=== PATIENT | female | born 1960 | race Caucasian/White ===

== ENCOUNTER → 2017-01-19 | Day surgery (SDC) | payer OTHER ==
[2017-01-11 07:52] VITALS: Ht 175.3 cm; Wt 90.9 kg
[~2017-01-19] VITALS: Ht 175.3 cm; Wt 90.9 kg
[~2017-01-19] MED LIST: 500ML BSS 0.3ML EPI 1:1000PF IRRIG ONE; ACETAMINOPHEN 325 MG TAB PO PRN; AMVISC PLUS 0.8ML SYRINGE INT OCU ONE; ATROPINE SULFATE 0.1 MG/ML 5ML SYR IV PRN; BSS FLUSH ONE; EpHEDrine SULFATE INJ 50 MG/ML AMP IV PRN; EpINEphrine INJ 1MG/ML AMP 1 MG/ML AMP ONE; FURO-85 PO; LACTATED RINGER'S 1000ML 500 ML IV SCH; LIDOCAINE 3.5% OPH GEL PER APPLICATION CHARGE ONE; LIDOCAINE HCL 1% MPF 2 ML VIAL ONE; METH10TA6 PO; MIDAZOLAM HCL 1 MG/ML 2ML VIAL ONE; OCUCOAT 1 ML SOLN IO ONE; PHENYLEPHRINE HCL 10% OP SOLN 5 ML BTL OPL ONE; POVIDONE-IODINE OP SOLN 30 ML BTL ONE; PRED1SUS3 OPL; PROPARACAINE 0.5% OP SOLN PER DROP CHARGE OPL SCH; PROPARACAINE HCL 0.5% OP SOLN 15 ML BTL OPL ONE; TOBRAMYCIN/DEXAMETHASONE OPH OINT PER APPLN CHARGE ONE; TRAZ50TA35 PO
[2017-01-19] MEDS: PHENYLEPHRINE HCL 2.5% OP SOLN PER DROP CHARGE OPL SCH ×2 (08:10→08:15)
[2017-01-19] MEDS: TROPICAMIDE 1% OP SOLN PER DROP CHARGE OPL SCH ×2 (08:11→08:16)
[2017-01-19] MEDS: CYCLOPENTOLATE HCL 1% OP SOLN PER DROP CHARGE OPL SCH ×2 (08:12→08:17)
[2017-01-19] MEDS: KETOROLAC 0.5% OP SOLN PER DROP CHARGE OPL SCH ×2 (08:13→08:18)
[2017-01-19] MEDS: GATIFLOXACIN OP SOLN PER DROP CHARGE OPL SCH ×2 (08:14→08:24)
--- NOTE | 2017-01-19 08:25 | History & Physical Bridge - [place] ---
H&P Re-Evaluation Bridge Note: I have examined the patient, reviewed the History & Physical and in the interval since the performance of the History & Physical I have noted the following changes of clinical significance: Diagnosis: Left Cataract Procedure: Left Cataract Removal with femtosecond laser with Lens Implant No changes noted
--- NOTE | 2017-01-19 09:19 | Discharge Instructions-SurgCtr ---
Discharge Instructions Visit Reason for Visit: Cataract Left Eye Discharge Discharge Diagnosis / Problem: cataract Discharge Goals Goal(s): Improve function Activity Recommendations Activity Limitations: per Instructions/Follow-up section Anesthesia . Post Anesthesia Instructions: If you have had General Anesthesia or IV Sedation: * Do not drive today. * Resume driving when surgeon permits. * Do not make important decisions or sign legal documents today. * Call surgeon for: 1. Temperature elevations greater than 101 degrees F. 2. Uncontrollable pain. 3. Excessive bleeding. 4. Persistent nausea and vomiting. 5. Medication intolerance (nausea, vomiting or rash). * For nausea and vomiting use only clear liquids such as: tea, soda, bouillon until nausea subsides, then gradually increase diet as tolerated. * If you have any concerns or questions, call your surgeon's office. If physician is unavailable and it is an emergency, call 911 or go to the nearest emergency room. . Instructions / Follow-Up Instructions / Follow-Up ACTIVITY RECOMMENDATIONS: * No strenuous lifting, jogging or running for 4 days * No swimming or yard work for 1 week. * Limited bending is permitted, such as putting on shoes. RETURN TO SCHOOL/WORK: No work until seen by physician in office. MEDICATIONS: Resume previous medications unless instructed otherwise by your surgeon. This includes eye drops for glaucoma. Zymaxid/Gatifloxacin (lee cap) - one drop every 2 hours until bedtime Nevanac/Ilevro/Prolensa/Ketorolac (bocanegra cap) - one drop every 4 hours until bedtime Prednisolone (white/pink cap, SHAKE WELL) - one drop every 2 hours until bedtime Starting tomorrow - all 3 drops every 4 hours until seen in the office Optive drops - as needed for discomfort SPECIAL CARE INSTRUCTIONS: * Wear eyeshield when sleeping, for four nights. * You may wear your own glasses or sunglasses while awake. * You may read or watch TV * You may shower and wash your face, but be gentle around the eye and pat dry. * Blurry vision and mild irritation are normal. * Call office if pain is more severe or vision becomes dark at . FOLLOW UP VISIT: Follow-up with Dr Valladares tomorrow. Diet Recommendations Home Diet: resume previous diet Procedures Procedures Performed: Left Cataract Phacoemulsification With Intraocular Lens Implant Pending Studies Studies pending at discharge: no Medical Emergencies . Who to Call and When: Medical Emergencies: If at any time you feel your situation is an emergency, please call 911 immediately. . Non-Emergent Contact Non-Emergency issues call your: [place] . . "Provider Documentation" section prepared by Brody Valladares.
[2017-01-19 09:21] VITALS: TEMP 36.5
--- NOTE | 2017-01-19 09:21 | [facility] Operative Report ---
Operative Report Date of Service Jan 19, 2017. Operative Report 1. PREOPERATIVE DIAGNOSIS: Cataract of the left eye. 2. POSTOPERATIVE DIAGNOSIS: Same. 3. PROCEDURE: Phacoemulsification with femtosecond intraocular lens implantation of the left eye. SURGEON: Dr. Brody Valladares. ANESTHESIA: Topical Lidocaine gel, 1% Non- Preserved intracameral Lidocaine, and monitored intravenous sedation. INDICATIONS FOR THE PROCEDURE: The patient is a 56 - year-old female with a history of cataract of the left eye causing significant visual impairment. The details of the proposed procedure were explained to the patient who asked appropriate questions and following discussion of all risks, benefits and alternatives agreed to have the procedure done. 4. OPERATION AND FINDINGS: DESCRIPTION OF PROCEDURE: After informed consent was obtained, the patient was brought to the Laser room at the [facility]. After docking with the LenSx Laser the capsulorhexis, lens chopping, and primary corneal incision were accomplished. The patient was brought to the Operating Room at the [facility]. The patient was placed in a supine position and then the left eye was prepped and draped in the usual sterile fashion for intraocular surgery. A drop of topical Lidocaine gel was placed in the operative eye. A wire lid speculum was then placed in the fornices. A corneal paracentesis was then created temporally. The Non-Preserved Lidocaine was then instilled into the anterior chamber. The anterior chamber was then pressurized with viscoelastic. A 2.0 mm clear corneal incision was then created temporally. A cystotome was inserted into the anterior chamber and used to verify a continuous curvilinear capsulorrhexis. Hydrodissection was accomplished with balanced salt solution. Phacoemulsification of the lens nucleus was then performed in a standard [id number] technique. The phaco time was 11 seconds with an average power of 4 %. The remaining cortical material was removed using irrigation aspiration. The capsular bag was then filled with viscoelastic. A Bausch & Lomb MI60L +05.0 diopters lens was then loaded into the injector and injected into the capsular bag. The remaining viscoelastic was removed with the irrigation aspiration handpiece. The wound was hydrated and then checked and found to be watertight. The intraocular pressure was checked and found to be adequate. The wire lid speculum was removed and the patient's face was cleaned and dried. TobraDex ointment was placed in the inferior fornix. The patient was discharged to the Recovery Room having tolerated the procedure well. There were no complications. The patient will be seen tomorrow in the office for follow-up. I attest to the content of the Intraoperative Record and any orders documented therein. Any exceptions are noted below.
[2017-01-19 09:36] VITALS: BP 160/89; PULSE 61; O2SAT 99
--- NOTE | 2017-01-19 09:45 | Anesthesia Progress Nt - [facility] ---
Anesthesia Post Op Note Date & Time Jan 19, 2017 at 09:45 Vital Signs Pain Intensity: 0 Vital Signs Past 12 Hours Date Time Temp Pulse Resp B/P Pulse Ox O2 Delivery O2 Flow Rate FiO2 01/19/17 09:36 61 16 160/89 99 Room Air 01/19/17 09:21 36.5 60 16 159/89 98 Room Air 01/19/17 08:58 65 16 177/108 98 01/19/17 08:53 68 16 179/98 99 01/19/17 08:00 36.4 63 16 138/87 97 Room Air Notes Mental Status: alert / awake / arousable, participated in evaluation Pt Amnestic to Procedure: Yes Nausea / Vomiting: adequately controlled Pain: adequately controlled Airway Patency, RR, SpO2: stable & adequate BP & HR: stable & adequate Hydration State: stable & adequate Anesthetic Complications: no major complications apparent
== END | disposition home or self-care (01) ==
LOC: X.SURG 07:49
PROVIDERS: ATTEND Ophthalmology
DX: H26.9 Unspecified cataract (principal); F17.200 Nicotine dependence, unspecified, uncomplicated; E05.00 Thyrotoxicosis with diffuse goiter without thyrotoxic crisis or storm; Z79.899 Other long term (current) drug therapy; E66.9 Obesity, unspecified; Z68.29 Body mass index [BMI] 29.0-29.9, adult; Z83.511 Family history of glaucoma; Z83.3 Family history of diabetes mellitus; Z82.3 Family history of stroke

== ENCOUNTER → 2017-02-09 | Day surgery (SDC) | payer OTHER ==
[2017-01-29 10:32] VITALS: Ht 175.3 cm; Wt 90.9 kg
[~2017-02-09] VITALS: Ht 175.3 cm; Wt 90.9 kg
[~2017-02-09] MED LIST changes: -EpHEDrine SULFATE INJ 50 MG/ML AMP IV PRN; -PHENYLEPHRINE HCL 10% OP SOLN 5 ML BTL OPL ONE; -PROPARACAINE 0.5% OP SOLN PER DROP CHARGE OPL SCH; +PROPARACAINE 0.5% OP SOLN PER DROP CHARGE OPR SCH; -PROPARACAINE HCL 0.5% OP SOLN 15 ML BTL OPL ONE
[2017-02-09] MEDS: PHENYLEPHRINE HCL 2.5% OP SOLN PER DROP CHARGE OPR SCH ×2 (07:38→07:43)
[2017-02-09] MEDS: TROPICAMIDE 1% OP SOLN PER DROP CHARGE OPR SCH ×2 (07:39→07:44)
[2017-02-09] MEDS: CYCLOPENTOLATE HCL 1% OP SOLN PER DROP CHARGE OPR SCH ×2 (07:40→07:45)
[2017-02-09] MEDS: KETOROLAC 0.5% OP SOLN PER DROP CHARGE OPR SCH ×2 (07:41→07:46)
[2017-02-09] MEDS: GATIFLOXACIN OP SOLN PER DROP CHARGE OPR SCH ×2 (07:42→07:52)
--- NOTE | 2017-02-09 07:43 | History & Physical Bridge - [place] ---
H&P Re-Evaluation Bridge Note: I have examined the patient, reviewed the History & Physical and in the interval since the performance of the History & Physical I have noted the following changes of clinical significance: No changes noted
--- NOTE | 2017-02-09 08:28 | [facility] Operative Report ---
Operative Report Date of Service Feb 09, 2017. Operative Report 1. PREOPERATIVE DIAGNOSIS: Cataract of the right eye. 2. POSTOPERATIVE DIAGNOSIS: Same. 3. PROCEDURE: Phacoemulsification with intraocular lens implantation of the right eye. SURGEON: Dr. Brody Valladares. ANESTHESIA: Topical Lidocaine gel, 1% Non- Preserved intracameral Lidocaine, and monitored intravenous sedation. INDICATIONS FOR THE PROCEDURE: The patient is a 56 - year-old female with a history of cataract of the right eye causing significant visual impairment. The details of the proposed procedure were explained to the patient who asked appropriate questions and following discussion of all risks, benefits and alternatives agreed to have the procedure done. 4. OPERATION AND FINDINGS: DESCRIPTION OF PROCEDURE: After informed consent was obtained, the patient was brought to the Operating Room at the [facility]. The patient was placed in a supine position and then the right eye was prepped and draped in the usual sterile fashion for intraocular surgery. A drop of topical Lidocaine gel was placed in the operative eye. A wire lid speculum was then placed in the fornices. A corneal paracentesis was then created temporally. The Non-Preserved Lidocaine was then instilled into the anterior chamber. The anterior chamber was then pressurized with viscoelastic. A 2.0 mm clear corneal incision was then created temporally. A cystotome was inserted into the anterior chamber and used to create a tear in the anterior lens capsule. This capsular tear was then used to create a small flap and the flap was dragged in a counterclockwise direction in order to create a continuous curvilinear capsulorrhexis. Hydrodissection was accomplished with balanced salt solution. Phacoemulsification of the lens nucleus was then performed in a standard [id number] technique. The phaco time was 18 seconds with an average power of 6 %. The remaining cortical material was removed using irrigation aspiration. The capsular bag was then filled with viscoelastic. A Bausch & Lomb MI60L +08.0 diopters lens was then loaded into the injector and injected into the capsular bag. The remaining viscoelastic was removed with the irrigation aspiration handpiece. The wound was hydrated and then checked and found to be watertight. The intraocular pressure was checked and found to be adequate. The wire lid speculum was removed and the patient's face was cleaned and dried. TobraDex ointment was placed in the inferior fornix. The patient was discharged to the Recovery Room having tolerated the procedure well. There were no complications. The patient will be seen tomorrow in the office for follow-up. I attest to the content of the Intraoperative Record and any orders documented therein. Any exceptions are noted below.
--- NOTE | 2017-02-09 08:28 | Discharge Instructions-SurgCtr ---
Discharge Instructions Date of Service Feb 09, 2017. Visit Reason for Visit: Cataract Right Eye Discharge Discharge Diagnosis / Problem: cataract Discharge Goals Goal(s): Improve function Activity Recommendations Activity Limitations: per Instructions/Follow-up section Anesthesia . Post Anesthesia Instructions: If you have had General Anesthesia or IV Sedation: * Do not drive today. * Resume driving when surgeon permits. * Do not make important decisions or sign legal documents today. * Call surgeon for: 1. Temperature elevations greater than 101 degrees F. 2. Uncontrollable pain. 3. Excessive bleeding. 4. Persistent nausea and vomiting. 5. Medication intolerance (nausea, vomiting or rash). * For nausea and vomiting use only clear liquids such as: tea, soda, bouillon until nausea subsides, then gradually increase diet as tolerated. * If you have any concerns or questions, call your surgeon's office. If physician is unavailable and it is an emergency, call 911 or go to the nearest emergency room. . Instructions / Follow-Up Instructions / Follow-Up ACTIVITY RECOMMENDATIONS: * No strenuous lifting, jogging or running for 4 days * No swimming or yard work for 1 week. * Limited bending is permitted, such as putting on shoes. RETURN TO SCHOOL/WORK: No work until seen by physician in office. MEDICATIONS: Resume previous medications unless instructed otherwise by your surgeon. This includes eye drops for glaucoma. Zymaxid/Gatifloxacin (lee cap) - one drop every 2 hours until bedtime Nevanac/Ilevro/Prolensa/Ketorolac (bocanegra cap) - one drop every 4 hours until bedtime Prednisolone (white/pink cap, SHAKE WELL) - one drop every 2 hours until bedtime Starting tomorrow - all 3 drops every 4 hours until seen in the office Optive drops - as needed for discomfort SPECIAL CARE INSTRUCTIONS: * Wear eyeshield when sleeping, for four nights. * You may wear your own glasses or sunglasses while awake. * You may read or watch TV * You may shower and wash your face, but be gentle around the eye and pat dry. * Blurry vision and mild irritation are normal. * Call office if pain is more severe or vision becomes dark at . FOLLOW UP VISIT: Follow-up with Dr Valladares tomorrow. Diet Recommendations Home Diet: resume previous diet Procedures Procedures Performed: Right Cataract Phacoemulsification With Intraocular Lens Implant Pending Studies Studies pending at discharge: no Medical Emergencies . Who to Call and When: Medical Emergencies: If at any time you feel your situation is an emergency, please call 911 immediately. . Non-Emergent Contact Non-Emergency issues call your: Office Support Assistant . . "Provider Documentation" section prepared by Brody Valladares.
[2017-02-09 08:29] VITALS: TEMP 36.5
--- NOTE | 2017-02-09 08:31 | Anesthesia Progress Nt - [facility] ---
Anesthesia Post Op Note Date & Time Feb 09, 2017 at 08:31 Vital Signs Pain Intensity: 0 Vital Signs Past 12 Hours Date Time Temp Pulse Resp B/P Pulse Ox O2 Delivery O2 Flow Rate FiO2 02/09/17 07:18 36.5 69 16 149/87 95 Room Air Notes Mental Status: alert / awake / arousable, participated in evaluation Pt Amnestic to Procedure: Yes Nausea / Vomiting: adequately controlled Pain: adequately controlled Airway Patency, RR, SpO2: stable & adequate BP & HR: stable & adequate Hydration State: stable & adequate Anesthetic Complications: no major complications apparent
[2017-02-09 08:51] VITALS: BP 155/88; PULSE 64; O2SAT 100
== END | disposition home or self-care (01) ==
LOC: X.SURG 07:03
PROVIDERS: ATTEND Ophthalmology
DX: H26.9 Unspecified cataract (principal); H54.7 Unspecified visual loss; E05.00 Thyrotoxicosis with diffuse goiter without thyrotoxic crisis or storm; F17.200 Nicotine dependence, unspecified, uncomplicated

== ENCOUNTER 2023-02-06 13:29 | Inpatient (IN) ==
--- NOTE | 2023-02-06 14:16 | XRay Report ---
XR chest 1V portable CLINICAL HISTORY: Sepsis COMPARISON STUDY: Chest radiograph June 19, 2014. Chest CT January 13, 2013. FINDINGS: Right internal jugular [id number] is in place. There is no pneumothorax or pleural effus ion. Linear bilateral densities favor atelectasis or scarring. No evidence for pulmonary edema. Cardi omediastinal silhouette is unremarkable. IMPRESSION: 1. No acute cardiopulmonary findings. 2. Linear lower lung densities suggestive of atelectasis. ACT 112: Negative or not required by law. Electronically signed by: Leonides Aiken M.D. 02/06/2023 2:15 PM
[2023-02-06] MEDS ORDERED: CEFEPIME 2,000 MG/20 ML VIAL IV STA (14:26)
[2023-02-06] MEDS ORDERED: MoRPHine SULFATE 4 MG/ML 1 ML CARP\\VIAL IV STA (14:26)
[2023-02-06] MEDS ORDERED: ONDANSETRON INJ 2 MG/ML 2 ML VIAL IV STA (14:26)
--- NOTE | 2023-02-06 14:26 | Emergency Department Note ---
Impression & Plan Perforated bowel, Metastatic colon cancer in female, Abdominal abscess ED Provider Note NAME: ANISA BAXTER AGE: 62 SEX: F : 1960 ARRIVES VIA: Walk-In INFORMANT: Patient ED PROVIDER(S): Reese Lewis DO CHIEF COMPLAINT: Fever HPI: Patient is a 62-year-old female with a past medical history of metastatic colon cancer whs currently undergoing radiation that started this week. She was received radiation all week. She is currently receiving it here at [place]. She notes that she is having lower back pain as well as fevers of 101-102 and abdominal pain. She does not think her abdominal pain got significantly worse. She denies any headache or change in vision. No cough or congestion. No runny nose or sore throat. No chest pain or shortness of breath. No dysuria, urgency, or frequency. No other exacerbating or remitting factors. She has not started chemotherapy yet. PAST MEDICAL HISTORY:See Below PAST SURGICAL HISTORY:See Below FAMILY HISTORY:See Below SOCIAL HISTORY:See Below HOME MEDICATIONS:See Below ALLERGIES:See Below VITALS:See Below PHYSICAL EXAMINATION: GENERAL: Sitting up in bed, alert, disheveled, slightly ill-appearing EYE EXAM: normal conjunctiva. OROPHARYNX: mucous membranes are dry NECK: supple, no nuchal rigidity, no adenopathy, non-tender LUNGS: Clear to auscultation. Normal chest wall mechanics HEART: no murmurs, S1 normal and S2 normal ABDOMEN: abdomen soft, diffuse tenderness throughout the lower r, normo-active bowel sounds, no masses, no rebound or guarding. UPPER EXTREMITIES: upper extremities are grossly normal. LOWER EXTREMITIES: No pitting edema. NEURO EXAM: Normal sensorium, cranial nerves II-XII grossly intact, normal speech, no gross weakness of arms, no gross weakness of legs. MEDICAL DECISION MAKING: Patient is a 62-year-old female who with known rectal cancer that presents ER for abdominal pain and fever as well as back pain. IV was established blood work is obtained. Labs show mild leukocytosis of 11,000. Mild anemia 8.5 consistent with previous. BMP with mild hypokalemia 3.3. LFTs bilirubin was unremarkable. Troponin slightly up at 20 but was downward trending. Pro-Ke elevated at 1.8. UA was clean. Bio fire was negative including COVID. CT abdomen pelvis shows rectal cancer with perforation and contained in a likely abscess. Did discuss with Sina Aiken from IR who recommended transferring. Discussed with Dr. Cornelius from general surgery who recommended transferring. Jovani candelario this discussed with Dr. Montilla from [facility] after discussion with the patient who prefer to go to [facility]. Patient was accepted in transfer. She was given IV cefepime and Flagyl while in the ER as well as 2.5 L of IV fluids. She is updated bedside. Due to the current transportation issues she will not be able to go until midmorning tomorrow and consequently she was discussed with Dr. Pedraza approved for further observation management overnight. She was given multiple doses of morphine while in the ER. Is currently a full code. Triage Nursing notes reviewed. Limited review of prior medical records performed Vital Signs: reviewed and remarkable for tachy Differential diagnosis: Differential diagnosis includes etiologies such as sepsis, UTI, pneumonia, metabolic, electrolyte abnormalities, cardiac sources, intracerebral event, toxicologic, neurological, as well as others were entertained. ER treatment provided: See below Diagnostics interpreted by me include EKG and cardiac monitoring as listed below: -Cardiac Monitoring: An order was placed for continuous cardiac monitoring. The monitor shows a rate of 80 with sinus rhythm. -ECG: none -Laboratory studies:Interpreted by me as stated above in MDM and shown below. Imaging studies: Xrays: As interpreted by me:none CTs show: CT abdomen pelvis per radiology shows perforated bowel with a walled off likely abscess Consultation(s): Discussed with our radiologist/IR, her surgeon as well is [facility]'s acute care surgery Dr. Montilla and her hospitalist Dr. Pedraza approved for admission while awaiting transfer Procedures:none Critical Care: None Past Med/Surg History Medical History (Updated 02/06/23 @ 19:54 by Reese Lewis DO) Graves disease Metastatic colon cancer in female (01/01/23) No pertinent past medical history Surgical History (Updated 01/25/23 @ 08:22 by Faiza Lombardo, SUJEY) History of cervical cerclage History of liver biopsy 01/01/23 Hx of cataract surgery Bilateral Hx of colonoscopy 01/01/23 with biopsy of colon mass Previous section S/P fine needle aspiration Pancreas on 01/01/23 Family History (Updated 01/25/23 @ 08:25 by Faiza Lombardo, SUJEY) Mother , 86yo Cervical cancer Hypertension Father , 86yo Diverticulitis CHF (congestive heart failure) Hypertension Brother No problems noted. Brother No problems noted. Brother No problems noted. Sister Hypertension Sister Hypertension Sister No problems noted. Daughter No problems noted. Daughter No problems noted. 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 How many Children do You have: 2 Feels Safe at Home: Yes caffeine: Yes (3-4 cups/day) during the past year weight has: decreased > 10 lbs Allergies Allergies Allergy/AdvReac Type Severity Reaction Status Date / Time amoxicillin Allergy Severe FACE Verified 02/06/23 15:07 SWELLED bupropion Allergy Severe ANAPHYLAXIS Verified 02/06/23 15:07 Home Meds Home Medications Medication Instructions Recorded Confirmed multivitamin 1 tab PO DAILY 12/30/22 02/06/23 docusate sodium 100 mg capsule 100 mg PO DAILY PRN Constipation 01/25/23 02/06/23 (Colace) lisinopril 10 mg tablet 10 mg PO DAILY 01/25/23 02/06/23 ondansetron HCl 4 mg tablet 4 mg PO Q8H PRN Nausea 01/25/23 02/06/23 sennosides 8.6 mg tablet 8.6 mg PO DAILY PRN Constipation 01/25/23 02/06/23 (Evac-U-Gen (sennosides)) tramadol 50 mg tablet 50 mg PO Q6H PRN Pain 01/25/23 02/06/23 acetaminophen 650 mg 650 mg PO Q12H PRN Pain 02/06/23 02/06/23 tablet,extended release (Tylenol Arthritis Pain) Results & Data (ED) Vital Signs Vital Signs - 24 hr 02/06/23 13:36 02/06/23 14:39 02/06/23 15:09 Temperature 36 C L Temperature Source Temporal Artery Scan Pulse Rate 107 H 97 H Pulse Rate [Apical] Pulse Rate from SpO2 Sensor 95 H Pulse Rhythm [Apical] Respiratory Rate 16 19 Respiratory Effort / Characteristics Non-Labored Respiratory Depth Normal Respiratory Pattern Blood Pressure 134/63 166/77 H 154/81 H Blood Pressure [Right Arm] Blood Pressure Mean 86 106 105 Blood Pressure Mean [Right Arm] Blood Pressure Position [Right Arm] Pulse Oximetry 96 95 Oxygen Delivery Method Room Air Room Air Sepsis Recent Fever Within 48 Hours Yes Sepsis New/Unexplained Change in Mental Status No Sepsis Action Taken by Nursing No Action Required 02/06/23 15:50 02/06/23 15:09 02/06/23 15:15 Temperature Temperature Source Pulse Rate 89 93 H 93 H Pulse Rate [Apical] Pulse Rate from SpO2 Sensor 94 H 94 H Pulse Rhythm [Apical] Respiratory Rate 21 Respiratory Effort / Characteristics Respiratory Depth Respiratory Pattern Blood Pressure 154/81 H 161/70 H Blood Pressure [Right Arm] Blood Pressure Mean 105 100 Blood Pressure Mean [Right Arm] Blood Pressure Position [Right Arm] Pulse Oximetry 94 Oxygen Delivery Method Sepsis Recent Fever Within 48 Hours Sepsis New/Unexplained Change in Mental Status Sepsis Action Taken by Nursing 02/06/23 15:30 02/06/23 15:45 02/06/23 16:00 Temperature Temperature Source Pulse Rate 92 H 93 H 90 Pulse Rate [Apical] Pulse Rate from SpO2 Sensor 92 H 93 H Pulse Rhythm [Apical] Respiratory Rate 18 20 15 Respiratory Effort / Characteristics Respiratory Depth Respiratory Pattern Blood Pressure 165/72 H 159/82 H 149/60 H Blood Pressure [Right Arm] Blood Pressure Mean 103 107 89 Blood Pressure Mean [Right Arm] Blood Pressure Position [Right Arm] Pulse Oximetry 93 94 94 Oxygen Delivery Method Sepsis Recent Fever Within 48 Hours Sepsis New/Unexplained Change in Mental Status Sepsis Action Taken by Nursing 02/06/23 17:21 02/06/23 17:25 02/06/23 17:21 Temperature 36.9 C Temperature Source Oral Pulse Rate 84 Pulse Rate [Apical] 85 82 Pulse Rate from SpO2 Sensor Pulse Rhythm [Apical] Regular Respiratory Rate 19 18 20 Respiratory Effort / Characteristics Non-Labored Spontaneous Non-Labored Spontaneous Respiratory Depth Normal Respiratory Pattern Blood Pressure Blood Pressure [Right Arm] 159/88 H 159/88 H Blood Pressure Mean Blood Pressure Mean [Right Arm] 111 111 Blood Pressure Position [Right Arm] Semi-fowlers Pulse Oximetry 95 97 95 Oxygen Delivery Method Room Air Room Air Sepsis Recent Fever Within 48 Hours Sepsis New/Unexplained Change in Mental Status Sepsis Action Taken by Nursing 02/06/23 18:00 02/06/23 18:45 02/06/23 19:28 Temperature Temperature Source Pulse Rate 82 Pulse Rate [Apical] 83 83 Pulse Rate from SpO2 Sensor Pulse Rhythm [Apical] Respiratory Rate 14 16 Respiratory Effort / Characteristics Non-Labored Spontaneous Respiratory Depth Normal Respiratory Pattern Regular Blood Pressure Blood Pressure [Right Arm] 168/102 H 161/89 H Blood Pressure Mean Blood Pressure Mean [Right Arm] 124 113 Blood Pressure Position [Right Arm] Pulse Oximetry 95 92 Oxygen Delivery Method Room Air Room Air Sepsis Recent Fever Within 48 Hours Sepsis New/Unexplained Change in Mental Status Sepsis Action Taken by Nursing Laboratory Data 02/06/23 14:32 02/06/23 14:32 Lab Results 02/06/23 02/06/23 02/06/23 Range/Units 14:32 14:32 14:32 WBC 11.48 H (4.8-10.8) K/ul RBC 3.72 L (4.20-5.40) M/uL Hgb 8.5 L (12.0-16.0) g/dl Hct 27.5 L (37.0-47.0) % MCV 73.9 L (80.0-100.0) fL MCH 22.8 L (25.0-34.0) pg MCHC 30.9 L (32.0-36.0) g/dL RDW Std Deviation 59.4 H (36.4-46.3) fL RDW Coeff of Roberto Carlos 23.9 H (11.5-14.5) % Plt Count 359 (130-400) K/uL MPV 9.9 (9.4-12.4) fL Immature Gran % (Auto) 2.0 % Neut % (Auto) 92.8 % Lymph % (Auto) 1.6 % [place] % (Auto) 3.0 % Eos % (Auto) 0.1 % Baso % (Auto) 0.5 % Neut # (Auto) 10.66 H (1.40-6.50) K/uL Lymph # (Auto) 0.18 L (1.2-3.4) K/uL [place] # (Auto) 0.34 (0.11-0.59) K/uL Eos # (Auto) 0.01 (0-0.50) K/uL Baso # (Auto) 0.06 (0-0.2) K/uL Immature Gran # (Auto) 0.23 H (0.01-0.20) K/uL Polychromasia 1+ Anisocytosis Present Sodium 132 L (136-145) mmol/L Potassium 3.3 L (3.5-5.1) mmol/L Chloride 99 (98-107) mmol/L Carbon Dioxide 23 (21-32) mmol/L Anion Gap 10 (3-11) BUN 14 (6-23) mg/dl Creatinine 0.54 L (0.6-1.2) mg/dl Est Cr Clr Drug Dosing 125.6 ml/min Est GFR ( Amer) 117.2 ml/min Est GFR (Non-Af Amer) 101.1 ml/min BUN/Creatinine Ratio 25.9 H (10-20) Glucose 102 H (70-99(Fasting)) mg/dl Lactate (0.4-2.0) mmol/L Calcium 9.3 (8.5-10.1) mg/dl Magnesium 1.8 (1.7-2.4) mg/dl Total Bilirubin 0.7 (0.2-1.0) mg/dl Direct Bilirubin 0.3 H (0-0.2) mg/dl AST 53 H (13-39) U/L ALT 20 (7-52) U/L Alkaline Phosphatase 493 H (34-104) U/L Troponin I High Sens 23.7 H (0-14) pg/ml Total Protein 6.7 (6.0-8.3) gm/dl Albumin 3.2 L (3.4-5.0) gm/dl Procalcitonin 1.84 H (0-0.5) ng/ml Urine Color Urine Appearance (Clear) Urine pH (4.5-7.5) Ur Specific [place] (1.000-1.030) Urine Protein (Negative) Urine Glucose (UA) (Negative) Urine Ketones (Negative) Urine Blood (Negative) Urine Nitrite (Negative) Urine Bilirubin (Negative) Urine Urobilinogen (Negative) Ur Leukocyte Esterase (Negative) Adenovirus (PCR) (NotDetected) B. pertussis DNA (PCR) (NotDetected) B.parapertussis DNA PCR (NotDetected) C. pneumoniae DNA (PCR) (NotDetected) Coronavirus OC43 (PCR) (NotDetected) Coronavirus HKU1 (PCR) (NotDetected) Coronavirus 229E (PCR) (NotDetected) SARS-CoV-2 (PCR) (NotDetected) Coronavirus NL63 (PCR) (NotDetected) Human Metapneumovir PCR (NotDetected) Influenza Type A (PCR) (NotDetected) Influenza Type B (PCR) (NotDetected) M. pneumoniae (PCR) (NotDetected) Parainfluenza 1 (PCR) (NotDetected) Parainfluenza 2 (PCR) (NotDetected) Parainfluenza 3 (PCR) (NotDetected) Parainfluenza 4 (PCR) (NotDetected) RSV (PCR) (NotDetected) Entero/Rhino (PCR) (NotDetected) 02/06/23 02/06/23 02/06/23 Range/Units 14:37 14:46 16:36 WBC (4.8-10.8) K/ul RBC (4.20-5.40) M/uL Hgb (12.0-16.0) g/dl Hct (37.0-47.0) % MCV (80.0-100.0) fL MCH (25.0-34.0) pg MCHC (32.0-36.0) g/dL RDW Std Deviation (36.4-46.3) fL RDW Coeff of Roberto Carlos (11.5-14.5) % Plt Count (130-400) K/uL MPV (9.4-12.4) fL Immature Gran % (Auto) % Neut % (Auto) % Lymph % (Auto) % [place] % (Auto) % Eos % (Auto) % Baso % (Auto) % Neut # (Auto) (1.40-6.50) K/uL Lymph # (Auto) (1.2-3.4) K/uL [place] # (Auto) (0.11-0.59) K/uL Eos # (Auto) (0-0.50) K/uL Baso # (Auto) (0-0.2) K/uL Immature Gran # (Auto) (0.01-0.20) K/uL Polychromasia Anisocytosis Sodium (136-145) mmol/L Potassium (3.5-5.1) mmol/L Chloride (98-107) mmol/L Carbon Dioxide (21-32) mmol/L Anion Gap (3-11) BUN (6-23) mg/dl Creatinine (0.6-1.2) mg/dl Est Cr Clr Drug Dosing ml/min Est GFR ( Amer) ml/min Est GFR (Non-Af Amer) ml/min BUN/Creatinine Ratio (10-20) Glucose (70-99(Fasting)) mg/dl Lactate 2.3 H* 1.8 (0.4-2.0) mmol/L Calcium (8.5-10.1) mg/dl Magnesium (1.7-2.4) mg/dl Total Bilirubin (0.2-1.0) mg/dl Direct Bilirubin (0-0.2) mg/dl AST (13-39) U/L ALT (7-52) U/L Alkaline Phosphatase (34-104) U/L Troponin I High Sens (0-14) pg/ml Total Protein (6.0-8.3) gm/dl Albumin (3.4-5.0) gm/dl Procalcitonin (0-0.5) ng/ml Urine Color Urine Appearance (Clear) Urine pH (4.5-7.5) Ur Specific [place] (1.000-1.030) Urine Protein (Negative) Urine Glucose (UA) (Negative) Urine Ketones (Negative) Urine Blood (Negative) Urine Nitrite (Negative) Urine Bilirubin (Negative) Urine Urobilinogen (Negative) Ur Leukocyte Esterase (Negative) Adenovirus (PCR) Not Detected (NotDetected) B. pertussis DNA (PCR) Not Detected (NotDetected) B.parapertussis DNA PCR Not Detected (NotDetected) C. pneumoniae DNA (PCR) Not Detected (NotDetected) Coronavirus OC43 (PCR) Not Detected (NotDetected) Coronavirus HKU1 (PCR) Not Detected (NotDetected) Coronavirus 229E (PCR) Not Detected (NotDetected) SARS-CoV-2 (PCR) Not Detected (NotDetected) Coronavirus NL63 (PCR) Not Detected (NotDetected) Human Metapneumovir PCR Not Detected (NotDetected) Influenza Type A (PCR) Not Detected (NotDetected) Influenza Type B (PCR) Not Detected (NotDetected) M. pneumoniae (PCR) Not Detected (NotDetected) Parainfluenza 1 (PCR) Not Detected (NotDetected) Parainfluenza 2 (PCR) Not Detected (NotDetected) Parainfluenza 3 (PCR) Not Detected (NotDetected) Parainfluenza 4 (PCR) Not Detected (NotDetected) RSV (PCR) Not Detected (NotDetected) Entero/Rhino (PCR) Not Detected (NotDetected) 02/06/23 02/06/23 Range/Units 17:20 17:57 WBC (4.8-10.8) K/ul RBC (4.20-5.40) M/uL Hgb (12.0-16.0) g/dl Hct (37.0-47.0) % MCV (80.0-100.0) fL MCH (25.0-34.0) pg MCHC (32.0-36.0) g/dL RDW Std Deviation (36.4-46.3) fL RDW Coeff of Roberto Carlos (11.5-14.5) % Plt Count (130-400) K/uL MPV (9.4-12.4) fL Immature Gran % (Auto) % Neut % (Auto) % Lymph % (Auto) % [place] % (Auto) % Eos % (Auto) % Baso % (Auto) % Neut # (Auto) (1.40-6.50) K/uL Lymph # (Auto) (1.2-3.4) K/uL [place] # (Auto) (0.11-0.59) K/uL Eos # (Auto) (0-0.50) K/uL Baso # (Auto) (0-0.2) K/uL Immature Gran # (Auto) (0.01-0.20) K/uL Polychromasia Anisocytosis Sodium (136-145) mmol/L Potassium (3.5-5.1) mmol/L Chloride (98-107) mmol/L Carbon Dioxide (21-32) mmol/L Anion Gap (3-11) BUN (6-23) mg/dl Creatinine (0.6-1.2) mg/dl Est Cr Clr Drug Dosing ml/min Est GFR ( Amer) ml/min Est GFR (Non-Af Amer) ml/min BUN/Creatinine Ratio (10-20) Glucose (70-99(Fasting)) mg/dl Lactate (0.4-2.0) mmol/L Calcium (8.5-10.1) mg/dl Magnesium (1.7-2.4) mg/dl Total Bilirubin (0.2-1.0) mg/dl Direct Bilirubin (0-0.2) mg/dl AST (13-39) U/L ALT (7-52) U/L Alkaline Phosphatase (34-104) U/L Troponin I High Sens 17.0 H D (0-14) pg/ml Total Protein (6.0-8.3) gm/dl Albumin (3.4-5.0) gm/dl Procalcitonin (0-0.5) ng/ml Urine Color Yellow Urine Appearance Clear (Clear) Urine pH 6.5 (4.5-7.5) Ur Specific [place] 1.010 (1.000-1.030) Urine Protein Negative (Negative) Urine Glucose (UA) Negative (Negative) Urine Ketones Trace H (Negative) Urine Blood Negative (Negative) Urine Nitrite Negative (Negative) Urine Bilirubin Negative (Negative) Urine Urobilinogen Negative (Negative) Ur Leukocyte Esterase Negative (Negative) Adenovirus (PCR) (NotDetected) B. pertussis DNA (PCR) (NotDetected) B.parapertussis DNA PCR (NotDetected) C. pneumoniae DNA (PCR) (NotDetected) Coronavirus OC43 (PCR) (NotDetected) Coronavirus HKU1 (PCR) (NotDetected) Coronavirus 229E (PCR) (NotDetected) SARS-CoV-2 (PCR) (NotDetected) Coronavirus NL63 (PCR) (NotDetected) Human Metapneumovir PCR (NotDetected) Influenza Type A (PCR) (NotDetected) Influenza Type B (PCR) (NotDetected) M. pneumoniae (PCR) (NotDetected) Parainfluenza 1 (PCR) (NotDetected) Parainfluenza 2 (PCR) (NotDetected) Parainfluenza 3 (PCR) (NotDetected) Parainfluenza 4 (PCR) (NotDetected) RSV (PCR) (NotDetected) Entero/Rhino (PCR) (NotDetected) Administered Medications Discontinued Medications Cefepime HCl (Maxipime) 2,000 mg in 20 mls @ 5 mls/min IV NOW STA; Protocol Stop: 02/06/23 14:29 Last Admin: 02/06/23 14:43 Dose: 5 mls/min Documented By: AB Sodium Chloride (Nss 1000ml) 1,000 mls @ 999 mls/hr IV .Q1H1M ONE Stop: 02/06/23 15:30 Last Infusion: 02/06/23 15:55 Dose: 0 mls/hr Documented By: Admin: 02/06/23 14:43 Dose: 999 mls/hr Documented By: AB Sodium Chloride (Nss) 500 mls @ 999 mls/hr IV .Q31M ONE Stop: 02/06/23 18:12 Last Infusion: 02/06/23 18:39 Dose: 0 mls/hr Documented By: Admin: 02/06/23 18:06 Dose: 999 mls/hr Documented By: AB Metronidazole (Flagyl) 500 mg in 100 mls @ 100 mls/hr IV NOW STA Stop: 02/06/23 19:25 Last Admin: 02/06/23 18:54 Dose: 100 mls/hr Documented By: AB Ioversol (Optiray 350 100ml) 83 ml IV ONCE ONE Stop: 02/06/23 16:50 Last Admin: 02/06/23 16:50 Dose: 83 ml Documented By: DAYTON Morphine Sulfate (Morphine Sulfate 4 Mg/Ml 1 Ml Carp\Vial) 4 mg IV NOW STA Stop: 02/06/23 14:27 Last Admin: 02/06/23 14:43 Dose: 4 mg Documented By: AB Morphine Sulfate (Morphine Sulfate 10 Mg/Ml Carp/Vial) 6 mg IV NOW STA Stop: 02/06/23 17:43 Last Admin: 02/06/23 18:04 Dose: 6 mg Documented By: VERA Ondansetron HCl (Ondansetron Inj 2 Mg/Ml 2 Ml Vial) 4 mg IV NOW STA Stop: 02/06/23 14:27 Last Admin: 02/06/23 14:43 Dose: 4 mg Documented By: AB Imaging Data Radiologist's Impression: Chest X-Ray 02/06/23 13:51 XR chest 1V portable CLINICAL HISTORY: Sepsis COMPARISON STUDY: Chest radiograph June 19, 2014. Chest CT January 13, 2013. FINDINGS: Right internal jugular [id number] is in place. There is no pneumothorax or pleural effusion. Linear bilateral densities favor atelectasis or scarring. No evidence for pulmonary edema. Cardiomediastinal silhouette is unremarkable. IMPRESSION: 1. No acute cardiopulmonary findings. 2. Linear lower lung densities suggestive of atelectasis. ACT 112: Negative or not required by law. Electronically signed by: Leonides Aiken M.D. 02/06/2023 2:15 PM Abdomen/Pelvis CT 02/06/23 15:37 CT OF THE ABDOMEN AND PELVIS WITH CONTRAST CLINICAL HISTORY: Abdominal pain and fever. Cancer. COMPARISON STUDY: CT of the abdomen and pelvis December 30, 2022. Treatment planning CT January 27, 2023. TECHNIQUE: Following IV administration of 83 mL of Optiray, axial images of the abdomen and pelvis were obtained from the lung bases to the proximal femurs. Images were reviewed in the axial, sagittal, and coronal planes. IV contrast was administered without complication. Automated exposure control was utilized for the study. A dose lowering technique was utilized adhering to the principles of ALARA. CT DOSE: 563.39 mGy.cm FINDINGS: A few small nodules within the lower lungs are unchanged since prior CT. Linear densities within the lower lungs favor atelectasis. No pneumatosis, free air or portal venous gas is present. Extensive hepatic metastases have mildly increased in size since CT of December 30, 2022. Index right hepatic dome lesion on axial image 44 of 471 measures 6.6 cm. It previously measured 5.9 cm. Lateral segment lesion on image 81 measures 5.9 cm. It previously measured 5 cm. There is no biliary or pancreatic ductal dilatation. The enhancing mass within the pancreatic body is unchanged. This measures 5.5 x 4.8 cm. The spleen, adrenal glands and kidneys are unremarkable. There is no hydronephrosis. A cystic left adnexal lesion measuring 6.4 cm likely arises from the left ovary. There is no evidence for a bowel obstruction. The appendix is normal. Ulcerated rectosigmoid mass is again noted. Adjacent metastatic implants have mildly progressed since CT of December 30, 2022. Gas and fluid containing collection at the site of tumor is noted. The fluid collection measures 6.3 x 5.9 cm. This is new since prior exam. Rectal wall thickening with stranding is unchanged. The mass displaces the uterus, as before. No suspicious osseous lesions are present. There is a moderate amount stool within the colon. Major vasculature is patent. IMPRESSION: 1. Redemonstration of an ulcerated rectosigmoid mass consistent with malignancy. Interval development of gas and fluid containing collection at the site of tumor which favors a contained perforation with possible abscess formation. No bowel obstruction. Progression of adjacent metastatic implants. 2. Extensive hepatic metastases which have mildly increased since prior CT. 3. No change in the pancreatic body mass which remains indeterminate. 4. Moderate amount of stool within the colon. ACT 112: Negative or not required by law. Electronically signed by: Leonides Aiken M.D. 02/06/2023 5:25 PM Discharge Plan Visit Data Chief Complaint: Fever Stated Complaint: FEVER, BACK PAIN ED Provider: Reese Lewis Discharge Problem: Perforated bowel, Metastatic colon cancer in female, Abdominal abscess Forms Stand Alone Forms: My [employer] Prescriptions Prescriptions: No Action tramadol 50 mg tablet 50 mg PO Q6H PRN (Reason: Pain) docusate sodium [Colace] 100 mg capsule 100 mg PO DAILY PRN (Reason: Constipation) lisinopril 10 mg tablet 10 mg PO DAILY sennosides [Evac-U-Gen (sennosides)] 8.6 mg tablet 8.6 mg PO DAILY PRN (Reason: Constipation) ondansetron HCl 4 mg tablet 4 mg PO Q8H PRN (Reason: Nausea) multivitamin Tablet 1 tab PO DAILY acetaminophen [Tylenol Arthritis Pain] 650 mg Tablet Extended Release 650 mg PO Q12H PRN (Reason: Pain) Referrals Referrals: PCP,NO [Physician] -
[2023-02-06] MEDS ORDERED: SODIUM CHLORIDE 0.9% 1000ML 1,000 ML IV ONE (14:30)
[2023-02-06 14:54] LABS: Hematocrit (blood only) 27.5 % (37.0-47.0); Hemoglobin 8.5 g/dl (12.0-16.0); Mean Corpuscular Hemoglobin 22.8 pg (25.0-34.0); Mean Corpuscular Hgb Conc 30.9 g/dL (32.0-36.0); Mean Corpuscular Volume 73.9 fL (80.0-100.0); Mean Platelet Volume 9.9 fL (9.4-12.4); Platelet Count 359 K/uL (130-400); RDW Coefficient of Variation 23.9 % (11.5-14.5); RDW Standard Deviation 59.4 fL (36.4-46.3); Red Blood Count 3.72 M/uL (4.20-5.40); White Blood Count 11.48 K/ul (4.8-10.8)
[2023-02-06 15:06] LABS: Albumin Level 3.2 gm/dl (3.4-5.0); BUN Creatinine Ratio 25.9 (10-20); Bilirubin Direct 0.3 mg/dl (0-0.2); Bilirubin,Total 0.7 mg/dl (0.2-1.0); Calcium 9.3 mg/dl (8.5-10.1); Creatinine Clr Calc Pharmacy 125.6 ml/min; Est GFR (African American) 117.2 ml/min; Est GFR (Non-African American) 101.1 ml/min; Magnesium 1.8 mg/dl (1.7-2.4); Potassium 3.3 mmol/L (3.5-5.1); Total Protein 6.7 gm/dl (6.0-8.3)
[2023-02-06 15:11] LABS: Anisocytosis Present; Basophils # (auto) 0.06 K/uL (0-0.2); Basophils % (auto) 0.5 %; Eosinophils # (auto) 0.01 K/uL (0-0.50); Eosinophils % (auto) 0.1 %; Immature Granulocytes # (auto) 0.23 K/uL (0.01-0.20); Lymphocytes # (auto) 0.18 K/uL (1.2-3.4); Lymphocytes % (auto) 1.6 %; Monocytes # (auto) 0.34 K/uL (0.11-0.59); Neutrophils # (auto) 10.66 K/uL (1.40-6.50); Neutrophils % (auto) 92.8 %; Polychromasia 1+
[2023-02-06 15:12] LABS: Troponin I High Sensitivity 23.7 pg/ml (0-14)
[2023-02-06 15:35] LABS: Adenovirus PCR Not Detected (NotDetected); Bordetella parapertussis PCR Not Detected (NotDetected); Bordetella pertussis PCR Not Detected (NotDetected); Chlamydia pneumoniae PCR Not Detected (NotDetected); Coronavirus 229E PCR Not Detected (NotDetected); Coronavirus CoV-2 (COVID19)PCR Not Detected (NotDetected); Coronavirus HKU1 PCR Not Detected (NotDetected); Coronavirus NL63 PCR Not Detected (NotDetected); Coronavirus OC43PCR Not Detected (NotDetected); Human Metapneumovirus PCR Not Detected (NotDetected); Influenza A PCR Not Detected (NotDetected); Influenza B PCR Not Detected (NotDetected); Mycoplasma pneumoniae PCR Not Detected (NotDetected); Parainfluenza Virus 1 PCR Not Detected (NotDetected); Parainfluenza Virus 2 PCR Not Detected (NotDetected); Parainfluenza Virus 3 PCR Not Detected (NotDetected); Parainfluenza Virus 4 PCR Not Detected (NotDetected); Respiratory Syncytial VirusPCR Not Detected (NotDetected); Rhinovirus/Enterovirus PCR Not Detected (NotDetected)
[2023-02-06] MEDS ORDERED: OPTIRAY 350 100ml IV ONE (16:49)
--- NOTE | 2023-02-06 17:27 | CT Scan Report ---
CT OF THE ABDOMEN AND PELVIS WITH CONTRAST CLINICAL HISTORY: Abdominal pain and fever. Cancer. COMPARISON STUDY: CT of the abdomen and pelvis December 30, 2022. Treatment planning CT January 27, 2023 . TECHNIQUE: Following IV administration of 83 mL of Optiray, axial images of the abdomen and pelvis we re obtained from the lung bases to the proximal femurs. Images were reviewed in the axial, sagittal, and coronal planes. IV contrast was administered without complication. Automated exposure control wa s utilized for the study. A dose lowering technique was utilized adhering to the principles of ALARA . CT DOSE: 563.39 mGy.cm FINDINGS: A few small nodules within the lower lungs are unchanged since prior CT. Linear densities w ithin the lower lungs favor atelectasis. No pneumatosis, free air or portal venous gas is present. Ex tensive hepatic metastases have mildly increased in size since CT of December 30, 2022. Index right he patic dome lesion on axial image 44 of 471 measures 6.6 cm. It previously measured 5.9 cm. Lateral se gment lesion on image 81 measures 5.9 cm. It previously measured 5 cm. There is no biliary or pancrea tic ductal dilatation. The enhancing mass within the pancreatic body is unchanged. This measures 5.5 x 4.8 cm. The spleen, adrenal glands and kidneys are unremarkable. There is no hydronephrosis. A cyst ic left adnexal lesion measuring 6.4 cm likely arises from the left ovary. There is no evidence for a bowel obstruction. The appendix is normal. Ulcerated rectosigmoid mass is again noted. Adjacent meta static implants have mildly progressed since CT of December 30, 2022. Gas and fluid containing collect ion at the site of tumor is noted. The fluid collection measures 6.3 x 5.9 cm. This is new since prio r exam. Rectal wall thickening with stranding is unchanged. The mass displaces the uterus, as before. No suspicious osseous lesions are present. There is a moderate amount stool within the colon. Major vasculature is patent. IMPRESSION: 1. Redemonstration of an ulcerated rectosigmoid mass consistent with malignancy. Interval development of gas and fluid containing collection at the site of tumor which favors a contained perforation wit h possible abscess formation. No bowel obstruction. Progression of adjacent metastatic implants. 2. Extensive hepatic metastases which have mildly increased since prior CT. 3. No change in the pancreatic body mass which remains indeterminate. 4. Moderate amount of stool within the colon. ACT 112: Negative or not required by law. Electronically signed by: Leonides Aiken M.D. 02/06/2023 5:25 PM
[2023-02-06] MEDS ORDERED: MoRPHine SULFATE 10 MG/ML CARP/VIAL IV STA (17:42)
[2023-02-06] MEDS ORDERED: SODIUM CHLORIDE 0.9% 500 ML IV ONE (17:42)
[2023-02-06 17:43] LABS: Appearance Urine Clear (Clear); Bilirubin Urine Negative (Negative); Blood Urine Negative (Negative); Color Urine Yellow; Glucose Urine UA Negative (Negative); Ketones Urine Trace (Negative); Leukocyte Esterase Urine Negative (Negative); Nitrite Urine Negative (Negative); Protein Urine Negative (Negative); Urobilinogen Urine Negative (Negative); pH Urine 6.5 (4.5-7.5)
[2023-02-06] MEDS ORDERED: metroNIDAZOLE 500 MG/100 ML BAG IV STA (18:26)
--- NOTE | 2023-02-06 18:46 | Surgery Consultation ---
Date of Consultation February 06, 2023 Assessment & Plan (1) Metastatic colon cancer in female: pt is a 62 year-old female who presents to ER with fever after radiation for treat rectosigmoid cancer. IMP: metastatic rectosigmoid cancer, contain abscess, pt is stable, base on H/P, labs and Ct scan finding- recommend to transfer higher level care colorectal surgeon for further diagnosis and treatment, D/W benefits, risks and alternatives of the transfer, pt and her daughter understood, they agreed with transfer, I answered all questions, D/W ER attending. History of Present Illness Reason for Consultation: rectal cancer Requesting Physician: Reese Lewis MD History of Present Illness CHIEF COMPLAINT: Fever HPI: Patient is a 62-year-old female with a past medical history of metastatic colon cancer is currently undergoing radiation ( start on 01/26/2023) that started this week. She was received radiation all week. She currently receiving it here. She notes that she is having lower back pain as well as fevers of 10 1-1 02 and abdominal pain. She does not think her abdominal pain got significantly worse. She denies any headache or change in vision. No cough or congestion. No runny nose or sore throat. No chest pain or shortness of breath. No dysuria urgency or frequency. No other exacerbating or remitting factors. She has not started chemotherapy yet. pt had port insertion last week. I ( Sacha Cornelius MD ) got a call for consult metastatic rectosigmoid cancer, I reviewed pt's H/P, labs and CT scan with pt. now T 36.9. no significant abdominal pain, [facility] colorectal surgeon saw pt last month. Allergies Allergy/AdvReac Type Severity Reaction Status Date / Time amoxicillin Allergy Severe FACE Verified 02/06/23 15:07 SWELLED bupropion Allergy Severe ANAPHYLAXIS Verified 02/06/23 15:07 Home Medications Medication Instructions Recorded Confirmed Type multivitamin 1 tab PO DAILY 12/30/22 02/06/23 History docusate sodium 100 mg capsule 100 mg PO DAILY PRN Constipation 01/25/23 02/06/23 History (Colace) lisinopril 10 mg tablet 10 mg PO DAILY 01/25/23 02/06/23 History ondansetron HCl 4 mg tablet 4 mg PO Q8H PRN Nausea 01/25/23 02/06/23 History sennosides 8.6 mg tablet 8.6 mg PO DAILY PRN Constipation 01/25/23 02/06/23 History (Evac-U-Gen (sennosides)) tramadol 50 mg tablet 50 mg PO Q6H PRN Pain 01/25/23 02/06/23 History acetaminophen 650 mg 650 mg PO Q12H PRN Pain 02/06/23 02/06/23 History tablet,extended release (Tylenol Arthritis Pain) Patient History Medical History (Updated 01/25/23 @ 09:09 by Kati Mercedes PA-C) Graves disease Metastatic colon cancer in female (01/01/23) No pertinent past medical history Surgical History (Updated 01/25/23 @ 08:22 by Faiza Lombardo, SUJEY) History of cervical cerclage History of liver biopsy 01/01/23 Hx of cataract surgery Bilateral Hx of colonoscopy 01/01/23 with biopsy of colon mass Previous section S/P fine needle aspiration Pancreas on 01/01/23 Family History (Updated 01/25/23 @ 08:25 by Faiza Lombardo, RN) Mother , 86yo Cervical cancer Hypertension Father , 86yo Diverticulitis CHF (congestive heart failure) Hypertension Brother No problems noted. Brother No problems noted. Brother No problems noted. Sister Hypertension Sister Hypertension Sister No problems noted. Daughter No problems noted. Daughter No problems noted. Social History (Updated 01/25/23 @ 08:27 by Faiza Lombardo, RN) Smoking Status: Current every day smoker Tobacco Type: Cigarettes Cigarettes Per Day: Less than 1 PPD x 25yrs; Hx Alcohol Use: No Hx Substance Use: No Preferred Language: Turkish Communication Ability: Effective Visual Impairment: No Limitations Hearing Ability: Normal Shale Processing Technician Required: No Beliefs That Will Affect Care: None marital status: / Current Living Situation Comment: Lives w/brother current occupational status: retired current occupation: Cooked at [employer] How many Children do You have: 2 Feels Safe at Home: Yes caffeine: Yes (3-4 cups/day) during the past year weight has: decreased > 10 lbs Review of Systems Constitutional: as per Subjective / HPI Respiratory: as per Subjective / HPI Cardiovascular: as per Subjective / HPI Gastrointestinal: 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 Genitourinary: as per Subjective / HPI Neurologic: as per Subjective / HPI Psychiatric: as per Subjective / HPI Endocrine: as per Subjective / HPI Hematologic / Lymphatic: as per Subjective / HPI Physical Exam Constitutional: WD/WN, vitals as above no distress Eyes: PERRL, conjunctivae normal, anicteric sclerae Neck: trachea midline, no thyromegaly Respiratory: normal respiratory effort, lungs clear to auscultation Cardiovascular: RRR, no murmur, no edema Gastrointestinal (Abdomen): soft, mild tenderness at LLQ , no rebound pain, no distend, BS +, Musculoskeletal: no cyanosis or clubbing, extremities motor strength 5/5 Neurologic: patellar DTR's 2+ bilat, sensation intact Psychiatric: A+Ox3, euthymic affect Results & Data Vital Signs (Past 12 Hours) Vital Signs Temp Pulse Pulse Resp BP BP Pulse Ox 02/06/23 18:00 83 14 168/102 H 95 02/06/23 17:21 82 20 159/88 H 95 02/06/23 17:25 84 18 97 02/06/23 17:21 36.9 C 85 19 159/88 H 95 02/06/23 16:00 90 15 149/60 H 94 02/06/23 15:45 93 H 20 159/82 H 94 02/06/23 15:30 92 H 18 165/72 H 93 02/06/23 15:15 93 H 21 161/70 H 94 02/06/23 15:09 93 H 154/81 H 02/06/23 15:50 89 02/06/23 15:09 97 H 19 154/81 H 95 02/06/23 14:39 166/77 H 02/06/23 13:36 36 C L 107 H 16 134/63 96 O2 Del Method 02/06/23 18:00 Room Air 02/06/23 17:21 Room Air 02/06/23 17:25 Room Air 02/06/23 17:21 02/06/23 16:00 02/06/23 15:45 02/06/23 15:30 02/06/23 15:15 02/06/23 15:09 02/06/23 15:50 02/06/23 15:09 Room Air 02/06/23 14:39 02/06/23 13:36 Room Air Laboratory Results Abnormal lab results 02/06/23 02/06/23 02/06/23 Range/Units 14:32 14:32 14:32 WBC 11.48 H (4.8-10.8) K/ul RBC 3.72 L (4.20-5.40) M/uL Hgb 8.5 L (12.0-16.0) g/dl Hct 27.5 L (37.0-47.0) % MCV 73.9 L (80.0-100.0) fL MCH 22.8 L (25.0-34.0) pg MCHC 30.9 L (32.0-36.0) g/dL RDW Std Deviation 59.4 H (36.4-46.3) fL RDW Coeff of Roberto Carlos 23.9 H (11.5-14.5) % Neut # (Auto) 10.66 H (1.40-6.50) K/uL Lymph # (Auto) 0.18 L (1.2-3.4) K/uL Immature Gran # (Auto) 0.23 H (0.01-0.20) K/uL Sodium 132 L (136-145) mmol/L Potassium 3.3 L (3.5-5.1) mmol/L Creatinine 0.54 L (0.6-1.2) mg/dl BUN/Creatinine Ratio 25.9 H (10-20) Glucose 102 H (70-99(Fasting)) mg/dl Lactate (0.4-2.0) mmol/L Direct Bilirubin 0.3 H (0-0.2) mg/dl AST 53 H (13-39) U/L Alkaline Phosphatase 493 H (34-104) U/L Troponin I High Sens 23.7 H (0-14) pg/ml Albumin 3.2 L (3.4-5.0) gm/dl Procalcitonin 1.84 H (0-0.5) ng/ml Urine Ketones (Negative) 02/06/23 02/06/23 02/06/23 Range/Units 14:46 17:20 17:57 WBC (4.8-10.8) K/ul RBC (4.20-5.40) M/uL Hgb (12.0-16.0) g/dl Hct (37.0-47.0) % MCV (80.0-100.0) fL MCH (25.0-34.0) pg MCHC (32.0-36.0) g/dL RDW Std Deviation (36.4-46.3) fL RDW Coeff of Roberto Carlos (11.5-14.5) % Neut # (Auto) (1.40-6.50) K/uL Lymph # (Auto) (1.2-3.4) K/uL Immature Gran # (Auto) (0.01-0.20) K/uL Sodium (136-145) mmol/L Potassium (3.5-5.1) mmol/L Creatinine (0.6-1.2) mg/dl BUN/Creatinine Ratio (10-20) Glucose (70-99(Fasting)) mg/dl Lactate 2.3 H* (0.4-2.0) mmol/L Direct Bilirubin (0-0.2) mg/dl AST (13-39) U/L Alkaline Phosphatase (34-104) U/L Troponin I High Sens 17.0 H D (0-14) pg/ml Albumin (3.4-5.0) gm/dl Procalcitonin (0-0.5) ng/ml Urine Ketones Trace H (Negative) Diagnostic Findings T OF THE ABDOMEN AND PELVIS WITH CONTRAST CLINICAL HISTORY: Abdominal pain and fever. Cancer. COMPARISON STUDY: CT of the abdomen and pelvis December 30, 2022. Treatment planning CT January 27, 2023. TECHNIQUE: Following IV administration of 83 mL of Optiray, axial images of the abdomen and pelvis were obtained from the lung bases to the proximal femurs. Images were reviewed in the axial, sagittal, and coronal planes. IV contrast was administered without complication. Automated exposure control was utilized for the study. A dose lowering technique was utilized adhering to the principles of ALARA. CT DOSE: 563.39 mGy.cm FINDINGS: A few small nodules within the lower lungs are unchanged since prior CT. Linear densities within the lower lungs favor atelectasis. No pneumatosis, free air or portal venous gas is present. Extensive hepatic metastases have mildly increased in size since CT of December 30, 2022. Index right hepatic dome lesion on axial image 44 of 471 measures 6.6 cm. It previously measured 5.9 cm. Lateral segment lesion on image 81 measures 5.9 cm. It previously measured 5 cm. There is no biliary or pancreatic ductal dilatation. The enhancing mass within the pancreatic body is unchanged. This measures 5.5 x 4.8 cm. The spleen, adrenal glands and kidneys are unremarkable. There is no hydronephrosis. A cystic left adnexal lesion measuring 6.4 cm likely arises from the left ovary. There is no evidence for a bowel obstruction. The appendix is normal. Ulcerated rectosigmoid mass is again noted. Adjacent metastatic implants have mildly progressed since CT of December 30, 2022. Gas and fluid containing collection at the site of tumor is noted. The fluid collection measures 6.3 x 5.9 cm. This is new since prior exam. Rectal wall thickening with stranding is unchanged. The mass displaces the uterus, as before. No suspicious osseous lesions are present. There is a moderate amount stool within the colon. Major vasculature is patent. IMPRESSION: 1. Redemonstration of an ulcerated rectosigmoid mass consistent with malignancy. Interval development of gas and fluid containing collection at the site of tumor which favors a contained perforation with possible abscess formation. No bowel obstruction. Progression of adjacent metastatic implants. 2. Extensive hepatic metastases which have mildly increased since prior CT. 3. No change in the pancreatic body mass which remains indeterminate. 4. Moderate amount of stool within the colon. ACT 112: Negative or not required by law.
--- NOTE | 2023-02-06 22:11 | History and Physical Report ---
DATE OF ADMISSION: 02/06/2023 CHIEF COMPLAINT: Fever, chills. HISTORY OF PRESENT ILLNESS: This is a 62-year-old female with past medical history significant for Grave's disease with orbitopathy, tobacco use, recent diagnosis of metastatic colon cancer in December of this year. The patient had a port last Wednesday and she had radiation treatment starting on last Wednesday until Wednesday. There is a plan for starting chemo on February. She is also getting IV iron infusions, last infusion was last Wednesday. The patient states she has been having some , on and off rectal bleeding.. She is getting iron infusions because of anemia. Today, after breakfast, she went to sleep and when she woke up, was having shaking chills, she never had this kind of chills before. She called her daughter and checked the temperature, it was high, so the patient came here. CT scan showing ulcerative sigmoid mass and also interval development of gas and fluid containing collection at the site of tumor, which favors a contained perforation, possible abscess formation. Surgery saw the patient and recommended transfer to tertiary care for a colorectal evaluation. ER called to [place] and was accepted by acute care surgery, Dr. Montilla, but currently beds are not available until tomorrow. The patient is currently hemodynamically stable, admitted to the hospital and while the patient awaiting transfer to [place], received cefepime and fluids and pain control and antiemetics. Currently resting comfortably, hemodynamically stable. Denies any headache. When she walks, she has some dizziness. No blurred visions, no double visions, no earache, no runny nose, no sore throat, no cough, no difficulty swallowing. Denies any chest pain or shortness of breath, no nausea. She has some abdominal pain in the left lower quadrant, but bearable and has some back pain. ALLERGIES: AMOXICILLIN, BUPROPION. PAST MEDICAL HISTORY: As mentioned above. PAST SURGICAL HISTORY: , colonoscopy, EGD with endoscopic ultrasound, a port MEDICATIONS: The patient is on Tylenol 650 mg p.o. b.i.d. p.r.n., Colace 100 mg p.o. daily p.r.n., lisinopril 10 mg p.o. daily, multivitamin 1 tablet p.o. daily, Zofran 4 mg p.o. q. 8 hours p.r.n., Senokot 8.6 mg p.o. daily p.r.n., tramadol 50 mg p.o. q. 6 hours p.r.n. FAMILY HISTORY: Significant for paternal grandfather had diabetes. Maternal grandmother had diabetes. Maternal grandfather had stroke. SOCIAL HISTORY: Smokes 1 pack a day for the last 26 years. No alcohol, no drug use. REVIEW OF SYSTEMS: As per HPI. Rest of the review of systems is negative. PHYSICAL EXAMINATION: GENERAL: The patient is of moderate build, not in acute distress. VITAL SIGNS: Temperature 36.9, pulse 83, respiratory rate 16, blood pressure 161/89, oxygen 92% on room air. HEENT: Pupils equal, round and reactive to light. Oral mucosa moist. NECK: No JVD or neck masses. CARDIOVASCULAR: S1 and S2 heard. Regular rate and rhythm. No murmur, no gallop. RESPIRATORY SYSTEM: Normal AP diameter. No accessory muscle use. No wheezing, no crackles. ABDOMEN: Soft, bowel sounds present. Tenderness in left lower quadrant region and mild guarding. No obvious distention. CENTRAL NERVOUS SYSTEM: Cranial nerves II through XII are grossly intact, nonfocal. EXTREMITIES: No edema, no erythema. LABORATORY DATA: WBC 11.4, hemoglobin 8.5, hematocrit 27.5, platelets 359. Sodium 132, potassium 3.3, chloride 99, CO2 33, BUN 14, creatinine 0.5, serum glucose 102. Lactate when she came in was 2.3, repeat is 1.8. Calcium 9.3, magnesium 1.8, total bilirubin 0.7, direct bilirubin 0.3, AST 53, ALT 20, alkaline phosphatase 193. Troponin I high sensitivity 17. Procalcitonin 1.8. Urinalysis negative. SARS-CoV-2 rapid test negative. IMAGING DATA: CT of abdomen and pelvis with contrast shows redemonstration of ulcerative rectosigmoid mass consistent with malignancy. Interval development of gas and fluid containing collection at the site of the tumor, which favors a contained perforation with possible abscess formation. No bowel obstruction, progression of her distant metastatic implants, extensive hepatic metastasis, which have mildly increased since prior CT. No change in the pancreatic body mass, indeterminate moderate amount of stool in the colon. Chest x-ray, no acute findings. Lower lung densities suggestive of atelectasis. EKG: Sinus tachycardia at a rate of 102, possible left atrial enlargement. ASSESSMENT AND PLAN: This 62-year-old female was recently diagnosed with metastatic colon cancer, started radiation last week, plan for chemo in February, presents with fever and chills and found to have perforation of rectal mass with contained perforation, possible abscess development. 1. Possible sepsis with fever at home, elevated lactic acid 2.3, elevated white count. Secondary to contained perforation of colon mass with possible abscess formation. Seen by Surgery and recommended transfer to tertiary care. The patient required transfer for a [facility] for colorectal evaluation, was accepted by [place], awaiting for bed. Received cefepime. The patient is allergic to AMOXICILLIN, we will place her on Cipro and Flagyl. IV fluids, n.p.o., IV drugs p.r.n., IV antiemetics. Monitor in the [employer]. 2. Hypokalemia. We will replace. 3. Mild elevation of troponin, mostly demand ischemia. We will follow the labs. 4. Anemia, hemoglobin 8.5, iron deficiency anemia from colon cancer. Getting iron transfusion. We will follow the labs. 5. History of hypertension: We will hold lisinopril for the planned procedure, place her on IV hydralazine p.r.n. 6. Deep venous thrombosis prophylaxis: Sequential compression devices for now. DISPOSITION: Monitor in the [employer] tele. Expect to transfer to [facility] when bed available. Level 1 full code. Job ID: [id number] MTDD
[2023-02-06] MEDS ORDERED: HYDROmorphone INJ 0.5 MG/0.5 ML SYR IV STA (22:17)
[2023-02-06] MEDS ORDERED: ACETAMINOPHEN 325 MG TAB PO PRN (23:54)
[2023-02-06] MEDS ORDERED: traMADol HCL 50 MG TABLET PO PRN (23:54)
[2023-02-06] MEDS ORDERED: hydrALAZINE HCL 20 MG/ML VIAL IV PRN (23:54)
[2023-02-06] MEDS ORDERED: NITROGLYCERIN SL 0.4 MG/TAB TAB SL PRN (23:54)
[2023-02-06] MEDS ORDERED: ONDANSETRON INJ 2 MG/ML 2 ML VIAL IV PRN (23:54)
[2023-02-07] MEDS: D5W AND NSS 1,000 ML IV SCH ×2 (00:51→16:45)
[2023-02-07] MEDS: HYDROmorphone INJ 0.5 MG/0.5 ML SYR IV PRN ×4 (03:54→17:55)
[2023-02-07 05:15] LABS: Basophils # (auto) 0.16 K/uL (0-0.2); Basophils % (auto) 1.4 %; Eosinophils # (auto) 0.02 K/uL (0-0.50); Eosinophils % (auto) 0.2 %; Hematocrit (blood only) 24.6 % (37.0-47.0); Hemoglobin 7.5 g/dl (12.0-16.0); Immature Granulocytes # (auto) 0.41 K/uL (0.01-0.20); Immature Granulocytes % (auto) 3.6 %; Lymphocytes % (auto) 4.4 %; Mean Corpuscular Hemoglobin 22.7 pg (25.0-34.0); Mean Corpuscular Hgb Conc 30.5 g/dL (32.0-36.0); Mean Corpuscular Volume 74.5 fL (80.0-100.0); Mean Platelet Volume 10.3 fL (9.4-12.4); Monocytes # (auto) 0.97 K/uL (0.11-0.59); Monocytes % (auto) 8.5 %; Neutrophils # (auto) 9.33 K/uL (1.40-6.50); Neutrophils % (auto) 81.9 %; Platelet Count 330 K/uL (130-400); RDW Coefficient of Variation 24.2 % (11.5-14.5); RDW Standard Deviation 61.8 fL (36.4-46.3); White Blood Count 11.39 K/ul (4.8-10.8)
[2023-02-07 05:24] LABS: Calcium 8.8 mg/dl (8.5-10.1); Creatinine Clr Calc Pharmacy 132.3 ml/min; Est GFR (African American) 120.2 ml/min; Est GFR (Non-African American) 103.7 ml/min; Potassium 3.4 mmol/L (3.5-5.1)
[2023-02-07 05:41] LABS: Hypochromasia Present
[2023-02-07] MEDS: metroNIDAZOLE 500 MG/100 ML BAG IV SCH ×2 (05:42→13:53)
--- NOTE | 2023-02-07 07:39 | Electrocardiogram Report ---
Test Reason : Blood Pressure : / mmHG Vent. Rate : 102 BPM Atrial Rate : 102 BPM P-R Int : 124 ms QRS Dur : 084 ms QT Int : 326 ms P-R-T Axes : 035 -08 034 degrees QTc Int : 424 ms Sinus tachycardia Possible Left atrial enlargement Left ventricular hypertrophy Poor R wave progression, consider anterior OK vs. lead placement vs. LVH possible Inferior infarct , age undetermined Abnormal ECG No previous ECGs available Confirmed by Ori Muhammad ([id number]) on 02/07/2023 7:39:03 AM Referred By: REFERRED SELF Confirmed By:Lukas Muhammad
[2023-02-07] MEDS ORDERED: CIPROFLOXACIN / D5W 400 MG/200 ML BAG IV SCH (08:00)
[2023-02-07] MEDS ORDERED: MULTIVITAMIN TAB PO SCH (09:00)
[2023-02-07] MEDS ORDERED: HYDROmorphone INJ 0.5 MG/0.5 ML SYR IV PRN (11:08)
[2023-02-07] MEDS: POTASSIUM CHLORIDE / WTR 10 MEQ/100 ML PLCT IV SCH ×2 (11:51→11:54)
--- NOTE | 2023-02-07 12:02 | Discharge Summary ---
Date of Service February 07, 2023 Admission HPI Per Admitting Provider This is a 62-year-old female with past medical history significant for Grave's disease with orbitopathy, tobacco use, recent diagnosis of metastatic colon cancer in December of this year. The patient had a port last Wednesday and she had radiation treatment starting on last Wednesday until Wednesday. There is a plan for starting chemo on February week. She is also getting IV iron infusions, last infusion was last Wednesday. The patient states she has been having some , on and off rectal bleeding.. She is getting iron infusions because of anemia. Today, after breakfast, she went to sleep and when she woke up, was having shaking chills, she never had this kind of chills before. She called her daughter and checked the temperature, it was high, so the patient came here. CT scan showing ulcerative sigmoid mass and also interval development of gas and fluid containing collection at the site of tumor, which favors a contained perforation, possible abscess formation. Surgery saw the patient and recommended transfer to tertiary care for a colorectal evaluation. ER called to [facility] and was accepted by acute care surgery, Dr. Montilla, but currently beds are not available until tomorrow. The patient is currently hemodynamically stable, admitted to the hospital and while the patient awaiting transfer to [facility], received cefepime and fluids and pain control and antiemetics. Currently resting comfortably, hemodynamically stable. Denies any headache. When she walks, she has some dizziness. No blurred visions, no double visions, no earache, no runny nose, no sore throat, no cough, no difficulty swallowing. Denies any chest pain or shortness of breath, no nausea. She has some abdominal pain in the left lower quadrant, but bearable and has some back pain. Admission Exam Per Admitting Provider GENERAL: The patient is of moderate build, not in acute distress. VITAL SIGNS: Temperature 36.9, pulse 83, respiratory rate 16, blood pressure 161/89, oxygen 92% on room air. HEENT: Pupils equal, round and reactive to light. Oral mucosa moist. NECK: No JVD or neck masses. CARDIOVASCULAR: S1 and S2 heard. Regular rate and rhythm. No murmur, no gallop. RESPIRATORY SYSTEM: Normal AP diameter. No accessory muscle use. No wheezing, no crackles. ABDOMEN: Soft, bowel sounds present. Tenderness in left lower quadrant region and mild guarding. No obvious distention. CENTRAL NERVOUS SYSTEM: Cranial nerves II through XII are grossly intact, nonfocal. EXTREMITIES: No edema, no erythema. Principal Diagnosis Sepsis Metastatic colon cancer with contained perforation of colonic mass with possible abscess formation Discharge Exam Constitutional: Alert orient x3; in mild distress due to pain. Respiratory: normal respiratory effort, lungs clear to auscultation, no wheeze, rales, rhonchi. Normal insp/exp effort, no accessory muscle use Cardiovascular: RRR, no murmur, no edema Vessels: no JVD or carotid bruit Chest: normal inspection of chest Abdomen: Tenderness present at left lower quadrant and mild guarding. No distention. Bowel sound present Musculoskeletal: no cyanosis or clubbing, extremities motor strength 5/5 Skin: no rashes, warm and dry normal turgor Neurologic: PERRL, EOMI, accommodation nl, no face palsy, no dysarthria CN's II- XI intact bilaterally and moves all extremities Psychiatric: A+Ox3, euthymic affect Lymphatic: no cervical or axillary lymphadenopathy : deferred Discharge Data Allergies Allergy/AdvReac Type Severity Reaction Status Date / Time amoxicillin Allergy Severe FACE Verified 02/06/23 15:07 SWELLED bupropion Allergy Severe ANAPHYLAXIS Verified 02/06/23 15:07 Ordered Studies 02/06/23 15:37 CT Abd and Pelvis [CT abd pelvis IV con only] Stat Hospital Course (1) Perforated bowel: (2) Abdominal abscess: (3) Sepsis: Plan Patient is a 62-year-old female with history of recent diagnosis of metastatic colon cancer. Patient recently underwent radiation treatment from February 01 or 2022. Patient presented to the hospital with fever and chills for [address] abdomen/Pelvis with iv contrast showed ulcerative sigmoid mass with interval development of gas and fluid collection at the site of tumor which favors contained perforation and possible abscess formation. Dr. Cornelius from surgery evaluated the patient and recommended transfer to tertiary care center for colorectal surgery evaluation. ED physician discussed the case [place] [facility] [place] for [place]. Pending transfer, patient was admitted to telemetry floor. She was started on ciprofloxacin and metronidazole. Reported history of penicillin allergy. During hospitalization, patient was hemodynamically stable, alert oriented x3 and was saturating well on room air. She was also given IV fluids, analgesics and was kept n.p.o. Total Time Total Time Spent Total Time Spent (In Minutes): 40 Total Time Includes: Examination of the Patient, Discharge Planning, Medication Reconciliation, Communication With Other Providers and Other Discharge Plan Discharge Items Patient Disposition: Transfer Acute Care Hospital Reason For Visit: FEVER Discharge Diagnosis: Sepsis Contained perforation of colonic mass with possible abscess formation. Activity: Resume your previous activity Non-emergency contact: Primary Care Provider Call non-emergency contact if: you have any medication questions and your symptoms worsen Follow-up/Referrals: Aquiles Perkins MD [Primary Care Provider] - Diet: Nothing by Mouth Addtl Attending Provider Instructions: Patient is a 62-year-old female with history of recent diagnosis of metastatic colon cancer. Patient recently underwent radiation treatment from February 01 or 2022. Patient presented to the hospital with fever and chills for [address] abdomen/Pelvis with iv contrast showed ulcerative sigmoid mass with interval development of gas and fluid collection at the site of tumor which favors contained perforation and possible abscess formation. Dr. Cornelius from surgery evaluated the patient and recommended transfer to tertiary [facility] center for colorectal surgery evaluation. ED physician discussed the case with [place] [facility] [place] for [place]. Pending transfer, patient was admitted to telemetry floor. She was started on ciprofloxacin and metronidazole. Reported history of penicillin allergy. During hospitalization, patient was hemodynamically stable, alert oriented x3 and was saturating well on room air. She was also given IV fluids, analgesics and was kept n.p.o. Addtl Keyboarding Teacher Provider Instructions: Date of Service: February 07, 2023 Current Inpatient Medications Acetaminophen (Acetaminophen 325 Mg Tab) 650 mg PO Q4H PRN PRN Reason: Pain or Fever Stop: 03/08/23 23:53 Hydralazine HCl (Hydralazine Hcl 20 Mg/Ml Vial) 5 mg IV Q6H PRN PRN Reason: Hypertension Stop: 03/08/23 23:53 Hydromorphone HCl (Hydromorphone Inj 0.5 Mg/0.5 Ml Syr) 0.5 mg IV Q2H PRN PRN Reason: Severe Pain (Scale 7, 8, 9,10) Stop: 02/20/23 23:53 Last Admin: 02/07/23 11:20 Dose: 0.5 mg Dextrose/Sodium Chloride (D5w And Nss) 1,000 mls @ 100 mls/hr IV .Q10H [facility] Stop: 03/08/23 23:53 Last Infusion: 02/07/23 11:07 Dose: Infused Metronidazole (Flagyl) 500 mg in 100 mls @ 100 mls/hr IV Q8H [facility] Stop: 02/17/23 05:59 Last Infusion: 02/07/23 07:05 Dose: Infused Ciprofloxacin (Cipro / D5w) 400 mg in 200 mls @ 100 mls/hr IV Q12H [facility]; Protocol Stop: 02/17/23 07:59 Last Infusion: 02/07/23 09:55 Dose: Infused Multivitamins (Multivitamin Tab) 1 tab PO DAILY [facility] Stop: 03/09/23 08:59 Last Admin: 02/07/23 07:43 Dose: Not Given Nitroglycerin (Nitroglycerin Sl 0.4 Mg/Tab Tab) 0.4 mg SL UD PRN PRN Reason: Chest Pain Stop: 03/08/23 23:53 Ondansetron HCl (Ondansetron Inj 2 Mg/Ml 2 Ml Vial) 4 mg IV Q6H PRN PRN Reason: Nausea Stop: 03/08/23 23:53 Tramadol HCl (Tramadol Hcl 50 Mg Tablet) 50 mg PO Q6H PRN PRN Reason: Pain Stop: 03/08/23 23:53 Pending Studies at Discharge: No Stand-Alone Forms: [facility] Skilled Items Patient informed of condition?: Yes DNR: No Discharge Level of Care: Other Communicable Disease: No Discharge Prognosis: Stable Lines: Peripheral IV Urinary Catheter: No Medications and DC Order Prescriptions: Continued tramadol 50 mg tablet 50 mg PO Q6H PRN (Reason: Pain) docusate sodium [Colace] 100 mg capsule 100 mg PO DAILY PRN (Reason: Constipation) lisinopril 10 mg tablet 10 mg PO DAILY sennosides [Evac-U-Gen (sennosides)] 8.6 mg tablet 8.6 mg PO DAILY PRN (Reason: Constipation) ondansetron HCl 4 mg tablet 4 mg PO Q8H PRN (Reason: Nausea) multivitamin Tablet 1 tab PO DAILY acetaminophen [Tylenol Arthritis Pain] 650 mg Tablet Extended Release 650 mg PO Q12H PRN (Reason: Pain) Discharge Orders: Discharge Order (Routine); Ordered 02/07/23 Ordered By: Franklin Gomez Admission Data Admit Date/Time: 02/06/23 20:20 Attending Provider: Franklin Gomez Admit Provider: Porfirio Connors Primary Care Provider: Aquiles Perkins
[2023-02-07] MEDS ORDERED: MoRPHine SULFATE 4 MG/ML 1 ML CARP\\VIAL IV PRN (13:06)
[2023-02-07] MEDS ORDERED: ACETAMINOPHEN 1,000 MG/100 ML VIAL IV STA (14:54)
[2023-02-07] MEDS ORDERED: MEROPENEM 500 MG in SYRINGE 0 ML IV SCH (15:00)
[2023-02-07] MEDS ORDERED: MEROPENEM 1,000 MG in SYRINGE 0 ML IV SCH ×2 (15:00→16:00)
--- NOTE | 2023-02-07 15:23 | XRay Report ---
KUB HISTORY: Diffuse abdominal pain, perforation COMPARISON: Abdomen and pelvis CT 02/06/2023. FINDINGS: There is again noted an irregular collection of gas within the deep pelvis measuring approx imate 4.2 cm. This likely corresponds to the previously described contained perforation at the rectos igmoid mass. Moderate fecal retention again noted. Nondilated gas-filled loops of small bowel to the left side the abdomen. No evidence for bowel obstruction. The bladder is decompressed. No renal calc lanny. No ureteral calculi. No pneumoperitoneum or pneumatosis. IMPRESSION: 1. An irregular collection of gas within the deep pelvis is again noted and likely corresponds to the previously described contained perforation of the rectosigmoid mass. This is better appreciated on t he recent abdomen and pelvis CT. 2. Moderate fecal retention, unchanged. ACT 112: Negative or not required by law. Electronically signed by: Louis Mak M.D. 02/07/2023 3:21 PM
--- NOTE | 2023-02-07 16:04 | Surgery Progress Note ---
Date of Service February 07, 2023 Assessment & Plan (1) Metastatic colon cancer in female: Plan: pt is a 62 year-old female who presents to ER with fever after radiation for treat rectosigmoid cancer. IMP: metastatic rectosigmoid cancer, contain abscess, pt is stable, base on H/P, labs and Ct scan finding- recommend to transfer higher level care colorectal surgeon for further diagnosis and treatment, D/W benefits, risks and alternatives of the transfer, pt and her daughter understood, they agreed with transfer, I answered all questions, D/W ER attending. 02/07/2023 4:06 PM F/U metastatic rectosigmoid cancer, contain abscess, pt is stable, pt will be transferred to [facility] at 5-5:30 Pm today, pt and her family members understood, I answered all questions, Admission and Anticipated Discharge Date Admission Date: February 06, 2023 Subjective F/U metastatic rectosigmoid cancer with abscess pt is stable, still have lower abdominal pain, no nausea, no vomiting, pt will be transfer to [facility] at 5 PM today, Review of Systems Constitutional: as per Subjective / HPI Respiratory: as per Subjective / HPI Cardiovascular: as per Subjective / HPI Gastrointestinal: 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 Genitourinary: as per Subjective / HPI Neurologic: as per Subjective / HPI Psychiatric: as per Subjective / HPI Endocrine: as per Subjective / HPI Hematologic / Lymphatic: as per Subjective / HPI Physical Exam Constitutional: WD/WN, vitals as above Eyes: PERRL, conjunctivae normal, anicteric sclerae Neck: trachea midline, no thyromegaly Respiratory: normal respiratory effort, lungs clear to auscultation Cardiovascular: RRR, no murmur, no edema Gastrointestinal (Abdomen): soft, mild tenderness at low abdomen, no rebound pain, no distend, BS +, Musculoskeletal: no cyanosis or clubbing, extremities motor strength 5/5 Neurologic: patellar DTR's 2+ bilat, sensation intact Psychiatric: A+Ox3, euthymic affect Results & Data Vital Signs (Past 12 Hours) Vital Signs Temp Pulse Pulse Pulse Resp BP BP 02/07/23 14:50 38.7 C H 83 83 18 155/79 H 02/07/23 12:19 36.7 C 73 16 146/78 H 03/19/23 08:03 36.7 C 74 18 158/72 H 158/72 H 02/07/23 07:33 36.7 C 78 15 158/74 H 02/07/23 07:32 71 Pulse Ox O2 Del Method 02/07/23 14:50 93 Room Air 02/07/23 12:19 94 Room Air 02/07/23 08:03 96 Room Air 02/07/23 07:33 96 Room Air 02/07/23 07:32 Laboratory Results Abnormal lab results 02/06/23 02/06/23 02/07/23 Range/Units 17:20 17:57 04:35 WBC 11.39 H (4.8-10.8) K/ul RBC 3.30 L (4.20-5.40) M/uL Hgb 7.5 L (12.0-16.0) g/dl Hct 24.6 L (37.0-47.0) % MCV 74.5 L (80.0-100.0) fL MCH 22.7 L (25.0-34.0) pg MCHC 30.5 L (32.0-36.0) g/dL RDW Std Deviation 61.8 H (36.4-46.3) fL RDW Coeff of Roberto Carlos 24.2 H (11.5-14.5) % Neut # (Auto) 9.33 H (1.40-6.50) K/uL Lymph # (Auto) 0.50 L (1.2-3.4) K/uL [place] # (Auto) 0.97 H (0.11-0.59) K/uL Immature Gran # (Auto) 0.41 H (0.01-0.20) K/uL Potassium (3.5-5.1) mmol/L Creatinine (0.6-1.2) mg/dl BUN/Creatinine Ratio (10-20) Glucose (70-99(Fasting)) mg/dl Lactate (0.4-2.0) mmol/L Troponin I High Sens 17.0 H D (0-14) pg/ml Urine Ketones Trace H (Negative) 02/07/23 02/07/23 Range/Units 04:35 15:03 WBC (4.8-10.8) K/ul RBC (4.20-5.40) M/uL Hgb (12.0-16.0) g/dl Hct (37.0-47.0) % MCV (80.0-100.0) fL MCH (25.0-34.0) pg MCHC (32.0-36.0) g/dL RDW Std Deviation (36.4-46.3) fL RDW Coeff of Roberto Carlos (11.5-14.5) % Neut # (Auto) (1.40-6.50) K/uL Lymph # (Auto) (1.2-3.4) K/uL [place] # (Auto) (0.11-0.59) K/uL Immature Gran # (Auto) (0.01-0.20) K/uL Potassium 3.4 L (3.5-5.1) mmol/L Creatinine 0.50 L (0.6-1.2) mg/dl BUN/Creatinine Ratio 24.0 H (10-20) Glucose 127 H (70-99(Fasting)) mg/dl Lactate 2.2 H* (0.4-2.0) mmol/L Troponin I High Sens (0-14) pg/ml Urine Ketones (Negative)
[2023-02-09 00:17] LABS: A calco-baum cmplx NotReported Not Detected (NotDetected); Bact fragilis Not Reported Not Detected (NotDetected); C auris Not Reported Not Detected (NotDetected); Calbicans Not Reported Not Detected (NotDetected); Candida glabrata Not Reported Not Detected (NotDetected); Candida krusei Not Reported Not Detected (NotDetected); Cneoformans/gatti Not Reported Not Detected (NotDetected); Cparapsilosis Not Reported Not Detected (NotDetected); Ctropicalis Not Reported Not Detected (NotDetected); E cloacae compx Not Reported Not Detected (NotDetected); Efaecalis Not Reported Not Detected (NotDetected); Efaecium Not Reported Not Detected (NotDetected); Enterobacterales Not Reported Not Detected (NotDetected); Escherichia coli Not Reported Not Detected (NotDetected); H influenzae Not Reported Not Detected (NotDetected); K aerogenes Not Reported Not Detected (NotDetected); Koxytoca Not Reported Not Detected (NotDetected); Kpneumoniae grp Not Reported Not Detected (NotDetected); Lmonocyt Not Reported Not Detected (NotDetected); N meningitidis Not Reported Not Detected (NotDetected); P aeruginosa Not Reported Not Detected (NotDetected); Proteus spp Not Reported Not Detected (NotDetected); Salmonella spp Not Reported Not Detected (NotDetected); Smarcescens Not Reported Not Detected (NotDetected); Staph lugdunensis Not Reported Not Detected (NotDetected); Staph spp. Not Reported Not Detected (NotDetected); Staphaureus Not Reported Not Detected (NotDetected); Staphepi Not Reported Not Detected (NotDetected); Stenmaltophilia Not Reported Not Detected (NotDetected); Strep agal(GrpB) Not Reported Not Detected (NotDetected); Strep pneum Not Reported Not Detected (NotDetected); Strep pyog (GrpA) Not Reported Not Detected (NotDetected); Strep spp Not Reported Not Detected (NotDetected)
== END 2023-02-07 18:00 | disposition short-term general hospital (02) | DRG 871 ==
LOC: ED 13:29 → 2N 20:20 → SUATTDRO 20:20 → 2N 22:56

== ENCOUNTER 2023-03-09 02:00 | Inpatient (IN) ==
[2023-03-09 02:45] LABS: Hematocrit (blood only) 29.7 % (37.0-47.0); Hemoglobin 9.1 g/dl (12.0-16.0); Mean Corpuscular Hemoglobin 25.8 pg (25.0-34.0); Mean Corpuscular Hgb Conc 30.6 g/dL (32.0-36.0); Mean Corpuscular Volume 84.1 fL (80.0-100.0); Mean Platelet Volume 9.3 fL (9.4-12.4); Platelet Count 373 K/uL (130-400); Red Blood Count 3.53 M/uL (4.20-5.40); White Blood Count 19.52 K/ul (4.8-10.8)
[2023-03-09 02:51] LABS: Albumin Globulin Ratio 0.7 (0.9-2); Albumin Level 2.5 gm/dl (3.4-5.0); BUN Creatinine Ratio 25.6 (10-20); Bilirubin,Total 0.8 mg/dl (0.2-1.0); Calcium 8.7 mg/dl (8.6-10.3); Creatinine Clr Calc Pharmacy 181.1 ml/min; Est GFR (African American) 130.5 ml/min; Est GFR (Non-African American) 112.6 ml/min; Globulin 3.6 gm/dl (2.5-4.0); Potassium 3.6 mmol/L (3.5-5.1); Total Protein 6.1 gm/dl (6.0-8.3)
[2023-03-09 03:09] LABS: Basophils # (auto) 0.06 K/uL (0-0.2); Basophils % (auto) 0.3 %; Eosinophils # (auto) 0.01 K/uL (0-0.50); Eosinophils % (auto) 0.1 %; Hypochromasia Present; Immature Granulocytes # (auto) 0.16 K/uL (0.01-0.20); Immature Granulocytes % (auto) 0.8 %; Lymphocytes # (auto) 0.46 K/uL (1.2-3.4); Lymphocytes % (auto) 2.4 %; Monocytes # (auto) 1.02 K/uL (0.11-0.59); Monocytes % (auto) 5.2 %; Neutrophils # (auto) 17.81 K/uL (1.40-6.50); Neutrophils % (auto) 91.2 %; Poikilocytosis Present; Polychromasia 1+
[2023-03-09] MEDS ORDERED: SODIUM CHLORIDE 0.9% 1000ML 2,000 ML IV ONE (03:30)
--- NOTE | 2023-03-09 03:38 | Emergency Department Note ---
History of Present Illness General Chief complaint: Fall Stated complaint: FALL EARLIER TODAY, LEG WEAKNESS Time Seen by Provider: 03/09/23 03:30 History of Present Illness 62-year-old female presents emergency department she is status post colon resection she has colon cancer as a colostomy a port and she has a abscess drain in her abdomen. Patient has been on Cipro and Flagyl today she felt extremely weak had a near syncopal episode. Patient states that she fell she did not hit her head. There is no loss of consciousness. Patient states that she is generally weak currently. Patient denies fever cough cold congestion. Patient denies specific abdominal pain however she has been taking oxycodone. And she also states that she has been taking Soma. Home Medications Medication Instructions Recorded Confirmed Type multivitamin 1 tab PO DAILY 12/30/22 03/01/23 History docusate sodium 100 mg capsule 100 mg PO AMHS 01/25/23 03/01/23 History (Colace) lisinopril 10 mg tablet 10 mg PO DAILY 01/25/23 03/01/23 History ondansetron HCl 4 mg tablet 4 - 8 mg PO Q8H PRN Nausea 01/25/23 03/01/23 History tramadol 50 mg tablet 50 mg PO Q6H PRN Pain 01/25/23 03/01/23 History acetaminophen 500 mg tablet 1,000 mg PO Q8 03/01/23 03/01/23 History carisoprodol 350 mg tablet 350 mg PO Q8 PRN Muscle Spasm 03/01/23 03/01/23 History nystatin 100,000 unit/mL oral 5 ml PO TID 03/01/23 03/01/23 History suspension oxycodone 10 mg tablet 10 mg PO Q6H PRN severe incisional 03/01/23 03/01/23 History pain prochlorperazine maleate 10 mg 10 mg PO Q6 PRN Nausea 03/01/23 03/01/23 History tablet Allergies Allergy/AdvReac Type Severity Reaction Status Date / Time amoxicillin Allergy Severe FACE Verified 02/06/23 15:07 SWELLED bupropion Allergy Severe ANAPHYLAXIS Verified 02/06/23 15:07 Past Med/Surg History Medical History Graves disease Metastatic colon cancer in female (01/01/23) No pertinent past medical history Surgical History History of cervical cerclage History of liver biopsy 01/01/23 Hx of cataract surgery Bilateral Hx of colonoscopy 01/01/23 with biopsy of colon mass Previous section S/P fine needle aspiration Pancreas on 01/01/23 Family History Mother , 86yo Cervical cancer Hypertension Father , 86yo Diverticulitis CHF (congestive heart failure) Hypertension Brother No problems noted. Brother No problems noted. Brother No problems noted. Sister Hypertension Sister Hypertension Sister No problems noted. Daughter No problems noted. Daughter No problems noted. 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 How many Children do You have: 2 Feels Safe at Home: Yes caffeine: Yes (3-4 cups/day) during the past year weight has: decreased > 10 lbs Assistive Devices: Denture - Upper and Glasses Review of Systems A total of 10 systems reviewed and were otherwise negative Constitutional: + malaise and + weakness; no fever Respiratory: no cough Cardiovascular: no chest pain Physical Exam Vital Signs Vital Signs - 24 hr 03/09/23 02:17 03/09/23 03:03 03/09/23 02:30 Temperature Source Oral Pulse Rate 99 H 95 H Pulse Rate [Right Finger] 117 H Respiratory Rate 16 29 H 15 Respiratory Effort / Characteristics Non-Labored Spontaneous Respiratory Depth Normal Normal Respiratory Pattern Regular Blood Pressure 119/73 136/73 Blood Pressure [Right Arm] 154/107 H Blood Pressure Mean 88 94 Blood Pressure Mean [Right Arm] 122 Pulse Oximetry 94 93 89 L Oxygen Delivery Method Room Air Nasal Cannula Nasal Cannula Oxygen Flow Rate 1 Sepsis Recent Fever Within 48 Hours No Sepsis New/Unexplained Change in Mental Status N/A Sepsis Action Taken by Nursing No Action Required 03/09/23 02:10 Temperature Source Pulse Rate 100 H Pulse Rate [Right Finger] Respiratory Rate Respiratory Effort / Characteristics Respiratory Depth Respiratory Pattern Blood Pressure Blood Pressure [Right Arm] Blood Pressure Mean Blood Pressure Mean [Right Arm] Pulse Oximetry Oxygen Delivery Method Oxygen Flow Rate Sepsis Recent Fever Within 48 Hours Sepsis New/Unexplained Change in Mental Status Sepsis Action Taken by Nursing GENERAL: Patient is awake alert in no acute distress patient is resting comfortably and showing no signs of anxiety EYES: The conjunctivae are clear. The pupils are round and reactive. EARS, NOSE, MOUTH AND THROAT: The nose is without any evidence of any deformity. Mucous membranes are moist. Tongue is midline. NECK: The neck is nontender and supple. RESPIRATORY: Normal respiratory effort is noted there is no evidence of wheezing rhonchi or rales CARDIOVASCULAR: Regular rate and rhythm noted there no murmurs rubs or gallops normal S1 normal S2. Patient has a port in the right chest GASTROINTESTINAL: The abdomen is soft. Abdomen is nontender. Patient has a colostomy present, has a abscess drain present in the lower abdomen as well BACK: No midline tenderness or or step-off noted range of motion in flexion extension as well as rotation no signs of muscle spasm noted MUSCULOSKELETAL/EXTREMITIES: There is no evidence of gross deformity full range of motion is noted in the hips and shoulders. SKIN: There is no obvious evidence of any rash. There are no petechiae, pallor or cyanosis noted. NEUROLOGIC: Patient is awake alert and oriented x3 strength is symmetric Course Reevaluation(s) Reevaluation #1: Patient was started on IV fluids, IV antibiotics patient was given a fluid bolus of 2000 mL Time: 05:18 Consultations Consultation #1: Case was discussed with the [facility] hospitalist for admission Time: 05:18 Administered Medications Sodium Chloride (Nss 1000ml) 2,000 mls @ 999 mls/hr IV .Q2H1M ONE Stop: 03/09/23 05:30 Last Admin: 03/09/23 03:45 Dose: 999 mls/hr Documented By: DML Discontinued Medications Ceftriaxone Sodium (Rocephin) 2,000 mg in 70 mls @ 140 mls/hr IV NOW STA Stop: 03/09/23 05:06 Last Admin: 03/09/23 05:04 Dose: 140 mls/hr Documented By: GAMA Oxycodone/Acetaminophen (Oxycodone/Acetaminophen 10-325 Tab) 1 tab PO NOW STA Stop: 03/09/23 04:08 Last Admin: 03/09/23 04:11 Dose: 1 tab Documented By: GAMA Medical Decision Making Medical Records Attestation: I reviewed the patient's medical records. Home Medications Current Medication List: was personally reviewed by al Laboratory Data Attestation: I reviewed the patient's lab results. Leukocytosis as interpreted by me 03/09/23 02:20 03/09/23 02:20 Lab Results 03/09/23 03/09/23 03/09/23 Range/Units 02:20 02:20 02:20 WBC 19.52 H (4.8-10.8) K/ul RBC 3.53 L (4.20-5.40) M/uL Hgb 9.1 L (12.0-16.0) g/dl Hct 29.7 L (37.0-47.0) % MCV 84.1 (80.0-100.0) fL MCH 25.8 (25.0-34.0) pg MCHC 30.6 L (32.0-36.0) g/dL Plt Count 373 (130-400) K/uL MPV 9.3 L (9.4-12.4) fL Immature Gran % (Auto) 0.8 % Neut % (Auto) 91.2 % Lymph % (Auto) 2.4 % [place] % (Auto) 5.2 % Eos % (Auto) 0.1 % Baso % (Auto) 0.3 % Neut # (Auto) 17.81 H (1.40-6.50) K/uL Lymph # (Auto) 0.46 L (1.2-3.4) K/uL [place] # (Auto) 1.02 H (0.11-0.59) K/uL Eos # (Auto) 0.01 (0-0.50) K/uL Baso # (Auto) 0.06 (0-0.2) K/uL Immature Gran # (Auto) 0.16 (0.01-0.20) K/uL Polychromasia 1+ Hypochromasia Present Poikilocytosis Present Sodium 132 L (136-145) mmol/L Potassium 3.6 (3.5-5.1) mmol/L Chloride 100 (98-107) mmol/L Carbon Dioxide 23 (21-32) mmol/L Anion Gap 9 (3-11) BUN 10 (6-23) mg/dl Creatinine 0.39 L (0.6-1.2) mg/dl Est Cr Clr Drug Dosing 181.1 ml/min Est GFR ( Amer) 130.5 ml/min Est GFR (Non-Af Amer) 112.6 ml/min BUN/Creatinine Ratio 25.6 H (10-20) Glucose 126 H (70-99(Fasting)) mg/dl Lactate 3.1 H* (0.4-2.0) mmol/L Calcium 8.7 (8.6-10.3) mg/dl Total Bilirubin 0.8 (0.2-1.0) mg/dl AST 49 H (13-39) U/L ALT 13 (7-52) U/L Alkaline Phosphatase 1218 H (34-104) U/L Total Protein 6.1 (6.0-8.3) gm/dl Albumin 2.5 L (3.4-5.0) gm/dl Globulin 3.6 (2.5-4.0) gm/dl Albumin/Globulin Ratio 0.7 L (0.9-2) SARS-CoV-2, RNA, NAAT (NEGATIVE) 03/09/23 03/09/23 Range/Units 03:36 04:19 WBC (4.8-10.8) K/ul RBC (4.20-5.40) M/uL Hgb (12.0-16.0) g/dl Hct (37.0-47.0) % MCV (80.0-100.0) fL MCH (25.0-34.0) pg MCHC (32.0-36.0) g/dL Plt Count (130-400) K/uL MPV (9.4-12.4) fL Immature Gran % (Auto) % Neut % (Auto) % Lymph % (Auto) % [place] % (Auto) % Eos % (Auto) % Baso % (Auto) % Neut # (Auto) (1.40-6.50) K/uL Lymph # (Auto) (1.2-3.4) K/uL [place] # (Auto) (0.11-0.59) K/uL Eos # (Auto) (0-0.50) K/uL Baso # (Auto) (0-0.2) K/uL Immature Gran # (Auto) (0.01-0.20) K/uL Polychromasia Hypochromasia Poikilocytosis Sodium (136-145) mmol/L Potassium (3.5-5.1) mmol/L Chloride (98-107) mmol/L Carbon Dioxide (21-32) mmol/L Anion Gap (3-11) BUN (6-23) mg/dl Creatinine (0.6-1.2) mg/dl Est Cr Clr Drug Dosing ml/min Est GFR ( Amer) ml/min Est GFR (Non-Af Amer) ml/min BUN/Creatinine Ratio (10-20) Glucose (70-99(Fasting)) mg/dl Lactate 3.0 H* (0.4-2.0) mmol/L Calcium (8.6-10.3) mg/dl Total Bilirubin (0.2-1.0) mg/dl AST (13-39) U/L ALT (7-52) U/L Alkaline Phosphatase (34-104) U/L Total Protein (6.0-8.3) gm/dl Albumin (3.4-5.0) gm/dl Globulin (2.5-4.0) gm/dl Albumin/Globulin Ratio (0.9-2) SARS-CoV-2, RNA, NAAT NEGATIVE (NEGATIVE) [facility] Narrative Medical decision making differential diagnosis includes sepsis, urinary tract infection, electrolyte abnormality, dehydration Plan is to check sepsis labs Prior medical records were reviewed by me Patient was given a fluid bolus, patient's MAP was greater than 65, patient was started on empiric antibiotics. Patient at the time of admission at 5:15 AM is not in septic shock The case was discussed with the [facility] hospitalist for admission Impression & Plan Sepsis, Weakness Discharge Plan Visit Data Chief Complaint: Fall Stated Complaint: FALL EARLIER TODAY, LEG WEAKNESS ED Provider: Sundar Brown Discharge Problem: Sepsis, Weakness Patient Disposition: Admitted As Inpatient Forms Stand Alone Forms: My [facility] [place] Prescriptions Prescriptions: No Action tramadol 50 mg tablet 50 mg PO Q6H PRN (Reason: Pain) docusate sodium [Colace] 100 mg capsule 100 mg PO AMHS Rx Instructions: may discontinue if colostomy output is high or liquid lisinopril 10 mg tablet 10 mg PO DAILY ondansetron HCl 4 mg tablet 4 - 8 mg PO Q8H PRN (Reason: Nausea) multivitamin Tablet 1 tab PO DAILY prochlorperazine maleate 10 mg tablet 10 mg PO Q6 PRN (Reason: Nausea) carisoprodol 350 mg tablet 350 mg PO Q8 PRN (Reason: Muscle Spasm) Rx Instructions: ordered 02/25/23 take for 5 days nystatin 100,000 unit/mL suspension 5 ml PO TID Rx Instructions: 02/26/23 swish and spit for 14 days oxycodone 10 mg Tablet 10 mg PO Q6H PRN (Reason: severe incisional pain) acetaminophen 500 mg tablet 1,000 mg PO Q8 MDD 3g Rx Instructions: ordered 03/01/23 for 3 days, then 1 capsule every 4 hours as needed for pain Referrals Referrals: Aquiles Perkins MD [Primary Care Provider] -
[2023-03-09] MEDS ORDERED: oxyCODONE/ACETAMINOPHEN 10-325 TAB PO STA (04:07)
[2023-03-09] MEDS ORDERED: cefTRIAXone SODIUM 2,000 MG/70 ML BAG IV STA (04:37)
--- NOTE | 2023-03-09 10:51 | Electrocardiogram Report ---
Test Reason : Blood Pressure : / mmHG Vent. Rate : 096 BPM Atrial Rate : 096 BPM P-R Int : 134 ms QRS Dur : 082 ms QT Int : 362 ms P-R-T Axes : 025 -09 009 degrees QTc Int : 457 ms Normal sinus rhythm Minimal voltage criteria for LVH, may be normal variant possible Inferior infarct (cited on or before 06-FEB-2023) Abnormal ECG When compared with ECG of 06-FEB-2023 14:09, No significant change was found Confirmed by Ori Muhammad ([id number]) on 03/09/2023 10:51:12 AM Referred By: REFERRED SELF Confirmed By:Lukas Muhammad
[2023-03-09] MEDS ORDERED: HYDROmorphone INJ 0.5 MG/0.5 ML SYR IV STA (10:54)
[2023-03-09] MEDS ORDERED: LACTATED RINGER'S 1,000 ML IV SCH (11:00)
[2023-03-09] MEDS ORDERED: OPTIRAY 320 500ml IV ONE (12:01)
--- NOTE | 2023-03-09 12:08 | CT Scan Report ---
CT head/brain wo con CLINICAL HISTORY: fall Technique: Contiguous axial CT images of the head were acquired from the base of the skull to the michael khris without intravenous contrast administration. Images were viewed in brain, subdural and [facility]. Automated dose lowering techniques and/or adjustment according to patient size were utilized for this exam. Comparison: None available at the time of this dictation. Findings: The ventricles, basal cisterns, and cerebral sulci are normal. There is no acute intracranial hemorrh age or evidence of acute territorial infarction. Neither mass effect, shift of the midline structures , nor abnormal extra-axial fluid collections are shown. Imaged portions of the paranasal sinuses and mastoid air cells are clear. The orbits appear normal. There are no acute fractures of the calvaria or scalp swelling. Impression: No acute intracranial hemorrhage, no evidence of acute territorial infarction or other acute intracra nial disease process. ACT 112: Negative or not required by law. Electronically signed by: Armond Reyes M.D. 03/09/2023 12:06 PM
--- NOTE | 2023-03-09 12:12 | History & Physical Report ---
Date of Service March 09, 2023 Assessment & Plan (1) Fall: (2) Generalized weakness: (3) Metastatic colon cancer in female: Plan This is a 62-year-old female who has significant past medical history of stage IV colon cancer with mets to the liver who presents to ED secondary to generalized weakness and fall x2. Patient with recent hospitalization at [facility] 02/07-02/25 secondary to sigmoid colon mass, contained perforation and development of a pelvic abscess. She required IR drainage of abscess and eventual creation of colostomy for bowel function. She was seen and evaluated by infectious disease and antibiotics were de- escalated to Cipro and Flagyl for 21 days, to complete on 03/26/2023. She returns to hospital today due to generalized weakness, and fall x2. In ED patient is hemodynamically stable. She does have a significant leukocytosis. Since discharge from hospital patient reports a significant amount of abdominal pain after running out of oxycodone from hospital stay. She has established with [facility] palliative medicine and goal is pain control and bowel function. Plan is to trial chemotherapy once infection resolves. She was started on pain regimen. Fall Generalized weakness Stage IV colon cancer Recent bowel perforation secondary to colon cancer Pelvic abscesses Ostomy status Hypoxia/Pneumonitis/PE Comfort measures only status Patient was initially admitted to telemetry with IV antibiotics and general surgery consult CT abd/pelvis: . Redemonstration of an ulcerated rectosigmoid mass consistent with malignancy and an associated 7.8 x 6.9 cm fluid and gas containing collection at site of tumor which favors a contained perforation with abscess formation. Interval development of a contiguous left adnexal gas and fluid containing collection measuring 8.6 x 7.2 cm suggestive of an additional abscess which surrounds a left adnexal cystic lesion. 2. No bowel obstruction. Status post right-sided colostomy. 3. Progression of metastatic disease, including increase in hepatic metastases and peritoneal implants. Redemonstration of multiple implants adjacent to the primary tumor and pelvic lymphadenopathy. 4. Moderate gallbladder distention. Small amount of perihepatic and pericholecystic fluid. If suspicion for acute cholecystitis, a nuclear medicine hepatobiliary scan could be obtained. 5. Anasarca. 6. Airspace opacities within the lungs which may reflect an infectious process. Attending further discussed with patient underlying prognosis and patient wished to not be transferred and to be comfort measures only. She does not want to pursue any further treatment, antibiotics or IV fluids and wishes to remain comfortable. We will proceed with wishes and stop antibiotics, consult palliative care No labs, IVs etc. DNR/DNI DVT ppx: none 2/2 comfort status DNR/DNI Dispo: merrick duarte PCP: Aquiles Perkins A total of 120 minutes was spent with greater than 50% of that time personally viewing all current laboratory work and diagnostic imaging studies obtained in the ED. Additionally, I was able to view the patients past medication reconciliation and history with direct visualization in the patients chart. Included in the time above, a portion of that time was spent assessing the patient while discussing and collaborating with specialists, if necessary, and making medical decision making on treatment plan. All of the above was col laborated with . Please see addendum for further details. History of Present Illness Chief Complaint: Fall and weakness x 1 day. Primary Care Provider: Aquiles Perkins MD This is a 62-year-old female who has significant past medical history of stage IV colon cancer with mets to the liver who presents to ED secondary to generalized weakness and fall x2. Of significance patient was recently admitted to [facility] [place] [place] from 02/07 to 02/25 secondary to bowel perforation. CT scan demonstrated ulcerated rectosigmoid mass consistent with malignancy, gas and fluid containing collection at site of tumor due to possible perforation versus abscess. She was initially treated conservatively with n.p.o., IV fluid and started on IV Cipro and Flagyl. She subsequently had reassuring serial abdominal examinations however with a worsening lactic acidosis infectious disease was consulted and antibiotics were transitioned to cefepime and Flagyl. Repeat CT demonstrated likely contained perforation without evidence of free air. Again CT was repeated on 02/15 which revealed a pelvic fluid collection and ultimately IR was consulted for drainage. On 02/19 patient underwent diagnostic laparoscopy and a creation of a transverse loop colostomy to promote bowel habits. Her antibiotics were de-escalated to Cipro and Flagyl which is to continue until 03/26. She was discharged from [facility] on 02/25/2023. She lives at home with her brother. She had been transitioning well with the colostomy and had been taking medications as prescribed. She recently followed up with palliative medicine due to abdominal pain and running out of her oxycodone. She was seen by palliative medicine who started her on MS Contin, as needed oxycodone and baclofen. She has not yet started these. Yesterday evening patient sustained a fall where her legs gave out, fell to her knees and her head hit the ground. Overnight she was trying to go to the bathroom and when she was walking out her legs again gave out and she fell on her side. This time patient was unable to get up and daughter had to assist her. Patient was brought to ER due to recurrent falls. She continues to have abdominal pain. She feels her ostomy is functioning appropriately. Currently she has an ostomy bag over her IR drain site and feels drainage has significantly reduced. She complains of sweats but denies any documented fever or chills. She denies any lightheadedness, dizziness, presyncope, chest pain, shortness breath at rest, cough, nausea, vomiting, melena or hematochezia. She does complain of dyspnea on exertion and fatiguing easily. She has significant increased lower extremity swelling which has been present since hospitalization. Of significance patient was diagnosed with initial colon mass via colonoscopy in December due to inability to defecate. Patient denies alcohol use since October. She has also stopped smoking since recent hospitalization. She lives at home with her brother and typically ambulates with a walker. Allergies Allergy/AdvReac Type Severity Reaction Status Date / Time amoxicillin Allergy Severe FACE Verified 02/06/23 15:07 SWELLED bupropion Allergy Severe ANAPHYLAXIS Verified 02/06/23 15:07 Home Medications Medication Instructions Recorded Confirmed Type multivitamin 1 tab PO DAILY 12/30/22 03/09/23 History docusate sodium 100 mg capsule 100 mg PO AMHS 01/25/23 03/09/23 History (Colace) lisinopril 10 mg tablet 10 mg PO DAILY 01/25/23 03/09/23 History acetaminophen 500 mg tablet 1,000 mg PO Q8 03/01/23 03/09/23 History oxycodone 10 mg tablet 10 mg PO Q6H PRN severe incisional 03/01/23 03/09/23 History pain prochlorperazine maleate 10 mg 10 mg PO Q6 PRN Nausea 03/01/23 03/09/23 History tablet baclofen 10 mg tablet 10 mg PO Q8H PRN Spasms 03/09/23 03/09/23 History carisoprodol 350 mg tablet 350 mg PO BID PRN Muscle Spasm 03/09/23 03/09/23 History ciprofloxacin HCl 500 mg tablet 500 mg PO BID 03/09/23 03/09/23 History metronidazole 500 mg tablet 500 mg PO Q8H 03/09/23 03/09/23 History mirtazapine 15 mg tablet 15 mg PO HS 03/09/23 03/09/23 History morphine 30 mg tablet,extended 30 mg PO Q12H 03/09/23 03/09/23 History release (MS Contin) sennosides 8.6 mg capsule (senna) 8.6 mg PO HS PRN Constipation 03/09/23 03/09/23 History Past Med/Surg History Medical History Graves disease Metastatic colon cancer in female (01/01/23) No pertinent past medical history Surgical History History of cervical cerclage History of liver biopsy 01/01/23 Hx of cataract surgery Bilateral Hx of colonoscopy 01/01/23 with biopsy of colon mass Previous section S/P fine needle aspiration Pancreas on 01/01/23 Family History Mother , 86yo Cervical cancer Hypertension Father , 86yo Diverticulitis CHF (congestive heart failure) Hypertension Brother No problems noted. Brother No problems noted. Brother No problems noted. Sister Hypertension Sister Hypertension Sister No problems noted. Daughter No problems noted. Daughter No problems noted. 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 How many Children do You have: 2 Feels Safe at Home: Yes caffeine: Yes (3-4 cups/day) during the past year weight has: decreased > 10 lbs Assistive Devices: Denture - Upper and Glasses Review of Systems Review of Systems: All systems reviewed & are unremarkable except as noted in HPI & below Physical Exam Physical Exam: Constitutional: Appears older than stated age, chronically ill-appearing, lying in bed, tearful, WD/WN, vitals as above, NAD, sitting up in bed, pleasant, conversing easily Head: Normocephalic, Atraumatic Eyes: PERRL, conjunctivae normal, anicteric sclerae ENMT: external ear and nose normal, oropharynx normal with dry membranes Neck: trachea midline, no thyromegaly normal visual inspection Respiratory: normal respiratory effort, lungs clear to auscultation, no wheeze, rales, rhonchi. Normal insp/exp effort, no accessory muscle use Cardiovascular: RRR, no murmur, +3 lower ext edema Vessels: no JVD or carotid bruit Chest: normal inspection of chest Abdomen: obese abd, incisions healing well, RLQ ostomy with stool output brown, periumbilical drain site with ostomy bag and minimal output, hypoactive bowel sounds, soft, tender but not rigidity or guarding Musculoskeletal: no cyanosis or clubbing, AROM x 4 Skin: no rashes, warm and dry normal turgor Neurologic: PERRL, EOMI, accommodation nl, no face palsy, no dysarthria CN's II-XI intact bilaterally and moves all extremities Psychiatric: A+Ox3, euthymic affect Lymphatic: no cervical or axillary lymphadenopathy : deferred Results & Data Results & Data Vital Signs (Past 12 Hours) Vital Signs Temp Pulse Pulse Resp BP BP Pulse Ox 03/09/23 11:35 85 03/09/23 07:30 89 16 127/72 97 03/09/23 07:00 94 H 19 133/61 96 03/09/23 07:26 97 03/09/23 07:00 37.2 C 03/09/23 06:00 95 H 17 135/70 96 03/09/23 05:30 100 H 21 134/72 97 03/09/23 06:00 92 H 03/09/23 05:00 100 H 14 131/76 97 03/09/23 04:30 103 H 18 134/82 97 03/09/23 04:00 104 H 20 147/79 H 97 03/09/23 03:49 106 H 25 H 161/82 H 95 03/09/23 02:10 100 H 03/09/23 02:30 95 H 15 136/73 89 L 03/09/23 03:03 117 H 29 H 154/107 H 93 03/09/23 02:17 99 H 16 119/73 94 O2 Del Method O2 Flow Rate 03/09/23 11:35 03/09/23 07:30 Oxymask 3 03/09/23 07:00 Oxymask 3 03/09/23 07:26 Room Air 03/09/23 07:00 03/09/23 06:00 Oxymask 3 03/09/23 05:30 Oxymask 3 03/09/23 06:00 03/09/23 05:00 Oxymask 3 03/09/23 04:30 Oxymask 3 03/09/23 04:00 Oxymask 3 03/09/23 03:49 Oxymask 3 03/09/23 02:10 03/09/23 02:30 Nasal Cannula 1 03/09/23 03:03 Nasal Cannula 03/09/23 02:17 Room Air Diagnostic Findings Chest CTA 03/09/23 08:41 CT angio chest PE protocol CLINICAL HISTORY: PE TECHNIQUE: Multidetector row helical CT of the chest was performed with angiographic protocol. Coronal and sagittal reformations were obtained. Coronal and sagittal MIPS were obtained from the axial data set and were submitted for review. Automated dose lowering techniques and/or adjustment according to patient size were utilized for this exam. CT DOSE: 2613.79 mGy.cm Comparison: Comparison is made to chest radiograph 02/06/2023 FINDINGS: Lungs and pleura: Atelectasis is seen with numerous scattered groundglass opacities. There is a 4 mm nodule in the left upper lobe (series 7 image 205) and a 3 mm nodule in the right lower lobe (image 110). Heart and pericardium: Cardiomegaly is seen with biatrial enlargement. Vessels: There is a small pulmonary embolus in a left upper lobe segmental branch. Mediastinum and shanita: Subcentimeter lymph nodes are seen. Chest wall and lower neck: A right port catheter is seen. Abdomen: For findings below the diaphragm, please refer to CT of the abdomen dated the same. Bones: Degenerative changes in the thoracic spine. IMPRESSION: 1. A small subsegmental pulmonary embolus is seen in the left upper lobe without evidence of right heart strain. 2. Atelectasis with scattered groundglass opacities which may represent infectious/inflammatory process. ACT 112: Negative or not required by law. Electronically signed by: Armond Reyes M.D. 03/09/2023 12:[address] 03/09/23 08:41 CT head/brain wo con CLINICAL HISTORY: fall Technique: Contiguous axial CT images of the head were acquired from the base of the skull to the vertex without intravenous contrast administration. Images were viewed in brain, subdural and bone windows. Automated dose lowering techniques and/or adjustment according to patient size were utilized for this exam. Comparison: None available at the time of this dictation. Findings: The ventricles, basal cisterns, and cerebral sulci are normal. There is no acute intracranial hemorrhage or evidence of acute territorial infarction. Neither mass effect, shift of the midline structures, nor abnormal extra-axial fluid collections are shown. Imaged portions of the paranasal sinuses and mastoid air cells are clear. The orbits appear normal. There are no acute fractures of the calvaria or scalp swelling. Impression: No acute intracranial hemorrhage, no evidence of acute territorial infarction or other acute intracranial disease process. ACT 112: Negative or not required by law. Electronically signed by: Armond Reyes M.D. 03/09/2023 12:06 PM Abdomen/Pelvis CT 03/09/23 08:44 CT OF THE ABDOMEN AND PELVIS WITH CONTRAST CLINICAL HISTORY: Recent abscess and pain. COMPARISON STUDY: CT of the abdomen and pelvis February 06, 2023 and KUB February 07, 2023. TECHNIQUE: Following IV administration of 105 mL of Optiray, axial images of the abdomen and pelvis were obtained from the lung bases to the proximal femurs. Images were reviewed in the axial, sagittal, and coronal planes. IV contrast was administered without complication. Automated exposure control was utilized for the study. A dose lowering technique was utilized adhering to the principles of ALARA. FINDINGS: Please note that the chest CT will be reported separately. Anasarca is noted. There is a trace right pleural effusion. Subpleural opacities within the lower lungs are noted. In addition, there are scattered ground glass opacities within the lungs. No pneumatosis, free air or portal venous gas is present. Numerous hepatic metastases have increased in size since CT of February 06, 2023. Index right hepatic dome lesion on image 65 of 536 measures 7.8 cm. It previously measured 6.6 cm. Index lateral segment lesion on image 106 measures 7 .1 cm. It previously measured 5.9 cm. The spleen, adrenal glands and kidneys are unremarkable. There is no biliary or pancreatic ductal dilatation. Moderate gallbladder distention has developed. A small amount of perihepatic and pericholecystic fluid is present. Enhancing 5.6 x 4.9 cm pancreatic body mass is unchanged. A right upper quadrant colostomy is present. There is no evidence for a bowel obstruction. Note is again made of an ulcerated rectosigmoid mass with associated gas and fluid containing collection that measures 7.8 x 6.9 cm. This fluid collection has slightly increased in size since CT of February 06, 2023. Left adnexal cystic lesion measuring approximately 6.8 cm has slightly increased in size since prior exam. There has been interval development of a fluid and gas containing left adnexal abnormality which surrounds the left adnexal cystic lesion. This is suggestive of an abscess with contained perforation. This collection measures 8.6 x 7.2 cm. A 4 cm cystic focus within the cul-de-sac is unchanged. Multiple implants adjacent to the rectosigmoid mass as well as enlarged lymph nodes are again noted. These are similar to prior exam. There is been interval development of anterior peritoneal implants. Index implant measures 3.9 x 1 cm. No suspicious osseous lesions are noted. Major vasculature is patent. There is no hydronephrosis. IMPRESSION: 1. Redemonstration of an ulcerated rectosigmoid mass consistent with malignancy and an associated 7.8 x 6.9 cm fluid and gas containing collection at site of tumor which favors a contained perforation with abscess formation. Interval development of a contiguous left adnexal gas and fluid containing collection measuring 8.6 x 7.2 cm suggestive of an additional abscess which surrounds a left adnexal cystic lesion. 2. No bowel obstruction. Status post right-sided colostomy. 3. Progression of metastatic disease, including increase in hepatic metastases and peritoneal implants. Redemonstration of multiple implants adjacent to the primary tumor and pelvic lymphadenopathy. 4. Moderate gallbladder distention. Small amount of perihepatic and pericholecystic fluid. If suspicion for acute cholecystitis, a nuclear medicine hepatobiliary scan could be obtained. 5. Anasarca. 6. Airspace opacities within the lungs which may reflect an infectious process. ACT 112: Negative or not required by law. Electronically signed by: Leonides Aiken M.D. 03/09/2023 12:39 PM Medications Administered Medication List Discontinued Medications Hydromorphone HCl (Hydromorphone Inj 0.5 Mg/0.5 Ml Syr) 0.25 mg IV NOW STA Stop: 03/09/23 10:55 Last Admin: 03/09/23 11:01 Dose: 0.25 mg Documented By: NATALYA Sodium Chloride (Nss 1000ml) 2,000 mls @ 999 mls/hr IV .Q2H1M ONE Stop: 03/09/23 05:30 Last Infusion: 03/09/23 05:46 Dose: 0 mls/hr Documented By: Admin: 03/09/23 03:45 Dose: 999 mls/hr Documented By: GAMA Ceftriaxone Sodium (Rocephin) 2,000 mg in 70 mls @ 140 mls/hr IV NOW STA Stop: 03/09/23 05:06 Last Infusion: 03/09/23 05:34 Dose: 0 mls/hr Documented By: Admin: 03/09/23 05:04 Dose: 140 mls/hr Documented By: GAMA Ioversol (Optiray 320 500ml) 105 ml IV ONCE ONE Stop: 03/09/23 12:02 Last Admin: 03/09/23 12:02 Dose: 105 ml Documented By: ANDREAS Oxycodone/Acetaminophen (Oxycodone/Acetaminophen 10-325 Tab) 1 tab PO NOW STA Stop: 03/09/23 04:08 Last Admin: 03/09/23 04:11 Dose: 1 tab Documented By: GAMA ECG Rate (beats per minute): 96 Rhythm: normal sinus Additional Comments: qtc 457ms COVID-19 Results Results COVID-19 Adm Lab Results: RBC 3.53 M/uL (4.20-5.40) L 03/09/23 WBC 19.52 K/ul (4.8-10.8) H 03/09/23 Hgb 9.1 g/dl (12.0-16.0) L 03/09/23 Hct 29.7 % (37.0-47.0) L 03/09/23 Plt Count 373 K/uL (130-400) 03/09/23 Neutrophils (%) (Auto) 91.2 % 03/09/23 Lymphocytes (%) (Auto) 2.4 % 03/09/23 Monocytes # (Auto) 1.02 K/uL (0.11-0.59) H 03/09/23 Eosinophils # (Auto) 0.01 K/uL (0-0.50) 03/09/23 Immature Granulocyte % (Auto) 0.8 % 03/09/23 Neutrophils # (Auto) 17.81 K/uL (1.40-6.50) H 03/09/23 Lymphocytes # (Auto) 0.46 K/uL (1.2-3.4) L 03/09/23 Monocytes # (Auto) 1.02 K/uL (0.11-0.59) H 03/09/23 Eosinophils # (Auto) 0.01 K/uL (0-0.50) 03/09/23 Basophils # (Auto) 0.06 K/uL (0-0.2) 03/09/23 Immature Granulocyte # (Auto) 0.16 K/uL (0.01-0.20) 3 Polychromasia 1+ 03/09/23 Hypochromasia Present 03/09/23 Poikilocytosis Present 03/09/23 Na 132 mmol/L (136-145) L 03/09/23 K 3.6 mmol/L (3.5-5.1) 03/09/23 Cl 100 mmol/L (98-107) 03/09/23 CO2 23 mmol/L (21-32) 03/09/23 Anion Gap 9 (3-11) 03/09/23 BUN 10 mg/dl (6-23) 03/09/23 Creatinine 0.39 mg/dl (0.6-1.2) L 03/09/23 BUN/Creatinine Ratio 25.6 (10-20) H 03/09/23 Glucose Level 126 mg/dl (70-99(Fasting)) H 03/09/23 Ca 8.7 mg/dl (8.6-10.3) 03/09/23 Total Bilirubin 0.8 mg/dl (0.2-1.0) 03/09/23 AST/SGOT 49 U/L (13-39) H 03/09/23 ALT/SGPT 13 U/L (7-52) 03/09/23 Alkaline Phosphatase 1218 U/L (34-104) H 03/09/23 Total Protein 6.1 gm/dl (6.0-8.3) 03/09/23 Albumin 2.5 gm/dl (3.4-5.0) L 03/09/23 Globulin 3.6 gm/dl (2.5-4.0) 03/09/23 Albumin/Globulin Ratio 0.7 (0.9-2) L 03/09/23 Procalcitonin 4.83 ng/ml (0-0.5) H 03/09/23 SARS-CoV-2, RNA, NAAT NEGATIVE (NEGATIVE) 03/09/23 Code Status & VTE Plan Code Status DNR/DNI VTE Prophylaxis Plan VTE Prophylaxis will be ordered: Yes Supervising Physician Co-Signing Physician Notes Patient seen and examined independently. Discussed with above provider. Patient is a 89-year-old female with recent diagnosis of stage IV colon cancer; hospitalized in [facility] [place] [place] from 02/07 to 02/25 for management of pelvic abscess. She had undergone IR drainage of the abscess and eventual creation of colostomy for bowel function. She comes from home with generalized weakness and fall. CT abdomen and pelvis was done; results as above. Patient has 7.8 cm X 6.9 cm gas containing collection at site of tumor with possible abscess formation along with 8.6 X 7.2 cm additional abscess in left adnexal cystic lesion. She also has progressive metastatic disease. CTA chest revealed small subsegmental PE in right upper lobe. Discussed with patient regarding the imaging findings. Her daughter, son-in-law and sister were at bedside. She does not want to be transferred to any outside hospital. Patient reports that she has been in significant pain since several last weeks. She does not want any interventions which include antibiotics, IV fluids, lab work or imaging. She wants to be made as comfortable as possible. Comfort care measures added. Dilaudid for pain control; palliative consulted.
--- NOTE | 2023-03-09 12:27 | CT Scan Report ---
CT angio chest PE protocol CLINICAL HISTORY: PE TECHNIQUE: Multidetector row helical CT of the chest was performed with angiographic protocol. Wall l and sagittal reformations were obtained. Coronal and sagittal MIPS were obtained from the axial linwood a set and were submitted for review. Automated dose lowering techniques and/or adjustment according to patient size were utilized for this exam. CT DOSE: 2613.79 mGy.cm Comparison: Comparison is made to chest radiograph 02/06/2023 FINDINGS: Lungs and pleura: Atelectasis is seen with numerous scattered groundglass opacities. There is a 4 mm nodule in the left upper lobe (series 7 image 205) and a 3 mm nodule in the right lower lobe (image 1 10). Heart and pericardium: Cardiomegaly is seen with biatrial enlargement. Vessels: There is a small pulmonary embolus in a left upper lobe segmental branch. Mediastinum and shanita: Subcentimeter lymph nodes are seen. Chest wall and lower neck: A right port catheter is seen. Abdomen: For findings below the diaphragm, please refer to CT of the abdomen dated the same. Bones: Degenerative changes in the thoracic spine. IMPRESSION: 1. A small subsegmental pulmonary embolus is seen in the left upper lobe without evidence of right h eart strain. 2. Atelectasis with scattered groundglass opacities which may represent infectious/inflammatory proc ess. ACT 112: Negative or not required by law. Electronically signed by: Armond Reyes M.D. 03/09/2023 12:26 PM
--- NOTE | 2023-03-09 12:41 | CT Scan Report ---
CT OF THE ABDOMEN AND PELVIS WITH CONTRAST CLINICAL HISTORY: Recent abscess and pain. COMPARISON STUDY: CT of the abdomen and pelvis February 06, 2023 and KUB February 07, 2023. TECHNIQUE: Following IV administration of 105 mL of Optiray, axial images of the abdomen and pelvis w ere obtained from the lung bases to the proximal femurs. Images were reviewed in the axial, sagittal, and coronal planes. IV contrast was administered without complication. Automated exposure control w as utilized for the study. A dose lowering technique was utilized adhering to the principles of ANTHONY Ward. FINDINGS: Please note that the chest CT will be reported separately. Anasarca is noted. There is a tr brice right pleural effusion. Subpleural opacities within the lower lungs are noted. In addition, there are scattered ground glass opacities within the lungs. No pneumatosis, free air or portal venous gas is present. Numerous hepatic metastases have increased in size since CT of February 06, 2023. Index rig ht hepatic dome lesion on image 65 of 536 measures 7.8 cm. It previously measured 6.6 cm. Index later al segment lesion on image 106 measures 7.1 cm. It previously measured 5.9 cm. The spleen, adrenal gl ands and kidneys are unremarkable. There is no biliary or pancreatic ductal dilatation. Moderate gall bladder distention has developed. A small amount of perihepatic and pericholecystic fluid is present. Enhancing 5.6 x 4.9 cm pancreatic body mass is unchanged. A right upper quadrant colostomy is presen t. There is no evidence for a bowel obstruction. Note is again made of an ulcerated rectosigmoid mass with associated gas and fluid containing collection that measures 7.8 x 6.9 cm. This fluid collectio n has slightly increased in size since CT of February 06, 2023. Left adnexal cystic lesion measuring laura roximately 6.8 cm has slightly increased in size since prior exam. There has been interval developmen t of a fluid and gas containing left adnexal abnormality which surrounds the left adnexal cystic lesi on. This is suggestive of an abscess with contained perforation. This collection measures 8.6 x 7.2 c m. A 4 cm cystic focus within the cul-de-sac is unchanged. Multiple implants adjacent to the rectosig moid mass as well as enlarged lymph nodes are again noted. These are similar to prior exam. There is been interval development of anterior peritoneal implants. Index implant measures 3.9 x 1 cm. No susp icious osseous lesions are noted. Major vasculature is patent. There is no hydronephrosis. IMPRESSION: 1. Redemonstration of an ulcerated rectosigmoid mass consistent with malignancy and an associated 7.8 x 6.9 cm fluid and gas containing collection at site of tumor which favors a contained perforation w ith abscess formation. Interval development of a contiguous left adnexal gas and fluid containing col lection measuring 8.6 x 7.2 cm suggestive of an additional abscess which surrounds a left adnexal cys tic lesion. 2. No bowel obstruction. Status post right-sided colostomy. 3. Progression of metastatic disease, including increase in hepatic metastases and peritoneal implant s. Redemonstration of multiple implants adjacent to the primary tumor and pelvic lymphadenopathy. 4. Moderate gallbladder distention. Small amount of perihepatic and pericholecystic fluid. If suspici on for acute cholecystitis, a nuclear medicine hepatobiliary scan could be obtained. 5. Anasarca. 6. Airspace opacities within the lungs which may reflect an infectious process. ACT 112: Negative or not required by law. Electronically signed by: Leonides Aiken M.D. 03/09/2023 12:39 PM
[2023-03-09] MEDS ORDERED: MAGNESIUM HYDROXIDE SUSP 30 ML UDC PO PRN (12:55)
[2023-03-09] MEDS ORDERED: ALUMINUM/MAGNESIUM SUSP 30 ML UDC PO PRN (12:55)
[2023-03-09] MEDS ORDERED: BACLOFEN 10 MG TAB PO PRN (12:55)
[2023-03-09] MEDS ORDERED: ONDANSETRON INJ 2 MG/ML 2 ML VIAL IV PRN (12:55)
[2023-03-09] MEDS ORDERED: ACETAMINOPHEN 325 MG TAB PO PRN (12:55)
[2023-03-09] MEDS ORDERED: oxyCODONE HCL IR 5 MG TAB (IMMEDIATE RELEASE) PO PRN (12:55)
[2023-03-09] MEDS ORDERED: POLYETHYLENE (MIRALAX) 17 GM PACK PO PRN (12:55)
[2023-03-09] MEDS ORDERED: SENNA 8.6 MG TAB PO PRN (13:14)
[2023-03-09] MEDS ORDERED: metroNIDAZOLE 500 MG/100 ML BAG IV SCH (13:30)
[2023-03-09] MEDS ORDERED: CEFEPIME 2,000 MG in SYRINGE 0 ML IV SCH (14:00)
--- NOTE | 2023-03-09 14:21 | Surgery Consultation ---
Date of Consultation March 09, 2023 Assessment & Plan (1) Metastatic colon cancer in female: This is a 62yF with a PMH of metastatic colon ca and hyperthyroidism who presents to the [facility] ED on 03/09/23 after experiencing multiple falls. Of significance the patient was recently admitted to [facility] from 02/07/23-02/25/23 for presumed colon ca of the rectosigmoid with contained abscess where she ultimately underwent a transverse loop colostomy and IR drainage of abscess. Today in the ER she underwent a CT a/p that showed demonstration of an ulcerated rectosigmoid mass consistent with malignancy and an associated 7.8 x 6.9 cm fluid and gas containing collection at site of tumor which favors a contained perforation with abscess formation. There is also interval development of a contiguous left adnexal gas and fluid containing collection measuring 8.6 x 7.2 cm suggestive of an additional abscess which surrounds a left adnexal cystic lesion. There is no bowel obstruction. There is also progression of metastatic disease, including increase in hepatic metastases and peritoneal implants. On exam patient's abdomen is soft with generalized discomfort to palpation throughout the abdomen. Ostomy is functioning with +gas/stool in the bag. Prior IR drain site is open with colostomy bag overtop draining scant serous fluid. Labs show WBC 19, lactate 2.5, Hbg 9.1. Patient with stable vitals requiring some supplemental O2. Discussed options with patient regarding IV abx vs seeing if IR could drain collections. Otherwise we would have no plans for surgical intervention here given her scenario. She verbalized that she did not want any further treatments and is likely going to proceed with a more comfort care plan. She does not want to at home and wants to be in the hospital. Would recommend palliative care consult. Please let us know if we can be of further assistance. (2) Abdominal abscess: History of Present Illness Attending Physician: Franklin Gomez MD History of Present Illness This is a 62yF with a PMH of metastatic colon ca and hyperthyroidism who presents to the [facility] ED on 03/09/23 after experiencing multiple falls. Of significance the patient was recently admitted to [facility] from 02/07/23-02/25/23 for presumed colon ca of the rectosigmoid with contained abscess where she ultimately underwent a transverse loop colostomy and IR drainage of abscess. Today in the ER she underwent a CT a/p that showed demonstration of an ulcerated rectosigmoid mass consistent with malignancy and an associated 7.8 x 6.9 cm fluid and gas containing collection at site of tumor which favors a contained perforation with abscess formation. There is also interval development of a contiguous left adnexal gas and fluid containing collection measuring 8.6 x 7.2 cm suggestive of an additional abscess which surrounds a left adnexal cystic lesion. There is no bowel obstruction. There is also progression of metastatic disease, including increase in hepatic metastases and peritoneal implants. Patient reports ongoing abdominal pain since discharge from [place]. She has been tolerating a diet without nausea/vomiting. Her ostomy has been functioning. She did have an IR drain in place, but this was removed and now an ostomy bag is over it. She reports the fluid collection has always been serous in nature, but has significantly slowed down over the last 2 days. Denies fevers/chills. Allergies Allergy/AdvReac Type Severity Reaction Status Date / Time amoxicillin Allergy Severe FACE Verified 02/06/23 15:07 SWELLED bupropion Allergy Severe ANAPHYLAXIS Verified 02/06/23 15:07 Home Medications Medication Instructions Recorded Confirmed Type multivitamin 1 tab PO DAILY 12/30/22 03/09/23 History docusate sodium 100 mg capsule 100 mg PO AMHS 01/25/23 03/09/23 History (Colace) lisinopril 10 mg tablet 10 mg PO DAILY 01/25/23 03/09/23 History acetaminophen 500 mg tablet 1,000 mg PO Q8 03/01/23 03/09/23 History oxycodone 10 mg tablet 10 mg PO Q6H PRN severe incisional 03/01/23 03/09/23 History pain prochlorperazine maleate 10 mg 10 mg PO Q6 PRN Nausea 03/01/23 03/09/23 History tablet baclofen 10 mg tablet 10 mg PO Q8H PRN Spasms 03/09/23 03/09/23 History carisoprodol 350 mg tablet 350 mg PO BID PRN Muscle Spasm 03/09/23 03/09/23 History ciprofloxacin HCl 500 mg tablet 500 mg PO BID 03/09/23 03/09/23 History metronidazole 500 mg tablet 500 mg PO Q8H 03/09/23 03/09/23 History mirtazapine 15 mg tablet 15 mg PO HS 03/09/23 03/09/23 History morphine 30 mg tablet,extended 30 mg PO Q12H 03/09/23 03/09/23 History release (MS Contin) sennosides 8.6 mg capsule (senna) 8.6 mg PO HS PRN Constipation 03/09/23 03/09/23 History Patient History Medical History Graves disease Metastatic colon cancer in female (01/01/23) No pertinent past medical history Surgical History History of cervical cerclage History of liver biopsy 01/01/23 Hx of cataract surgery Bilateral Hx of colonoscopy 01/01/23 with biopsy of colon mass Previous section S/P fine needle aspiration Pancreas on 01/01/23 Family History Mother , 86yo Cervical cancer Hypertension Father , 86yo Diverticulitis CHF (congestive heart failure) Hypertension Brother No problems noted. Brother No problems noted. Brother No problems noted. Sister Hypertension Sister Hypertension Sister No problems noted. Daughter No problems noted. Daughter No problems noted. 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 How many Children do You have: 2 Feels Safe at Home: Yes caffeine: Yes (3-4 cups/day) during the past year weight has: decreased > 10 lbs Assistive Devices: Denture - Upper and Glasses Review of Systems Constitutional: + sweats, + fatigue and + weakness; no fever and no chills Respiratory: no dyspnea Cardiovascular: no chest pain Gastrointestinal: + abdominal pain; no nausea, no vomiting and no change in bowel habits Physical Exam Physical Exam: awake/alert, somewhat tearful Respiratory: on supplemental O2 Gastrointestinal (Abdomen): Inspection/Auscultation: abdomen not distended Percussion/Palpation: + abdomen tender (generalized discomfort throughout abdomen) and abdomen soft ostomy functioning with + stool/gas in bag. scant serous drainage in ostomy bag from prior IR drain site Results & Data Vital Signs (Past 12 Hours) Vital Signs Temp Pulse Pulse Resp BP BP Pulse Ox 03/09/23 14:00 81 16 96 03/09/23 14:00 141/78 H 03/09/23 13:50 86 21 97 03/09/23 13:40 84 18 96 03/09/23 13:30 83 15 96 03/09/23 13:30 140/77 03/09/23 13:20 85 15 97 03/09/23 13:10 87 14 97 03/09/23 13:00 86 19 96 03/09/23 13:00 137/83 03/09/23 12:50 86 16 96 03/09/23 12:40 83 22 95 03/09/23 12:30 84 19 94 03/09/23 12:30 136/76 03/09/23 12:20 85 17 94 03/09/23 12:17 88 16 03/09/23 11:40 87 15 97 03/09/23 11:30 87 17 97 03/09/23 11:30 137/76 03/09/23 11:20 88 20 97 03/09/23 11:10 87 19 97 03/09/23 11:00 87 19 97 03/09/23 11:00 144/75 H 03/09/23 10:50 96 H 16 98 03/09/23 10:00 84 17 141/76 H 98 03/09/23 09:30 91 H 18 136/73 97 03/09/23 08:30 89 19 122/66 94 03/09/23 08:00 92 H 17 123/71 96 03/09/23 11:35 85 03/09/23 07:30 89 16 127/72 97 03/09/23 07:00 94 H 19 133/61 96 03/09/23 07:26 97 03/09/23 07:00 37.2 C 03/09/23 06:00 95 H 17 135/70 96 03/09/23 05:30 100 H 21 134/72 97 03/09/23 06:00 92 H 03/09/23 05:00 100 H 14 131/76 97 03/09/23 04:30 103 H 18 134/82 97 03/09/23 04:00 104 H 20 147/79 H 97 03/09/23 03:49 106 H 25 H 161/82 H 95 03/09/23 02:30 95 H 15 136/73 89 L 03/09/23 03:03 117 H 29 H 154/107 H 93 03/09/23 02:17 99 H 16 119/73 94 O2 Del Method O2 Flow Rate 03/09/23 14:00 03/09/23 14:00 03/09/23 13:50 03/09/23 13:40 03/09/23 13:30 03/09/23 13:30 03/09/23 13:20 03/09/23 13:10 03/09/23 13:00 03/09/23 13:00 03/09/23 12:50 03/09/23 12:40 03/09/23 12:30 03/09/23 12:30 03/09/23 12:20 03/09/23 12:17 03/09/23 11:40 03/09/23 11:30 03/09/23 11:30 03/09/23 11:20 03/09/23 11:10 03/09/23 11:00 03/09/23 11:00 03/09/23 10:50 03/09/23 10:00 03/09/23 09:30 03/09/23 08:30 03/09/23 08:00 03/09/23 11:35 03/09/23 07:30 Oxymask 3 03/09/23 07:00 Oxymask 3 03/09/23 07:26 Room Air 03/09/23 07:00 03/09/23 06:00 Oxymask 3 03/09/23 05:30 Oxymask 3 03/09/23 06:00 03/09/23 05:00 Oxymask 3 03/09/23 04:30 Oxymask 3 03/09/23 04:00 Oxymask 3 03/09/23 03:49 Oxymask 3 03/09/23 02:30 Nasal Cannula 1 03/09/23 03:03 Nasal Cannula 03/09/23 02:[address] Air Diagnostic Findings CT OF THE ABDOMEN AND PELVIS WITH CONTRAST CLINICAL HISTORY: Recent abscess and pain. COMPARISON STUDY: CT of the abdomen and pelvis February 06, 2023 and KUB February 07, 2023. TECHNIQUE: Following IV administration of 105 mL of Optiray, axial images of the abdomen and pelvis were obtained from the lung bases to the proximal femurs. Images were reviewed in the axial, sagittal, and coronal planes. IV contrast was administered without complication. Automated exposure control was utilized for the study. A dose lowering technique was utilized adhering to the principles of ALARA. FINDINGS: Please note that the chest CT will be reported separately. Anasarca is noted. There is a trace right pleural effusion. Subpleural opacities within the lower lungs are noted. In addition, there are scattered ground glass opacities within the lungs. No pneumatosis, free air or portal venous gas is present. Numerous hepatic metastases have increased in size since CT of February 06, 2023. Index right hepatic dome lesion on image 65 of 536 measures 7.8 cm. It previously measured 6.6 cm. Index lateral segment lesion on image 106 measures 7.1 cm. It previously measured 5.9 cm. The spleen, adrenal glands and kidneys are unremarkable. There is no biliary or pancreatic ductal dilatation. Moderate gallbladder distention has developed. A small amount of perihepatic and pericholecystic fluid is present. Enhancing 5.6 x 4.9 cm pancreatic body mass is unchanged. A right upper quadrant colostomy is present. There is no evidence for a bowel obstruction. Note is again made of an ulcerated rectosigmoid mass with associated gas and fluid containing collection that measures 7.8 x 6.9 cm. This fluid collection has slightly increased in size since CT of February 06, 2023. Left adnexal cystic lesion measuring approximately 6.8 cm has slightly increased in size since prior exam. There has been interval development of a fluid and gas containing left adnexal abnormality which surrounds the left adnexal cystic lesion. This is suggestive of an abscess with contained perforation. This collection measures 8.6 x 7.2 cm. A 4 cm cystic focus within the cul-de-sac is unchanged. Multiple implants adjacent to the rectosigmoid mass as well as enlarged lymph nodes are again noted. These are similar to prior exam. There is been interval development of anterior peritoneal implants. Index implant measures 3.9 x 1 cm. No suspicious osseous lesions are noted. Major vasculature is patent. There is no hydronephrosis. IMPRESSION: 1. Redemonstration of an ulcerated rectosigmoid mass consistent with malignancy and an associated 7.8 x 6.9 cm fluid and gas containing collection at site of tumor which favors a contained perforation with abscess formation. Interval development of a contiguous left adnexal gas and fluid containing collection measuring 8.6 x 7.2 cm suggestive of an additional abscess which surrounds a left adnexal cystic lesion. 2. No bowel obstruction. Status post right-sided colostomy. 3. Progression of metastatic disease, including increase in hepatic metastases and peritoneal implants. Redemonstration of multiple implants adjacent to the primary tumor and pelvic lymphadenopathy. 4. Moderate gallbladder distention. Small amount of perihepatic and pericholecystic fluid. If suspicion for acute cholecystitis, a nuclear medicine hepatobiliary scan could be obtained. 5. Anasarca. 6. Airspace opacities within the lungs which may reflect an infectious process. ACT 112: Negative or not required by law. Electronically signed by: Leonides Aiken M.D. 03/09/2023 12:39 PM PG Care Time/CCT Total # of Minutes Spent Total Time Spent with Patient: Total time spent is greater than 50% in coordination of care (as documented) at patient's floor/unit and/or counseling patient: Coding Level of Care Code 39265 IN/OBS CONSULT LVL 4,60M Diagnoses Metastatic colon cancer in female C18.9 Abdominal abscess
[2023-03-09] MEDS ORDERED: HYDROmorphone INJ 1 MG/ML SYRINGE IV PRN (14:51)
[2023-03-09] MEDS: ACETAMINOPHEN 500 MG TAB PO SCH ×2 (17:59→20:34)
[2023-03-09] MEDS: HYDROmorphone INJ 1 MG/ML SYRINGE IV PRN ×2 (18:04→21:04)
[2023-03-09] MEDS ORDERED: ONDANSETRON 4 MG OD TAB SL PRN (18:55)
[2023-03-09] MEDS ORDERED: LORazepam 0.5 MG TAB PO PRN (18:55)
[2023-03-09] MEDS ORDERED: LORazepam 2 MG/1 ML VIAL IV PRN (18:55)
[2023-03-09 20:00] LABS: A calco-baum cmplx NotReported Not Detected (NotDetected); Bact fragilis Not Reported Not Detected (NotDetected); C auris Not Reported Not Detected (NotDetected); Calbicans Not Reported Not Detected (NotDetected); Candida glabrata Not Reported Not Detected (NotDetected); Candida krusei Not Reported Not Detected (NotDetected); Cneoformans/gatti Not Reported Not Detected (NotDetected); Cparapsilosis Not Reported Not Detected (NotDetected); Ctropicalis Not Reported Not Detected (NotDetected); E cloacae compx Not Reported Not Detected (NotDetected); Efaecalis Not Reported Not Detected (NotDetected); Efaecium Not Reported DETECTED (NotDetected); Enterobacterales Not Reported Not Detected (NotDetected); Escherichia coli Not Reported Not Detected (NotDetected); H influenzae Not Reported Not Detected (NotDetected); K aerogenes Not Reported Not Detected (NotDetected); Koxytoca Not Reported Not Detected (NotDetected); Kpneumoniae grp Not Reported Not Detected (NotDetected); Lmonocyt Not Reported Not Detected (NotDetected); N meningitidis Not Reported Not Detected (NotDetected); P aeruginosa Not Reported Not Detected (NotDetected); Proteus spp Not Reported Not Detected (NotDetected); Salmonella spp Not Reported Not Detected (NotDetected); Smarcescens Not Reported Not Detected (NotDetected); Staph lugdunensis Not Reported Not Detected (NotDetected); Staph spp. Not Reported Not Detected (NotDetected); Staphaureus Not Reported Not Detected (NotDetected); Staphepi Not Reported Not Detected (NotDetected); Stenmaltophilia Not Reported Not Detected (NotDetected); Strep agal(GrpB) Not Reported Not Detected (NotDetected); Strep pneum Not Reported Not Detected (NotDetected); Strep pyog (GrpA) Not Reported Not Detected (NotDetected); Strep spp Not Reported Not Detected (NotDetected); VanAB Resistant Gene VRE Not Detected (NotDetected)
[2023-03-09 20:15] LABS: Enterococcus faecium DETECTED (NotDetected)
[2023-03-09] MEDS: MoRPHine SULFATE CR 15 MG TABCR PO SCH (20:36)
[2023-03-09] MEDS: DOCUSATE SODIUM 100 MG CAP PO SCH (20:36)
[2023-03-09] MEDS ORDERED: MIRTAZAPINE TAB 15 MG TAB PO SCH (21:00)
[2023-03-10] MEDS: HYDROmorphone INJ 1 MG/ML SYRINGE IV PRN ×4 (00:07→11:19)
[2023-03-10] MEDS ORDERED: HYDROmorphone INJ 0.5 MG/0.5 ML SYR IV STA (00:49)
[2023-03-10] MEDS: ACETAMINOPHEN 500 MG TAB PO SCH (06:37)
[2023-03-10] MEDS ORDERED: MULTIVITAMIN TAB PO SCH (09:00)
[2023-03-10] MEDS: DOCUSATE SODIUM 100 MG CAP PO SCH (09:23)
--- NOTE | 2023-03-10 09:34 | Palliative Care Consultation ---
Date of Consultation March 10, 2023 Assessment & Plan (1) Palliative care by specialist: Met with pt/family. Provided overview of Palliative Medicine, a subspecialty that provides specialized medical care for people living with a serious illness by offering a focus on quality of life. Palliative Medicine is often conflated with hospice: I advised patient/family that Palliative and hospice can be partners but we are not the same. It is important to understand the difference so that we may be informed, and not afraid. Palliative Medicine works to improve QOL through reduction of symptom burden/more control over their illness, for both the patient and family. Palliative medicine clinicians are board certified, specially-trained and another member of the patient's medical care team. We often provide an extra layer of support because our care is based on the needs of the patient, not the prognosis; as such, it's appropriate at any age/advancing stage of a serious illness and can be provided along with curative treatment. Palliative Medicine clinicians are also trained in advanced communication methodologies, to facilitate complex discussions about advanced illness planning, which are needed to help assure that the treatment choices match the patient's goals, aka delivering Goal Concordant care. Finally, we discussed that hospice is a visiting nurse service that focuses on care delivered at the very end of life for patients with terminal illness, with life expectancy less than 6 month. (2) Cancer related pain: Elizabeth has very severe, uncontrolled worsening cancer related pain with concomitant aggressive worsening of cancer burden on recent imaging. She has used Dilaudid 6mg IV + MS 60mg PO in past 24 hrs. This is approx 150 OMEs which is roughly 50mg IV MS equivalents MS 50mg IV per day is 10mg IV Dilaudid per days or approx 0.4mg per hour Dilaudid IV I have ordered a Dilaudid MUSIC THERAPY TEACHER as follows: Dilaudid 0.3mg per hour with 0.4mg MUSIC THERAPY TEACHER bolus q10min prn. I have discussed this approach, dosing, rationale with patient and her daughter as well as nursing. All are in agreement and verbalized understanding. All questions answered to their apparent satisfaction. I have discontinued IV Dilaudid prn order, oral MS Contin order and oral OxyIR order. (3) Need for comfort care: Met with pt and family for 60 min face to face Comfort Orders: Morphine []mg IV q30min prn air hunger/RR>20 and Morphine []mg IV q1h prn severe air hunger unrelieved by earlier dose. Hold for somnolence or RR < 12. If frequent use, would recommend initiating an infusion. If nephropathic, use Dilaudid 1-2mg IV q30min prn dyspnea, air hunger, pain. Keep a fan on and circulating air: movement of air across the face aids in the relief of dyspnea and air hunger along with the use of opioids for relief of cancer related and terminal dyspnea. Agitation/Nausea/Vomiting: Haldol Intensol 0.5 to 1mg PO Q4h prn nausea, agitation, hallucination Anxiety: Ativan IV 0.5 -1mg PO q4h prn, if no relief switch to IV formulation Patient is transitioning from a process of living to a process of dying. Patient/family are well aware of this, and they have elected/desire a plan of care focused on comfort/hospice and symptom management. Please stop non essential/non comfort focused meds and interventions Please stop monitors/liberate and free the patient of leads, monitor alarms, etc; watch the pt and assess for comfort; vital signs will not be "normal" during the dying process, therefore constant vigilance of the same will not aid in the goal of assuring comfort. (4) Encounter for hospice care discussion: ACP discussion face to face with pt and family x 60min We discussed the goals of hospice as a patient service and the goals of care; we discussed EOL trajectories and transitions dale the emotional impact of realizing mortality as a concrete reality from prior abstract considerations. Pt was reassured that no matter where they are along this trajectory, they are not alone - their medical team will remain by their side through their journey. Discussed the pros/cons of accepting help when especially weakened and distressed by pain-which would also help provide relief/decrease caregiver burden/strain. I provided education about the hospice benefit: an interdisciplinary program offered by nurses, nurses aides, social workers, chaplains and a director of graduate medical education for patients with a terminal condition and a life expectancy of less than 6 months. This is covered by Medicare at 100%/no out of pocket expense to patient and all meds/supplies needed by patient for the reason they are on hospice are paid for/covered by hospice. The goal is assure quality of life of the patient in their home setting (home, assisted, inpatient hospice setting) by providing symptoms management, psychosocial and spiritual support. However, they cannot offer 24 hours care and if the family is unable to provide that care, they will have to consider personal care with out of pocket cost vs. assisted placement. We discussed the goals of hospice as a patient service and the goals of care; we discussed EOL trajectories and transitions dale the emotional impact of realizing mortality as a concrete reality from prior abstract considerations. Pt was reassured that no matter where they are along this trajectory, they are not alone - their medical team will remain by their side through their journey. Discussed the pros/cons of accepting help when especially weakened and distressed by pain-which would also help provide relief/decrease caregiver burden/strain. Patient requires Hospice General Inpatient admission, GIP. A general inpatient care is a stay during which an individual who has elected hospice care receives general inpatient care in an inpatient facility for pain control or acute or chronic symptom management which cannot be managed in other settings. Short- term patient care may be provided in a participating hospital, hospice inpatient unit, or a participating SNF that additionally meets the special hospital standards regarding patient and staffing areas. General inpatient care (GIP) is allowed when the patient's medical condition warrants a short-term inpatient stay for symptom management. (As per [employer]'s (Condition of Participation) 40.1.5 Short Term Inpatient) The following guidelines have been identified as reasons to justify GIP, I have selected the indications for this patient in bold: 1. Pain evaluation to determine or adjust medication and determine appropriate treatment. 2. Intractable or protracted nausea inconsistent with management in the home. 3. Respiratory distress causing an unmanageable situation for patient in a home care setting. 4. Open lesion not responsive to home care and exacerbating symptom. 5. Rapid decline inconsistent with home care management related to varied factors such as bleeding. 6. Psychosis, severe confusion and combativeness secondary to end stage disease process. Patient shares a family home with her brother. They have cared for parents and grandparents at the house with hospice, and she is well versed in hospice services and philosophy. She would like this for herself but does not want to be in her house on hospice as she recognizes this would be too much for her brother to emotionally handle at this junction dale after so much loss in the home. She is worried that it would make him so distraught he would feel he could not remain in the family home anymore but she also knows he would not be able to find equivalent housing and so she doesn't want to go home. She is receptive to a [facility] hospice eval and I specifically advised her and family that this would be an interim step towards potential SNF with hospice dc down the line once her pain is better controlled. They asked about survival and I advised that given her rapid progression and decline, I anticipate a short anticipated survival of days to few weeks.Elizabeth expressed her agreement, stating that she feels her body is failing her, she can feel the shutting down process and her pain, weakness and overall discomfort continue to worsen. She states "I don't want to feel any more pain like this. I want to be comfortable and I want to have the most comfortable I can have, I have been suffering greatly for too long and I am done with feeling like I have to take this, that I don't deserve to be more comfortable. I'm dying, I know that and I want more comfort, more medicine to make me feel no pain." we discussed the side effects of more opioids would be sedation/less interactive and patient states this was a QOL trade off that was worth it to her and her family stated their unequivocal support. (5) Encounter for end of life care: Discussed changes pt may move through in the dying process including but not limited to sleeping more, disorientation when awake, restlessness, diminished senses/inability to respond to stimulus although ability to be aware of them remains intact longer, changes in body temperatures, skin changes/mottling/ cyanosis, respiratory pattern changes, oral secretions. Family verbalized understanding. The goal is to assure a peaceful . Additional information re dying process as follows : TEACHING THE FAMILY WHAT TO EXPECT WHEN THE PATIENT IS DYING (from Joon Mai MD, PhD) Introduction: Family members look to the medical team to help them know what to expect when a loved one is dying. No matter the underlying causes, there is a common final pathway that most patients travel. 1. Social Withdrawal is normal for the dying patient as the person becomes less concerned about his or her surroundings. Separation begins first from the world no more interest in newspaper or television, then from people no more neighbors visiting, and finally from the children, grandchildren and perhaps even those persons most loved. With this withdrawal comes less of a need to communicate with others, even with close family. 2. Food: The patient will have a decreased need for food and drink as the body is preparing to . This is one of the hardest things for some family to accept. There is a gradual decrease in interest in eating and appetiteeven for their favorite foods. Interest may come and go. The patient is not starving to deaththis reflects the underlying disease. Liquids are preferred to solidsfollow the patients lead and do not force feed. 3. Sleep: The patient will spend more and more time sleeping; it may be difficult for them to keep their eyes open. This is a result of a change in the bodys metabolism as a result of the disease. Tell family to spend more time with the patient during those times when he/she is most alert; this might be the middle of the night. 4. Disorientation: The patient may become confused about time, place and the identity of people around him/her. He/she may see people who are not there, such as family members who have already . Sometimes patients describe welcoming or beckoning. While the patient may not be distressed, it is frequently distressing to family or health daycare director. Gently orient the patient if he or she asks. There is no need to correct the patient if he or she is not distressed. 5. Restlessness: The patient may become restless and pull at the bed linens. These symptoms are also a change in the bodys metabolism. Talk calmly and assuredly with the patient so as not to startle or frighten them. If the patient is a danger to himself or others, you may prescribe sedating neuroleptics (e.g.chlorpromazine), or neuroleptics (e.g. haloperidol) in combination with benzodiazepines (e.g. lorazepam), to help the patient rest. 6. Decreased Senses: Clarity of hearing and vision may decrease. Soft lights in the room may prevent visual misinterpretations. Never assume that the patient cannot hear you, as hearing is the last of the five senses to be lost. 7. Incontinence of urine and bowel movements is often not a problem until is very near. Invite family to participate in direct care; the nurse can help place absorbent pads under the patient for more comfort and cleanliness, or a urinary catheter may be used. The amount of urine will decrease and the urine become darker as becomes near. 8. Physical Changes as approaches: a. The blood pressure decreases; the pulse may increase or decrease. c. The body temperature can fluctuate; fever is common. d. There is increased perspiration often with clamminess. e. The skin color changes: flushed with fever, bluish with cold. A pale yellowish pallor (not to be confused with jaundice) often accompanies approaching . f. Breathing changes also occur. Respirations may increase, decrease or become irregular; periods of no breathing (apnea) are common. g. Congestion will present as a rattling sound in the lungs and/or upper throat. This occurs because the patient is too weak to clear the throat or cough. The congestion can be affected by positioning, may be very loud, and sometimes just comes and goes. Anticholinergic medications (like scopolamine or glycopyrrolate) can help (see Fast Fact #109). Elevating the head of bed and swabbing the mouth with oral swabs give comfort and give the family something to do. h. The arms and legs may become cool to the touch. The hands and feet become purplish. The knees, ankles and elbows are blotchy. These symptoms are a result of decreased circulation. i. The patient will enter a coma before and not respond to verbal or tactile stimuli. HOW TO KNOW THAT HAS OCCURRED No breathing and heartbeat. Loss of control of bowel or bladder. No response to verbal commands or gentle shaking. Eyelids slightly open; eyes fixed on a certain spot. Jaw relaxed and mouth slightly open. Acknowledgement: This Fact Fact was adapted with permission from a family information handout (The Blue Sheet) given to families of [facility]. References 1. Chintan Saldaña I. The terminal phase. In: Tin Bolaños, Sapna SHI, Kellie Null, eds. [place] Textbook of Palliative Medicine. 2nd ed. [place], [place]: [employer]; 1998. 2. Anyi J, John C. Care of the dying patient: the last hours or days of life. BMJ. 2003; 326(6510):30-4. 3. Avinash FD, domingo Coats CF, Tony LL. Competency in End of Life Care: the last hours of living. J Palliat Med. 2003; 6(4):605-613. (6) Generalized weakness: (7) Perforated bowel: (8) Colon cancer metastasized to multiple sites: Plan * Elizabeth has very severe, uncontrolled worsening cancer related pain with concomitant aggressive worsening of cancer burden on recent imaging. * She has tried and failed multiple oral opioids with dose escalation, opioid rotation and then was given prn dose of IV Dilaudid with better relief which unfortunately did not last for long. She may have impaired absorption secondary to her cancer /ostomy status. * I have initiated a Dilaudid MUSIC THERAPY TEACHER for her very severe uncontrolled terminal cancer pain * I have asked CECILIO/Sylvia Del Rosario to request GIP eval * Follow up family meeting with daughter Antionette tomorrow at 11am scheduled. of note, Antionette works here at [employer] in cafeteria and can come to the unit anytime if needed. Thank you for allowing us to participate in the ongoing care of this patient. Please don't hesitate to call or page with any additional concerns. Dr. Deborah Buchanan DNP Director, Palliative Care History of Present Illness Reason for Consultation: On 03/09/23 @ 18:55 Priscila Denny Wrote To Renae Reza Comfort Care Attending Physician: Jurgen Ferreira MD History of Present Illness Elizabeth is a 62yo female with stage IV colon cancer with mets to the liver who presents to ED secondary to generalized weakness and fall x2. Per admitting note: "recent hospitalization at [facility] 02/07-02/25 secondary to sigmoid colon mass, contained perforation and development of a pelvic abscess. She required IR drainage of abscess and eventual creation of colostomy for bowel function. She was seen and evaluated by infectious disease and antibiotics were de- escalated to Cipro and Flagyl for 21 days, to complete on 03/26/2023. She returns to hospital today due to generalized weakness, and fall x2." CT abd/pelvis: Re-demonstration of an ulcerated rectosigmoid mass consistent with malignancy and an associated 7.8 x 6.9 cm fluid and gas containing collection at site of tumor which favors a contained perforation with abscess formation. Interval development of a contiguous left adnexal gas and fluid containing collection measuring 8.6 x 7.2 cm suggestive of an additional abscess which surrounds a left adnexal cystic lesion. 2. No bowel obstruction. Status post right-sided colostomy. 3. Progression of metastatic disease, including increase in hepatic metastases and peritoneal implants. Re-demonstration of multiple implants adjacent to the primary tumor and pelvic lymphadenopathy. 4. Moderate gallbladder distention. Small amount of perihepatic and pericholecystic fluid. If suspicion for acute cholecystitis, a nuclear medicine hepatobiliary scan could be obtained. 5. Anasarca. 6. Airspace opacities within the lungs which may reflect an infectious process. She has had a surgical ostomy and drain for abscess placed at OSH. She has significant output from both. She has had worsening BLE edema which is now pitting. She is unable to move around freely due to progressive weakness. With primary team discussion, pt elected transition to comfort care. She tells me her pain has made her life misery. Her cancer was dx in Dec 2022 and she has been on a steady downhill course since then and she feels her cancer is very rapidly consuming her. She is more weak, fatigued and not tolerating more than liquids for now. She admits to a very dry mouth and finds ice chips help the most. Elizabeth tells me she has grown despondent with her rapid cancer progression, severe escalation of cancer pain and the general mishaps she has endured between OSH dc and pain medications not ordered in sufficient quantity at dc. This led to a very severe pain crisis and then several days spent trying to catch up, now she is trying to "just live with it, I guess, it's pretty much a 5/10 at best and that's if I don't move at all." Her pain is diffuse through her abdomen, radiating around to her back, upper abd quadrants and lower chest. It can be alternatingly throbbing/pulsing, stabbing and burning. There is a sensation of feeling stretched and everything is tight. She is unable to sleep restoratively. She is waking up with constant breakthrough pain. She has had several modifications for pain with oxycodone to OxyContin with oxycodone to OxyContin with soma and then MS Contin with Oxy IR - all of which has provided zero sustained relief. She has had a few doses of IV Dilaudid this admission and notes that has been helping the most but wears off too soon and pain escalates back up rapidly. Patient is seen together with her family at bedside, including her daughter Antionette who is an [employer] employee as well as her sister and a close friend. Patient states pain is not well controlled. At best it is 5/10 and that is if she doesn't move at all. She has mild nausea but this has not been disruptive She is feeling very weak Allergies Allergy/AdvReac Type Severity Reaction Status Date / Time amoxicillin Allergy Severe FACE Verified 02/06/23 15:07 SWELLED bupropion Allergy Severe ANAPHYLAXIS Verified 02/06/23 15:07 Home Medications Medication Instructions Recorded Confirmed Type multivitamin 1 tab PO DAILY 12/30/22 03/09/23 History docusate sodium 100 mg capsule 100 mg PO AMHS 01/25/23 03/09/23 History (Colace) lisinopril 10 mg tablet 10 mg PO DAILY 01/25/23 03/09/23 History acetaminophen 500 mg tablet 1,000 mg PO Q8 03/01/23 03/09/23 History oxycodone 10 mg tablet 10 mg PO Q6H PRN severe incisional 03/01/23 03/09/23 History pain prochlorperazine maleate 10 mg 10 mg PO Q6 PRN Nausea 03/01/23 03/09/23 History tablet baclofen 10 mg tablet 10 mg PO Q8H PRN Spasms 03/09/23 03/09/23 History carisoprodol 350 mg tablet 350 mg PO BID PRN Muscle Spasm 03/09/23 03/09/23 History ciprofloxacin HCl 500 mg tablet 500 mg PO BID 03/09/23 03/09/23 History metronidazole 500 mg tablet 500 mg PO Q8H 03/09/23 03/09/23 History mirtazapine 15 mg tablet 15 mg PO HS 03/09/23 03/09/23 History morphine 30 mg tablet,extended 30 mg PO Q12H 03/09/23 03/09/23 History release (MS Contin) sennosides 8.6 mg capsule (senna) 8.6 mg PO HS PRN Constipation 03/09/23 03/09/23 History Patient History Medical History (Updated 03/10/23 @ 12:48 by Deborah Buchanan, RONA) Cancer related pain Colon cancer metastasized to multiple sites Encounter for end of life care Encounter for hospice care discussion Graves disease Metastatic colon cancer in female (01/01/23) Need for comfort care No pertinent past medical history Palliative care by specialist Surgical History History of cervical cerclage History of liver biopsy 01/01/23 Hx of cataract surgery Bilateral Hx of colonoscopy 01/01/23 with biopsy of colon mass Previous section S/P fine needle aspiration Pancreas on 01/01/23 Family History Mother , 86yo Cervical cancer Hypertension Father , 86yo Diverticulitis CHF (congestive heart failure) Hypertension Brother No problems noted. Brother No problems noted. Brother No problems noted. Sister Hypertension Sister Hypertension Sister No problems noted. Daughter No problems noted. Daughter No problems noted. 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 Bitemp wasting noted PERRLA, EOMIs Oral mucosa dry, dentition intact Neck supple, no stridor or JVD Chest with diminished breath sounds, coarse rhonchi bilaterally, mild inc effort with conversational dyspnea noted CV tachycardic S1S2, no JVD Abd: +ostomy on right and + drain mid lower quadrant; abd with generalized tenderness as well as marked increased tenderness with guarding mid to right celeste, rigidity noted right lower to flank region MS: generalized weakness Ext: +3 pitting edema to mid thighs Skin: cool to touch, no overt cyanosis or clubbing Neuro: AAOx3, able to follow commands while awake, easily drifts off at times but rouses easily and quickly to voice Psych: subdued affect. patient with clear thought process, understanding implications of decisions Results & Data Vital Signs (Past 12 Hours) Vital Signs Temp Pulse Resp BP Pulse Ox O2 Del Method O2 Flow Rate 03/10/23 01:31 Nasal Cannula 2 03/09/23 22:12 Nasal Cannula 2 03/09/23 22:12 36.8 C 91 H 16 155/87 H 96 Nasal Cannula 2 Laboratory Results data reviewed, OSH studies reviewed, [employer] EMR link reviewed Diagnostic Findings data reviewed, OSH studies reviewed, [employer] EMR link reviewed CT ABd pel 03/09/23: 1. Re-demonstration of an ulcerated rectosigmoid mass consistent with malignancy and an associated 7.8 x 6.9 cm fluid and gas containing collection at site of tumor which favors a contained perforation with abscess formation. Interval development of a contiguous left adnexal gas and fluid containing collection measuring 8.6 x 7.2 cm suggestive of an additional abscess which surrounds a left adnexal cystic lesion. 2. No bowel obstruction. Status post right-sided colostomy. 3. Progression of metastatic disease, including increase in hepatic metastases and peritoneal implants. Redemonstration of multiple implants adjacent to the primary tumor and pelvic lymphadenopathy. 4. Moderate gallbladder distention. Small amount of perihepatic and pericholecystic fluid. If suspicion for acute cholecystitis, a nuclear medicine hepatobiliary scan could be obtained. 5. Anasarca. 6. Airspace opacities within the lungs which may reflect an infectious process. PG Care Time/CCT Total # of Minutes Spent Total Time Spent: 155 Total Time Spent with Patient: Total time spent is greater than 50% in coordination of care (as documented) at patient's floor/unit and/or counseling patient: I spent 155 minutes overall addressing this complex case: 20 in medical data review/discussion with referring provider(s) and/or preparation for the visit including reviews of OSH data, imaging, operative and clinic follow up reports. 45 in direct interaction with the patient and family 60 Advance Care Planning/Goals of Care discussions as detailed above in note (must be >16min) 15 in subsequent review and synthesis of assessment and plan 15 in communicating with other providers regarding the patient's case: nursing, primary team Prolonged Care Time Prolonged Care Time: Yes Advanced Care Planning 08348 Advanced Care Planning 30 Min 61630 Advanced Care Planning Additional 30 [place] [address] IN/OBS CONSULT LVL 5,80M Patient Type New History Comprehensive Exam Comprehensive Medical Decision Making High Complexity Diagnoses Palliative care by specialist Z51.5 Cancer related pain G89.3 Need for comfort care Encounter for hospice care discussion Z71.89 Encounter for end of life care Z51.5 Generalized weakness R53.1 Perforated bowel K63.1 Colon cancer metastasized to multiple sites C18.9 Additional Codes Advanced Care Planning - 47194 Advanced Care Planning 30 Min: 50068 Advanced Care Planning 30 Min ([id number]) Advanced Care Planning - 95467 Advanced Care Planning Additional 30 Min: 01363 Advanced Care Planning Additional 30 Min ([id number]) Prolonged Care Time - Prolonged Care Time: Yes ([id number])
[2023-03-10] MEDS: MoRPHine SULFATE CR 15 MG TABCR PO SCH (09:43)
[2023-03-10] MEDS ORDERED: HYDROmorphone PCA 30 MG/30 ML IV PRN (12:24)
[2023-03-10] MEDS ORDERED: LORazepam 2 MG/1 ML VIAL IV PRN (12:26)
[2023-03-10] MEDS ORDERED: SODIUM CHLORIDE 0.9% 1000ML 1,000 ML IV SCH (12:30)
--- NOTE | 2023-03-10 16:42 | Hospitalist Progress Note ---
Date of Service March 10, 2023 Assessment & Plan (1) Fall: (2) Generalized weakness: (3) Metastatic colon cancer in female: Plan per previous hospitalist notes with addendum: This is a 62-year-old female who has significant past medical history of stage IV colon cancer with mets to the liver who presents to ED secondary to generalized weakness and fall x2. Patient with recent hospitalization at [facility] 02/07-02/25 secondary to sigmoid colon mass, contained perforation and development of a pelvic abscess. She required IR drainage of abscess and eventual creation of colostomy for bowel function. She was seen and evaluated by infectious disease and antibiotics were de-e scalated to Cipro and Flagyl for 21 days, to complete on 03/26/2023. She returns to hospital today due to generalized weakness, and fall x2. In ED patient is hemodynamically stable. She does have a significant leukocytosis. Since discharge from hospital patient reports a significant amount of abdominal pain after running out of oxycodone from hospital stay. She has established with [facility] palliative medicine and goal is pain control and bowel function. Plan is to trial chemotherapy once infection resolves. She was started on pain regimen. Fall Generalized weakness Stage IV colon cancer Recent bowel perforation secondary to colon cancer Pelvic abscesses Ostomy status Hypoxia/Pneumonitis/PE Comfort measures only status Patient was initially admitted to telemetry with IV antibiotics and general surgery consult CT abd/pelvis: . Redemonstration of an ulcerated rectosigmoid mass consistent with malignancy and an associated 7.8 x 6.9 cm fluid and gas containing collection at site of tumor which favors a contained perforation with abscess formation. Interval development of a contiguous left adnexal gas and fluid containing collection measuring 8.6 x 7.2 cm suggestive of an additional abscess which surrounds a left adnexal cystic lesion. 2. No bowel obstruction. Status post right-sided colostomy. 3. Progression of metastatic disease, including i ncrease in hepatic metastases and peritoneal implants. Redemonstration of multiple implants adjacent to the primary tumor and pelvic lymphadenopathy. 4. Moderate gallbladder distention. Small amount of perihepatic and pericholecystic fluid. If suspicion for acute cholecystitis, a nuclear medicine hepatobiliary scan could be obtained. 5. Anasarca. 6. Airspace opacities within the lungs which may reflect an infectious process. Attending further discussed with patient underlying prognosis and patient wished to not be transferred and to be comfort measures only. She does not want to pursue any further treatment, antibiotics or IV fluids and wishes to remain comfortable. We will proceed with wishes and stop antibiotics, consult palliative care No labs, IVs etc. DNR/DNI 03/10 Comfortable overall Continue Dilaudid SHEET METAL HELPER pump Continue other as needed meds DVT ppx: none / comfort status DNR/DNI Dispo: med tele PCP: Aquiles Perkins plan of care discussed with patient and her family at the bedside all questions answered they are understanding, agreeable, comfortable with the plan of care Admission and Anticipated Discharge Date Admission Date: March 09, 2023 Subjective Follow-up for comfort measures status only, etc. Seen sitting up in bed, on oxygen supplement, on Dilaudid pump Oriented, not in distress, very pleasant States she feels comfortable overall Pain well controlled with the Dilaudid pump No abdominal pain, nausea vomiting No other new symptoms Review of Systems Review of Systems: all noted and negative except for above Physical Exam Physical Exam: General- oriented x 3, not in distress, speaks in sentences with no effort or accessory muscle use Drowsy Eyes- anicteric Neck- no JVD Lungs- clear breath sounds bilaterally, no rales/wheezes Heart- normal rate, regular rhythm; no murmurs Abdomen- normal bowel sounds, nondistended, soft, nontender Extremities- no pretibial edema, no calf tenderness Neuro- alert, oriented x 3; no gross focal neurologic deficits Skin- warm & dry Results & Data Results & Data Vital Signs (Past 12 Hours) Vital Signs O2 Del Method O2 Flow Rate 03/10/23 10:26 Nasal Cannula 2 all noted and reviewed including below
[2023-03-10] MEDS ORDERED: SENNA 8.6 MG TAB PO SCH (21:00)
[2023-03-12 09:56] LABS: A calco-baum cmplx NotReported Not Detected (NotDetected); Bact fragilis Not Reported Not Detected (NotDetected); C auris Not Reported Not Detected (NotDetected); Calbicans Not Reported Not Detected (NotDetected); Candida glabrata Not Reported Not Detected (NotDetected); Candida krusei Not Reported Not Detected (NotDetected); Cneoformans/gatti Not Reported Not Detected (NotDetected); Cparapsilosis Not Reported Not Detected (NotDetected); Ctropicalis Not Reported Not Detected (NotDetected); E cloacae compx Not Reported Not Detected (NotDetected); Efaecalis Not Reported Not Detected (NotDetected); Efaecium Not Reported Not Detected (NotDetected); Enterobacterales Not Reported Not Detected (NotDetected); Escherichia coli Not Reported Not Detected (NotDetected); H influenzae Not Reported Not Detected (NotDetected); K aerogenes Not Reported Not Detected (NotDetected); Koxytoca Not Reported Not Detected (NotDetected); Kpneumoniae grp Not Reported Not Detected (NotDetected); Lmonocyt Not Reported Not Detected (NotDetected); N meningitidis Not Reported Not Detected (NotDetected); P aeruginosa Not Reported Not Detected (NotDetected); Proteus spp Not Reported Not Detected (NotDetected); Salmonella spp Not Reported Not Detected (NotDetected); Smarcescens Not Reported Not Detected (NotDetected); Staph lugdunensis Not Reported Not Detected (NotDetected); Staph spp. Not Reported Not Detected (NotDetected); Staphaureus Not Reported Not Detected (NotDetected); Staphepi Not Reported Not Detected (NotDetected); Stenmaltophilia Not Reported Not Detected (NotDetected); Strep agal(GrpB) Not Reported Not Detected (NotDetected); Strep pneum Not Reported Not Detected (NotDetected); Strep pyog (GrpA) Not Reported Not Detected (NotDetected); Strep spp Not Reported Not Detected (NotDetected)
== END 2023-03-10 18:15 | disposition hospice, inpatient (51) | DRG 374 ==
LOC: ED 02:00 → SUATTDRO 12:01 → EDINP 12:01 → 2W 12:55 → 3N 03-10 00:12

== ENCOUNTER 2023-03-10 18:15 | Inpatient (IN) ==
[2023-03-10] MEDS ORDERED: BACLOFEN 10 MG TAB PO PRN (21:15)
[2023-03-10] MEDS ORDERED: ONDANSETRON 4 MG OD TAB SL PRN (21:15)
[2023-03-10] MEDS: HYDROmorphone PCA 30 MG/30 ML IV PRN (22:45)
[2023-03-11] MEDS: SODIUM CHLORIDE 0.9% 1000ML 1,000 ML IV SCH (02:40)
[2023-03-11] MEDS: LORazepam 2 MG/1 ML VIAL IV PRN ×2 (09:14→15:34)
[2023-03-11] MEDS: DOCUSATE SODIUM 100 MG CAP PO SCH ×4 (09:17→20:38)
[2023-03-11] MEDS: SENNOSIDES 8.8 MG/5 ML UDC PO SCH (09:18)
--- NOTE | 2023-03-11 09:25 | Palliative Care Consultation ---
Date of Consultation March 11, 2023 Assessment & Plan (1) Palliative care by specialist: (2) Cancer related pain: Patient is happy with current MECHANICAL RESEARCH ENGINEER. We discussed a gentle up titration to 0.4mg per hour basal rate but SHE DOES NOT WANT THIS INCREASED TODAY and would like to see how she does using her MECHANICAL RESEARCH ENGINEER bolus dose more consistently. Reviewed MECHANICAL RESEARCH ENGINEER rationale with family and that this device is solely for pt use. Nursing can administer additional bolus dose through infusion if acutely needed. Families are not to operate or utilize the MECHANICAL RESEARCH ENGINEER feature. Family verbalized understanding and all questions were answered to their apparent satisfaction. (3) Need for comfort care: see above + some dyspnea, mild. Box fan ordered, air movement across the face will reduce dyspnea and patient reports increased relief with fan. (4) Encounter for hospice care discussion: She is now admitted to [facility] (5) Encounter for end of life care: (6) Generalized weakness: (7) Perforated bowel: (8) Colon cancer metastasized to multiple sites: Plan * Ongoing terminal cancer pain and sx mgt underway * I have added a prn bolus for nursing in case of any refractory pain or terminal air hunger needs * Box fan on low to assist with reducing dyspnea as noted above * Remains on [facility] hospice, anticipated survival days to few weeks at most * Family education and support provided. All in agreement for peaceful EOL process. * Updated primary team and nursing. Thank you for allowing us to participate in the ongoing care of this patient. Please don't hesitate to call or page with any additional concerns. Dr. Deborah Buchanan [facility] Director, Palliative Care History of Present Illness Reason for Consultation: New admit to [facility] inpatient hospice, for continuity of care Attending Physician: Jurgen Ferreira MD History of Present Illness please see pall med consult note from yesterday. all details verified and confirmed, no change to HPI since inpatient admission consult of 03/10/23, same for today's new consult for [facility] admission. Elizabeth was started on a Dilaudid MECHANICAL RESEARCH ENGINEER yesterday for very severe, uncontrolled terminal cancer pain with failure or multiple, escalating opioids both oral and IV prn dosing. She reports improved pain control today. Family relieved to see her less distressed. She was able to sleep a little bit without constant reawakening from pain but still tired and notes she has been without refreshing/restorative sleep chronically for several weeks. Additional family are present today including another dtr + signif other, another sister+ grandchild and close family friend Cortney. Daughter Antionette remains at bedside. Elizabeth admits she likes having more control over using her pain med when needed but also sometimes forgets. On the whole she feels pain relief is better, but still hovers 8-9 with repositioning, wound/ostomy care etc. Tolerating clear liquids, denies nausea A little less tired, tells me she feels "brighter" after getting some uninterrupted sleep. Some mild air hunger today - does not want to use Dilaudid prn for this as she does not feel it is intense enough, asking for lower intensity therapy options Allergies Allergy/AdvReac Type Severity Reaction Status Date / Time amoxicillin Allergy Severe FACE Verified 02/06/23 15:07 SWELLED bupropion Allergy Severe ANAPHYLAXIS Verified 02/06/23 15:07 Home Medications Medication Instructions Recorded Confirmed Type oxycodone 10 mg tablet 10 mg PO Q6H PRN severe incisional 03/01/23 03/09/23 History pain morphine 30 mg tablet,extended 30 mg PO Q12H 03/09/23 03/09/23 History release (MS Contin) hydromorphone (PF) 30 mg/30 mL (1 30 mg (30 mL) IV PRN PRN 03/10/23 Rx mg/mL) in 0.9 % NaCl IV MECHANICAL RESEARCH ENGINEER syringe breakthrough pain #30 mL lorazepam 2 mg/mL injection 1 mg (0.5 mL) IV Q4H PRN anxiety 03/10/23 Rx solution #10 mL Patient History Medical History (Updated 03/10/23 @ 12:48 by Deborah Buchanan, RONA) Cancer related pain Colon cancer metastasized to multiple sites Encounter for end of life care Encounter for hospice care discussion Graves disease Metastatic colon cancer in female (01/01/23) Need for comfort care No pertinent past medical history Palliative care by specialist Surgical History History of cervical cerclage History of liver biopsy 01/01/23 Hx of cataract surgery Bilateral Hx of colonoscopy 01/01/23 with biopsy of colon mass Previous section S/P fine needle aspiration Pancreas on 01/01/23 Family History Mother , 86yo Cervical cancer Hypertension Father , 86yo Diverticulitis CHF (congestive heart failure) Hypertension Brother No problems noted. Brother No problems noted. Brother No problems noted. Sister Hypertension Sister Hypertension Sister No problems noted. Daughter No problems noted. Daughter No problems noted. Social History Smoking Status: Former smoker Tobacco Type: Cigarettes Cigarettes Per Day: Less than 1 PPD x 25yrs; Smoking End Date: december 2022; Second Hand Exposure: Yes; Hx Alcohol Use: Yes Alcohol type: hard liquor Hx Substance Use: No Preferred Language: Yi Communication Ability: Effective Visual Impairment: No Limitations Hearing Ability: Normal Warehouse Distribution Specialist Required: No Beliefs That Will Affect Care: None marital status: / Current Living Situation: Family Current Living Situation Comment: lives with brother current occupational status: retired current occupation: Cooked at [employer] How many Children do You have: 2 Other Information That Helps Us Care for You: No Feels Safe at Home: Yes Safety Concerns: Feels Safe At This Time caffeine: Yes (3-4 cups/day) during the past year weight has: decreased > 10 lbs Assistive Devices: Walker Review of Systems Review of Systems: All systems reviewed & are unremarkable except as noted in Subjective Physical Exam Physical Exam: Chronically ill appearing female, in distress, grimacing at times with pain on palpation Bitemp wasting noted PERRLA, EOMIs Oral mucosa dry, dentition intact Neck supple, no stridor or JVD Chest with diminished breath sounds, coarse rhonchi bilaterally, normal resp effort, milder conversational dyspnea with prolonged discussion CV tachycardic S1S2, no JVD Abd: +ostomy on right and + drain mid lower quadrant; abd with generalized tenderness as well as marked increased tenderness across lower quadrants today as well as +guarding; rigidity noted right lower to flank region MS: generalized weakness; bilat hand strength is equal and intact; resistance and erp engineer intact, she demonstrates more than adequate strength to depress the MECHANICAL RESEARCH ENGINEER bolus dose button Ext: +3 pitting edema to mid thighs Skin: cool to touch, no overt cyanosis or clubbing Neuro: AAOx3, able to follow commands while awake, easily drifts off at times but rouses easily and quickly to voice Psych: more alert and peaceful today; happy to see her family Results & Data Vital Signs (Past 12 Hours) Vital Signs Temp Pulse Resp BP Pulse Ox O2 Del Method O2 Flow Rate 03/11/23 07:00 37.1 C 108 H 18 133/81 95 Nasal Cannula 1.5 03/11/23 02:46 36.7 C 104 H 16 131/82 94 Nasal Cannula 2 03/10/23 22:30 Nasal Cannula FiO2 03/11/23 07:00 03/11/23 02:46 03/10/23 22:30 2 Laboratory Results no new data Diagnostic Findings no new data PG Care Time/CCT Total # of Minutes Spent Total Time Spent: 64 Total Time Spent with Patient: Total time spent is greater than 50% in coordination of care (as documented) at patient's floor/unit and/or counseling patient: Coding [place] [address] IN/OBS CONSULT LVL 5,80M Patient Type Established History Comprehensive Exam Comprehensive Medical Decision Making High Complexity Diagnoses Palliative care by specialist Z51.5 Cancer related pain G89.3 Need for comfort care Encounter for hospice care discussion Z71.89 Encounter for end of life care Z51.5 Generalized weakness R53.1 Perforated bowel K63.1 Colon cancer metastasized to multiple sites C18.9
--- NOTE | 2023-03-11 18:08 | Hospitalist Progress Note ---
Date of Service March 11, 2023 Assessment & Plan (1) Comfort measures only status: Plan: Inpatient hospice service evaluation noted We will increase basal rate of Dilaudid TANK TRUCK MILK RECEIVER pump to 0.4 Continue other as needed medications plan of care discussed with patient's children at the bedside in detail and at length all questions answered They are understanding, agreeable, comfortable with the plan of care Admission and Anticipated Discharge Date Admission Date: March 10, 2023 Subjective Follow-up for comfort measures status only, etc. Patient seen resting in bed, lethargic, not in distress Somewhat awakens to tactile stimuli, nods to some questions Appears comfortable overall Patient's daughters at the bedside No other new issues Review of Systems Review of Systems: all noted and negative except for above Physical Exam Physical Exam: General-not in distress, no accessory muscle use Lungs- clear breath sounds bilaterally, no rales/wheezes Results & Data Results & Data Vital Signs (Past 12 Hours) Vital Signs Temp Pulse Resp BP Pulse Ox O2 Del Method O2 Flow Rate 03/11/23 09:24 Nasal Cannula 2 03/11/23 07:00 37.1 C 108 H 18 133/81 95 Nasal Cannula 1.5
[2023-03-11] MEDS: MIRTAZAPINE TAB 15 MG TAB PO SCH ×2 (20:29→20:38)
[2023-03-12] MEDS: SODIUM CHLORIDE 0.9% 1000ML 1,000 ML IV SCH (01:29)
[2023-03-12] MEDS: DOCUSATE SODIUM 100 MG CAP PO SCH ×2 (09:32→20:33)
[2023-03-12] MEDS: SENNOSIDES 8.8 MG/5 ML UDC PO SCH (09:32)
[2023-03-12] MEDS ORDERED: HYDROmorphone BOLUS from BAG IV PRN (10:26)
--- NOTE | 2023-03-12 16:59 | Hospitalist Progress Note ---
Date of Service March 12, 2023 Assessment & Plan (1) Comfort measures only status: Plan: Dilaudid KNIFE CUTTER pump basal rate increased to 0.6 Appears comfortable overall Continue other as needed medications plan of care discussed with patient's daughter at the bedside in detail and at length all questions answered She is understanding, agreeable, comfortable with the plan of care Admission and Anticipated Discharge Date Admission Date: March 10, 2023 Subjective Follow-up for comfort measures status ,, etc. Seen at the bedside, patient's daughter Antionette at bedside Patient mostly sleeping Opens eyes briefly to verbal stimuli Comfortable overall No other new symptoms Review of Systems 2 Review of Systems: all noted and negative except for above Physical Exam Physical Exam: General-not in distress, breathing without effort or accessory muscle use Lungs- clear breath sounds bilaterally anteriorly Results & Data Results & Data Vital Signs (Past 12 Hours) Vital Signs O2 Del Method O2 Flow Rate 03/12/23 12:33 Nasal Cannula 2 all noted and reviewed including below
--- NOTE | 2023-03-12 19:54 | Palliative Care Progress Note ---
Date of Service March 12, 2023 Assessment & Plan (1) Palliative care by specialist: (2) Cancer related pain: Plan: nDilaudid increased to 0.6mg per hour with 0.5mg urban renewal manager bolus q10. In addition, I added a prin dose to be nurse administered for refractory pain (3) Encounter for end of life care: (4) Generalized weakness: (5) Abdominal pain: (6) Perforated bowel: (7) Abdominal abscess: (8) Metastatic colon cancer in female: Plan Continue dilaudid urban renewal manager as ordered above for very severe, refractory terminal cancer pain. Continue inpatient hospice care. She continues to have complex pain mgt needs which cannot be safely managed at home, with orals or in a longterm without the specialized skills of hospice. i met with dtr keegan at bedside. all questions were answered to her and pt satisfaction. goals remains to assure a peaceful, comfortable eol process and maximize time with family. logotherapy and psychosocial support provided. legacy projects reviewed, some underway and a few more letters to specific family members planned for today. Thank you for allowing us to participate in the ongoing care of this patient. Please don't hesitate to call or page with any additional concerns. Dr. Deborah Buchanan DNP Director, Palliative Care Admission and Anticipated Discharge Date Admission Date: March 10, 2023 Subjective Resting in bed, reports pain increased and asking if hourly rate can be increased. remains awake and interactive, enjoying visits with family. Shares that her daughter stayed with her last night. No nausea. Has fan on low at times, feels it has been helping with dyspnea control. Review of Systems Review of Systems: All systems reviewed & are unremarkable except as noted in Subjective Physical Exam Physical Exam: Chronically ill appearing female, in distress, grimacing at times with pain on palpation Bitemp wasting noted PERRLA, EOMIs Oral mucosa dry, dentition intact Neck supple, no stridor or JVD Chest with diminished breath sounds, coarse rhonchi bilaterally, normal resp effort, milder conversational dyspnea with prolonged discussion CV tachycardic S1S2, no JVD Abd: +ostomy on right and + drain mid lower quadrant; abd with generalized tenderness as well as marked increased tenderness across lower quadrants today as well as +guarding; rigidity noted right lower to flank region MS: generalized weakness; bilat hand strength is equal and intact; resistance and basket mender intact, she demonstrates more than adequate strength to depress the DUCT LAYER bolus dose button Ext: +3 pitting edema to mid thighs Skin: cool to touch, no overt cyanosis or clubbing Neuro: AAOx3, able to follow commands while awake, easily drifts off at times but rouses easily and quickly to voice Psych: more alert and peaceful today; happy to see her family Results & Data Vital Signs (Past 12 Hours) Vital Signs O2 Del Method O2 Flow Rate 03/12/23 12:33 Nasal Cannula 2 PG Care Time/CCT Total # of Minutes Spent Total Time Spent: 75 Total Time Spent with Patient: Total time spent is greater than 50% in coordination of care (as documented) at patient's floor/unit and/or counseling patient: Coding [place] [address] SUB INP/OBS CARE 3/50MIN Patient Type Established History Comprehensive Exam Comprehensive Medical Decision Making High Complexity Diagnoses Palliative care by specialist Z51.5 Cancer related pain G89.3 Encounter for end of life care Z51.5 Generalized weakness R53.1 Abdominal pain R10.9 Perforated bowel K63.1 Abdominal abscess Metastatic colon cancer in female C18.9
[2023-03-12] MEDS: HYDROmorphone PCA 30 MG/30 ML IV PRN (20:30)
[2023-03-12] MEDS: MIRTAZAPINE TAB 15 MG TAB PO SCH (20:33)
[2023-03-13] MEDS: SODIUM CHLORIDE 0.9% 1000ML 1,000 ML IV SCH (01:54)
[2023-03-13] MEDS: DOCUSATE SODIUM 100 MG CAP PO SCH (10:06)
[2023-03-13] MEDS: SENNOSIDES 8.8 MG/5 ML UDC PO SCH (10:07)
[2023-03-13] MEDS ORDERED: HYDROmorphone BOLUS from BAG IV ONE (17:53)
[2023-03-13] MEDS ORDERED: HYDROmorphone BOLUS from BAG IV PRN (18:36)
[2023-03-14] MEDS: HYDROmorphone PCA 30 MG/30 ML IV PRN (05:33)
[2023-03-14] MEDS: LORazepam 2 MG/1 ML VIAL IV PRN (07:52)
[2023-03-14] MEDS: SODIUM CHLORIDE 0.9% 1000ML 1,000 ML IV SCH (13:49)
[2023-03-14] MEDS ORDERED: MoRPHine BOLUS from BAG IV PRN (13:57)
[2023-03-14] MEDS ORDERED: MoRPHine SULF/NSS 250 MG/250 ML BTL IV SCH (15:15)
[2023-03-14] MEDS ORDERED: HYDROmorphone BOLUS from BAG IV PRN ×2 (15:23→15:59)
[2023-03-14] MEDS ORDERED: NALOXONE HCL 0.4 MG/1 ML VIAL/CARP IV PRN (15:23)
[2023-03-14] MEDS ORDERED: HYDROmorphone PCA 30 MG/30 ML IV PRN (15:23)
[2023-03-14] MEDS ORDERED: HYDROmorphone/NSS 100 MG/100 ML BAG IV SCH (15:30)
[2023-03-14] MEDS ORDERED: SODIUM CHLORIDE 0.9% 1000ML 1,000 ML IV SCH (15:30)
--- NOTE | 2023-03-14 16:22 | Hospitalist Progress Note ---
Date of Service March 14, 2023 Assessment & Plan (1) Comfort measures only status: Plan: Dilaudid REEL BLADE BENDER FURNACE TENDER pump basal rate increased to 1.2 discussed with RN, ordered 0.5mg bolus dose q30m for tachypnea, respiratory distress, agitation Continue other as needed medications Admission and Anticipated Discharge Date Admission Date: March 10, 2023 Subjective ff up for comfort measures , etc seen sleeping, tachypneic not in distress, no signs of pain per RN, family reports patient does not appear that comfortable earlier today no other issues noted Review of Systems Review of Systems: all noted and negative except for above Physical Exam Physical Exam: General-tachypneic Lungs- clear breath sounds anteriorly Results & Data Results & Data Vital Signs (Past 12 Hours) Vital Signs O2 Del Method O2 Flow Rate 03/14/23 07:25 Nasal Cannula 2 all noted and reviewed including below
[2023-03-15] MEDS: SODIUM CHLORIDE 0.9% 1000ML 1,000 ML IV SCH (03:09)
--- NOTE | 2023-03-15 05:27 | Death Pronouncement Note ---
Date of Service March 15, 2023 Pronouncement Note Admission Date March 10, 2023 Date and Time of Date of : 03/15/23 Time of : 05:30 Summary Discharge summary and certificate to be completed by Dr. Ferreira. Additional Data Confirmation of : no pulse, no respirations, no heart sounds and pupils fixed and dilated Attending physician: Jurgen Ferreira MD
--- NOTE | 2023-03-24 14:54 | Discharge Summary ---
Discharge Summary Date of Service March 24, 2023 Notes For Next Care Provider Medication Changes From Visit patient Admission HPI Per Admitting Provider This is a 62-year-old female who has significant past medical history of stage IV colon cancer with mets to the liver who presents to ED secondary to generalized weakness and fall x2. Of significance patient was recently admitted to [facility] [place] from 02/07 to 02/25 secondary to bowel perforation. CT scan demonstrated ulcerated rectosigmoid mass consistent with malignancy, gas and fluid containing collection at site of tumor due to possible perforation versus abscess. She was initially treated conservatively with n.p.o., IV fluid and started on IV Cipro and Flagyl. She subsequently had reassuring serial abdominal examinations however with a worsening lactic acidosis infectious disease was consulted and antibiotics were transitioned to cefepime and Flagyl. Repeat CT demonstrated likely contained perforation without evidence of free air. Again CT was repeated on 02/15 which revealed a pelvic fluid collection and ultimately IR was consulted for drainage. On 02/19 patient underwent diagnostic laparoscopy and a creation of a transverse loop colostomy to promote bowel habits. Her antibiotics were de-escalated to Cipro and Flagyl which is to continue until 03/26. She was discharged from [facility] on 02/25/2023. She lives at home with her brother. She had been transitioning well with the colostomy and had been taking medications as prescribed. She recently followed up with palliative medicine due to abdominal pain and running out of her oxycodone. She was seen by palliative medicine who started her on MS Contin, as needed oxycodone and baclofen. She has not yet started these. Yesterday evening patient sustained a fall where her legs gave out, fell to her knees and her head hit the ground. Overnight she was trying to go to the bathroom and when she was walking out her legs again gave out and she fell on her side. This time patient was unable to get up and daughter had to assist her. Patient was brought to ER due to recurrent falls. She continues to have abdominal pain. She feels her ostomy is functioning appropriately. Currently she has an ostomy bag over her IR drain site and feels drainage has significantly reduced. She complains of sweats but denies any documented fever or chills. She denies any lightheadedness, dizziness, presyncope, chest pain, shortness breath at rest, cough, nausea, vomiting, melena or hematochezia. She does complain of dyspnea on exertion and fatiguing easily. She has significant increased lower extremity swelling which has been present since hospitalization. Of significance patient was diagnosed with initial colon mass via colonoscopy in December due to inability to defecate. Patient denies alcohol use since October. She has also stopped smoking since recent hospitalization. She lives at home with her brother and typically ambulates with a walker. Admission Exam Per Admitting Provider Constitutional: Appears older than stated age, chronically ill-appearing, lying in bed, tearful, WD/WN, vitals as above, NAD, sitting up in bed, pleasant, conversing easily Head: Normocephalic, Atraumatic Eyes: PERRL, conjunctivae normal, anicteric sclerae ENMT: external ear and nose normal, oropharynx normal with dry membranes Neck: trachea midline, no thyromegaly normal visual inspection Respiratory: normal respiratory effort, lungs clear to auscultation, no wheeze, rales, rhonchi. Normal insp/exp effort, no accessory muscle use Cardiovascular: RRR, no murmur, +3 lower ext edema Vessels: no JVD or carotid bruit Chest: normal inspection of chest Abdomen: obese abd, incisions healing well, RLQ ostomy with stool output brown, periumbilical drain site with ostomy bag and minimal output, hypoactive bowel sounds, soft, tender but not rigidity or guarding Musculoskeletal: no cyanosis or clubbing, AROM x 4 Skin: no rashes, warm and dry normal turgor Neurologic: PERRL, EOMI, accommodation nl, no face palsy, no dysarthria CN's II-XI intact bilaterally and moves all extremities Psychiatric: A+Ox3, euthymic affect Lymphatic: no cervical or axillary lymphadenopathy : deferred Principal Dx & Hospital Course #1 = Principal Diagnosis (1) Colon cancer metastasized to multiple sites: (2) Cancer related pain: (3) Comfort measures only status: per admitting service notes with addendum: Fall Generalized weakness Stage IV colon cancer Recent bowel perforation secondary to colon cancer Pelvic abscesses Ostomy status Hypoxia/Pneumonitis/PE Comfort measures only status Patient was initially admitted to telemetry with IV antibiotics and general surgery consult CT abd/pelvis: . Redemonstration of an ulcerated rectosigmoid mass consistent with malignancy and an associated 7.8 x 6.9 cm fluid and gas containing collection at site of tumor which favors a contained perforation with abscess formation. Interval development of a contiguous left adnexal gas and fluid containing collection measuring 8.6 x 7.2 cm suggestive of an additional abscess which surrounds a left adnexal cystic lesion. 2. No bowel obstruction. Status post right-sided colostomy. 3. Progression of metastatic disease, including increase in hepatic metastases and peritoneal implants. Redemonstration of multiple implants adjacent to the primary tumor and pelvic lymphadenopathy. 4. Moderate gallbladder distention. Small amount of perihepatic and pericholecystic fluid. If suspicion for acute cholecystitis, a nuclear medicine hepatobiliary scan could be obtained. 5. Anasarca. 6. Airspace opacities within the lungs which may reflect an infectious process. Attending further discussed with patient underlying prognosis and patient wished to not be transferred and to be comfort measures only. She does not want to pursue any further treatment, antibiotics or IV fluids and wishes to remain comfortable. We will proceed with wishes and stop antibiotics, consult palliative care No labs, IVs etc. patient was provided with medication regimen for comfort measures she was pronounced 03/15/23 at 530am Discharge Exam patient Updated Medication List Medication Instructions Recorded Confirmed Type oxycodone 10 mg tablet 10 mg PO Q6H PRN severe incisional 03/01/23 03/09/23 History pain morphine 30 mg tablet,extended 30 mg PO Q12H 03/09/23 03/09/23 History release (MS Contin) hydromorphone (PF) 30 mg/30 mL (1 30 mg (30 mL) IV PRN PRN 03/10/23 Rx mg/mL) in 0.9 % NaCl IV [employer] syringe breakthrough pain #30 mL lorazepam 2 mg/mL injection 1 mg (0.5 mL) IV Q4H PRN anxiety 03/10/23 Rx solution #10 mL Hospital Stay Data Consultations 03/11/23 09:06 Consult Palliative Care Routine Total Time Total Time Spent Total Time Spent (In Minutes): <30 minutes
== END 2023-03-15 06:15 | disposition expired | DRG 951 ==
LOC: 3N 18:15 → SUATTDRO 18:15